=== PATIENT | male | born 1970 | race Caucasian/White ===

== ENCOUNTER 2024-05-03 06:56 | Outpatient (OUT) | payer MEDICAID, SELFPAY ==
--- NOTE | 2024-05-03 07:15 | NM_ITS ---
Patient Name: WILLIE CANTU MR#: [id number] : 1970 Exam Date: 05/03/2024 Ordering Doctor: DR. ORTIZ TENORIO M.D. RADIOLOGY REPORT PROCEDURE: NM CATHY PERF SPECT REST STR COMPARISON: None. INDICATIONS: PRE PROCEDURE CARDIOVASCULAR EXAM, CORONARY ARTERY DISEASE TECHNIQUE: Exam Description: Stress/Rest one day protocol gated SPECT Rest Imagin.3 mCi Tc-99m Cardiolite IV on 05/03/2024 Stress Imaging 29.9 mCi Tc-99m Cardiolite IV on 05/03/2024 Exercise Protocol: 0.4 mg Lexiscan given IV Heart Rate (bpm): Rest: 63 Max: 92 PMHR: 55 Blood Pressure: Rest: 128/78 Max: 156/83 Symptoms: Rest and peak stress ECG findings were pending and the exercise portion of the study was pending per attending physician Dr. PFEIFFER . For more details please see separate cardiac stress test report. FINDINGS: QUALITY OF STUDY: Good. PERFUSION DEFECT: LOCATION: Apical anterior. [place]. SIZE: Small (1-2 segments). SEVERITY: Mild. TYPE: Persistent. WALL MOTION: Normal. LV SIZE: Normal. 99 mL. TID / TCD: None; 0.9 LVEF: Normal. Calculated EF 74%. SUMMARY: Myocardial perfusion imaging study has ABNORMAL findings. CONCLUSION: 1. Small area of decreased uptake in the distal anterior wall/apex. I favor apically thinning 2. No reversible ischemia 3. Pending exercise test results Dictated by: Shamar Boo MD on 05/03/2024 at 15:45 Approved by: Shamar Boo MD on 05/03/2024 at 15:46
[2024-05-03] MEDS: REGADENOSON 0.4 MG/5 ML SYRINGE IV (09:20)
== END 2024-05-03 06:57 | disposition home or self-care (01) ==
LOC: NM 07:01
PROVIDERS: Visit Provider Internal Medicine Cardiovascular Disease
DX: R06.09 Other forms of dyspnea (principal); I25.118 Atherosclerotic heart disease of native coronary artery with other forms of angina pectoris
CPT/HCPCS: 78452; 93017; A9500; J2785

== ENCOUNTER 2024-05-04 13:40 | Outpatient (OUT) | payer MEDICAID, SELFPAY ==
--- NOTE | 2024-05-04 14:00 | CA_ITS ---
Patient Name: WILLIE CANTU MR#: [id number] : 1970 Exam Date: 05/04/2024 Ordering Doctor: DR. ORTIZ TENORIO M.D. ECHOCARDIOGRAM REPORT PROCEDURE: CA ECHO DOPPLER COMPLETE INDICATIONS: Dyspnea on exertion, WI, cardiac stent, hypertension, smoker COMPARISON: None. DESCRIPTION: COMPLETE ECHOCARDIOGRAM Real-time transthoracic echocardiography with 2D, M-mode, spectral and color flow Doppler performed. QUALITY: Technical quality was good. LEFT VENTRICLE: Normal chamber size. Mild left ventricular hypertrophy. LV EF: Global left ventricular systolic function is normal; visually estimated ejection fraction is 60 to 65%. No obvious wall motion abnormalities. DIASTOLIC: Normal diastolic function. ATRIAL SEPTUM: Inadequately seen. LEFT ATRIUM: Normal chamber size. RIGHT ATRIUM: Normal chamber size. RIGHT VENTRICLE: Normal chamber size. Normal right ventricular systolic function. TRICUSPID VALVE: Normal mobility and thickness. No stenosis with no regurgitation. Unable to assess right-sided pressures due to lack of measurable tricuspid regurgitation. MITRAL VALVE: Normal mobility and thickness. No evidence of mitral valve stenosis. There is no mitral annular calcification. No mitral regurgitation. AORTIC VALVE: Normal trileaflet appearance. No visible sclerosis. Normal leaflet mobility. No evidence of aortic valve stenosis. No aortic regurgitation. AORTIC ROOT: Normal diameter and appearance. Ascending aorta is normal in size. PULMONIC VALVE: Normal thickness and mobility. No stenosis. No regurgitation. PERICARDIUM: No evidence of pericardial effusion. IVC: Collapses with inspirations. IVC is normal in size. CONCLUSION: 1. Global left ventricular systolic function is normal; visually estimated ejection fraction is 60 to 65% 2. Normal right ventricular size and systolic function 3. Mild left ventricular hypertrophy 4. Normal diastolic function 5. No significant valvular abnormalities. Adult Echocardiography Procedure Report Left Ventricle LVEDD (3.7 - 5.6 cm): 4.72 cm LVESD (2.2 - 4.0 cm): 2.73 cm LVIVS thickness (0.6 - 1.2 cm): 0.97 cm LVPW thickness (0.5 - 1.0 cm): 1.25 cm e': 0.13 m/s E - e': 3.50 LVOT Max Gradient: 3.15 mm[Hg] LVOT Area (cm2): 0.89 m/s Peak Velocity (LVOT): 0.89 m/s Mean Velocity (LVOT): 0.54 m/s LVOT Diameter 2.23 cm Left Atrium LA Volume Index (2D A2C): 18.02 ml/m2 Left Atrium Systolic Dimension: 3.44 cm Mitral Valve MV E to A Ratio: 0.76 Mitral Valve A-Wave Peak Velocity: 0.58 m/s Mitral Valve E-Wave Peak Velocity: 0.45 m/s Right Ventricle Aorta AO Root Diam: 3.44 cm Ascending Ao Diam: 2.49 cm Aortic Valve AoV Area (Peak Sudeep): 2.29 cm2, 2.29 cm2 AoV Area (VTI): 2.66 cm2, 2.66 cm2 Peak Velocity(Antegrade Flow): 1.52 m/s Peak Gradient(Antegrade Flow): 9.20 mm[Hg] Mean Velocity(Antegrade Flow): 0.87 m/s Mean Gradient(Antegrade Flow): 3.88 mm[Hg] Velocity Time Integral: 26.52 cm Tricuspid Valve Pulmonic Valve Mean Gradient: 2.57 mm[Hg] Mean Velocity: 0.73 m/s Peak Velocity: 1.21 m/s, 1.23 m/s Peak Gradient: 6.02 mm[Hg], 5.88 mm[Hg] Right Atrium Right Atrium Systolic Pressure: 28.65 ml, 28.65 ml Dictated by: Eugenio Pascual M.D. on 05/05/2024 at 14:58 Approved by: Eugenio Pascual M.D. on 05/05/2024 at 15:18
== END 2024-05-04 13:41 | disposition home or self-care (01) ==
PROVIDERS: Visit Provider Internal Medicine Cardiovascular Disease
DX: R06.09 Other forms of dyspnea (principal)
CPT/HCPCS: 93306

== ENCOUNTER 2025-06-20 09:14 | Outpatient (OUT) | payer MEDICAID, SELFPAY ==
--- OUTSIDE RECORDS SUMMARY | 2025-06-07 09:20 | XMS_ITS ---
Author Organization [facility] Address [address] [place] [address] Care Team Providers Care Contracts Analyst Name Role Phone CHRISTIANO MORTON Primary Care Provider Evans Fowler Unavailable [phone] James Buitrago Unavailable [phone] REASON FOR VISIT S/P RT MIDFOOT ARTHODESIS, SX:03/07, Status post right midfoot fusion Medications Medication SIG (Take, Route, Frequency, Duration) Notes Start Date End Date Status losartan Activeibuprofen 800 mg1 tab(s) orally 3 times a day for 30 days5Active celecoxibActiveatorvastatinActiveacetaminophen-hydrocodone 325 mg-5 mg 1 tab(s) orally every 6 hours for 7 days As needed /5Activecyclobenzaprine 10 mg1 tab(s) orally 3 times a day, as needed for muscle spasms for 20 days/5Activeaspirin 325 mg1 tab(s) orally once a day for 14 day(s)5Active Encounters Encounter Location Date Provider Diagnosis [facility] [address] [place] [address] 06/07/2025 James Buitrago Encounter for other orthopedic aftercare Z47.89 ; Primary osteoarthritis of right foot M19.071 and 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 Assessments Encounter Date Diagnosis (ICD Code) Assessment Notes Treatment Notes Treatment Clinical Notes Section Notes 06/07/2025 Encounter for other orthopedic a ftercare (ICD-10 - Z47.89) Status post right midfoot mytftg2906/07/2025Primary osteoarthritis of right foot (ICD-10 - M19.071)Status post right midfoot tdqqhv2206/07/2025Osteoarthritis of right midfoot (ICD-10 - M19.071)Status post right midfoot wtjzlp6006/07/2025Other Patient examined and evaluated Interval x-rays obtained reviewed in detail Patient was provided updated refill Flexeril will start physical therapy follow- up in 2 months Status post right midfoot fusion Plan Of Treatment Medication Medication Name Sig Start Date Stop Date Notes cyclobenzaprine 10 mg 1 tab(s) orally 3 times a day, as needed for muscle spasms for 20 days 06/07/2025 06/26/2025 Treatment Notes Assessment Notes Other Patient examined and evaluated Interval x-rays obtained reviewed in detail Patient was provided updated refill Flexeril will start physical therapy follow-up in 2 months Pending Test Test Name Order Date NTH - Foot, right 3v WB - [id number] 06/07/20 25 NT - PT Evaluate and Treat x 6 weeks Next Appt Details Follow Up: 2 Months, Reason: Provider Name:James peralta, 08/08/2025 03:30:00 PM, [address] [place] [address], [phone], Progress Notes * WILLIE CANTUDOB: 1 (55 yo M)Acc No.[id number]:06/07/2025 Progress Notes Patient: WILLIE NORWOOD :?James Buitrago DPMDOB:1970???Age:55 Y ???Sex:MaleDate:06/07/2025Phone:[phone]:[address]Pcp:CHRISTIANO MORTON Subjective: * Chief Complaints: * 1 . S/P RT MIDFOOT ARTHODESIS, SX:03/07. 2. Status post right midfoot fusion. * HPI: ???Follow Up:? Dr. Buitrago patient encounter Patient is a 55-year-old male following up from a midfoot arthrodesis of the 2nd and 3rd tarsometatarsal joints performed 03/07/2025 last evaluated 05/10/2025. Interval x-rays were obtained reviewed indetail. Patient overall is doing well was provided updated prescription for Flexeril will be started physical therapy follow-up in the [facility] x 2 months. All questions concerns about medical management were otherwise addressed. * ROS: ???Review systems, 10 systems were reviewed all with benign findings other than stated in history of present illness. * Medical History: * Medications: T aking losartan , Taking celecoxib , Taking atorvastatin , Taking ibuprofen 800 mg tablet 1 tab(s) orally 3 times a day , Taking aspirin 325 mg tablet 1 tab(s) orally once a day , Taking acetaminophen-hydrocodone 325 mg-5 mg tablet 1 tab(s) orally every 6 hours As needed, stop date 06/12/2025 Objective: * Vitals: * Examination: ???General examination: ???Constitutional; alert and oriented x3, no acute distress Vascular; pedal pulses palpable skin temperature within normal limits capillary fill time within normal limits Derm; skin envelope is well maintained, hydrated no further acute soft tissue manifestations of note Neuro; epicritic and protopathic sensations grossly intact Muscular; anatomic alignment of right foot ankle. Minimal swelling over previous operative sites anatomic alignment of right foot ankle. ???X-ray imaging:: ???Imaging, 3 view foot x-ray was obtained including AP oblique lateral view. Patient have intact well-maintained hardware in the form of interfrag screw fixation with dorsal based staple fixation over distribution of the 2nd and 3rd tarsometatarsal joints. ??? Assessment: * Assessment: 1.?Encounter for other orthopedic aftercare - Z47.89 (Primary)???2.?Primary osteoarthritis of right foot - M19.071???3.?Osteoarthritis of right midfoot - M 19.071???Status post right midfoot fusion. Plan: * Treatment: Start cyclobenzaprine tablet, 10 mg, 1 tab(s), orally, 3 times a day, as needed for muscle spasms, 20 days, 60, Refills 0.?LAB: NTH - PT Evaluate and Treat x 6 weeks2.?Primary osteoarthritis of right foot?LAB: NTH - PT Evaluate and Treat x 6 weeks3.?Osteoarthritis of right midfoot?LAB: NTH - PT Evaluate and Treat x 6 weeks4.?Others?Imaging: NTH - Foot, right 3v WB - [id number] Notes: Patient examined and evaluated Interval x-rays obtained reviewed in detail Patient was provided updated refill Flexeril will start physical therapy follow- up in 2 months?? * Procedures: ??? Please note that this patient encounter was created using voice to text software. All efforts in regards to accuracy of documentation are made, however, some errors may be encountered during exchange underwriting consultant. ? * Follow Up: 2 Months Forms: * Images: * Electronic signature of James Buitrago DPM on 06/20/2025 at 09:19 AM EDTSign off status: Pending * Provider: Kiet Buitrago DPM Date: 1 Generated for Printing/Faxing/eTransmitting on:?06/20/2025 09:19 AM EDT History and Physical Notes * HPI (History of Present Illness) CategorySub-CategoryDetailNotesCategory NotesFollow Up Dr. Buitrago patient encounter Patient is a 55-year-old male following up from a midfoot arthrodesis of the 2nd and 3rd tarsometatarsal joints performed 03/07/2025 last evaluated 05/10/2025. Interval x-rays were obtained reviewed indetail. Patient overall is doing well was provided updated prescription for Flexeril will be started physical therapy follow-up in the [facility] x 2 months. All questions concerns about medical management were otherwise addressed. Examination CategorySub-CategoryDetailNotesCategory NotesGeneral examination Constitutional; alert and oriented x3, no acute distress Vascular; pedal pulses palpable skin temperature within normal limits capillary fill time within normal limits Derm; skin envelope is well maintained, hydrated no further acute soft tissue manifestations of note Neuro; epicritic and protopathic sensations grossly intact Muscular; anatomic alignment of right foot ankle. Minimal swelling over previous operative sites anatomic alignment of right foot ankle. X-ray imaging:Imaging, 3 view foot x-ray was obtained including AP oblique lateral view. Patient have intact well-maintained hardware in the form of interfrag screw fixation with dorsal based staple fixation over distribution of the 2nd and 3rd tarsometatarsal joints
--- OUTSIDE RECORDS SUMMARY | 2025-06-12 12:32 | XMS_ITS ---
Author Organization [facility] Address [address] [place] [address] Care Team Providers Care Sr. Manager Name Role Phone CHRISTIANO MORTON Primary Care Provider Evans Fowler Unavailable [phone] James Buitrago Unavailable [phone] REASON FOR VISIT Refill on [place] Medications Medication SIG (Take, Route, Frequency, Duration) Notes Start Date End Date Status acetaminophen-hydrocodone 325 mg-5 mg 1 tab(s) orally every 6 hours for 7 days As needed tive Encounters Encounter Location Date Provider Diagnosis [facility] [address] [place] [address] 06/12/2025 James Buitrago Encounter for other orthopedic aftercare Z47.89 Assessments Encounter Date Diagnosis (ICD Code) Assessment Notes Treatment Notes Treatment Clinical Notes Section Notes 06/12/2025 Encounter for other orthopedic a ftercare (ICD-10 - Z47.89) Plan Of Treatment Medication Medication Name Sig Start Date Stop Date Notes acetaminophen-hydrocodone 32 5 mg-5 mg 1 tab(s) orally every 6 hours for 7 days 06/13/2025 06/20/2025 Next Appt Details Provider Name:James peralta, 08/08/2025 03:30:00 PM, [address] [place] [address], [phone], Progress Notes * WILLIE CANTUDOB: 1 (55 yo M)Acc No.[id number]:06/12/2025 Patient:?WILLIE CANTU :1970???Age:55 Y???Sex:MalePhone:[phone] Address:[address] [place] [address], [address] * Refills Start acetaminophen-hydrocodone tablet, 325 mg-5 mg, orally, 28 Tablet, 1 tab(s), every 6 hours, 7 days, Refills=0 Subjective: * Chief Complaints: * R efill on [place] * Medical History: * Surgical History: * Hospitalization/Major Diagno stic Procedure: * Medications: Objective: * Vitals: * Physical Examination: ??? Assessment: * Assessment: 1.?Encounter for other orthopedic aftercare - Z47.89 (Primary)??? Plan: * Treatment: Start acetaminophen-hydrocodone tablet, 325 mg-5 mg, 1 tab(s), orally, every 6 hours As needed, 7 days, 28 Tablet, Refills 0.?? * Procedure Codes: * true * Date:?Generated for Printing/Faxing/eTransmitting on:?06/20/2025 09:19 AM EDT
--- OUTSIDE RECORDS SUMMARY | 2025-06-14 09:30 | XMS_ITS ---
Author Organization [facility] Address [address] [place] [address] Care Team Providers Care Loan Adviser Name Role Phone CHRISTIANO MORTON Primary Care Provider Evans Fowler Unavailable [phone] James Buitrago Unavailable [phone] REASON FOR VISIT S/P RT MIDFOOT ARTHODESIS, SX:03/07 Encounters Encounter Location Date Provider Diagnosis [facility] [address] [place] [address] [address] [place] [address] 06/14/2025 James Buitrago Plan Of Treatment Next Appt Details Provider Name:James peralta, 08/08/2025 03:30:00 PM, [address] [place] [address], [phone], Progress Notes * WILLIE CANTUDOB: 1 (55 yo M)Acc No.[id number]:06/14/2025 Progress Notes Patient: WILLIE NORWOOD :?James Buitrago DPMDOB:1970???Age:55 Y ???Sex:MaleDate:06/14/2025Phone:[phone]:[address] [place] [address], [place], [id number]:CHRISTIANO MORTON Subjective: * Chief Complaints: * 1 . S/P RT MIDFOOT ARTHODESIS, SX:03/07. * Medical History: Objective: * Vitals: Assessment: Plan: * Treatment: Forms: * Images: * Electronic signature of James Buitrago DPM on 06/20/2025 at 09:18 AM EDTSign off status: Pending * Provider: Kiet Buitrago DPM Date: Generated for Printing/Faxing/eTransmitting on:?06/20/2025 09:18 AM EDT
--- OUTSIDE RECORDS SUMMARY | 2025-06-19 09:02 | XMS_ITS ---
Author Organization [facility] Address [address] [place] [address] Care Team Providers Care Network Security Consultant Name Role Phone CHRISTIANO MORTON Primary Care Provider Evans Fowler Unavailable [phone] James Buitrago Unavailable [phone] REASON FOR VISIT Refill-[place] Medications Medication SIG (Take, Route, Frequency, Duration) Notes Start Date End Date Status acetaminophen-hydrocodone 325 mg-5 mg 1 tab(s) orally every 6 hours, as needed for pain for 7 days tive Encounters Encounter Location Date Provider Diagnosis [facility] [address] [place] [address] 06/19/2025 James Buitrago Primary osteoarthrit is of right foot M19.071 Assessments Encounter Date Diagnosis (ICD Code) Assessment Notes Treatment Notes Treatment Clinical Notes Section Notes 06/19/2025 Primary osteoarthritis of right foot (ICD-10 - M19.071) Plan Of Treatment Medication Medication Name Sig Start Date Stop Date Notes acetaminophen-hydrocodone 32 5 mg-5 mg 1 tab(s) orally every 6 hours, as needed for pain for 7 days 06/19/2025 06/25/2025 Next Appt Details Provider Name:James peralta, 08/08/2025 03:30:00 PM, [address] [place] [address], [phone], Progress Notes * WILLIE CANTUDOB: 1 (55 yo M)Acc No.[id number]:06/19/2025 Patient:?WILLIE CANTU :1970???Age:55 Y???Sex:MalePhone:[phone] Address:[address] [place] [address], [address] * Refills Start acetaminophen-hydrocodone tablet, 325 mg-5 mg, orally, 28, 1 tab(s), every 6 hours, as neededfor pain, 7 days, Refills=0 Subjective: * Chief Complaints: * R efill-[place] * Medical History: * Surgical History: * Hospitalization/Major Diagno stic Procedure: * Medications: Objective: * Vitals: * Physical Examination: ??? Assessment: * Assessment: 1.?Primary osteoarthritis of right foot - M19.071 (Primary)??? Plan: * Treatment: Start acetaminophen-hydrocodone tablet, 325 mg-5 mg, 1 tab(s), orally, every 6 hours, as needed forpain, 7 days, 28, Refills 0.?? * Procedure Codes: * true * Date:?Generated for Printing/Faxing/eTransmitting on:?06/20/2025 09:19 AM EDT
--- OUTSIDE RECORDS SUMMARY | 2025-06-19 16:00 | XMS_ITS | Encounter Summary ---
Author Organization [facility] Healthcare Address [address] [facility] [place] [address] Care Team Providers Care Sheet Metal Contractor Name Role Phone Rosanne Stafford MD Primary Care Provider [phone] Reason for Visit * Rehabilitation - Outpatient (Routine) - AuthorizedSpecialtyDiagnoses / ProceduresReferred By ContactReferred To ContactPhysical Therapy Diagnoses Encounter for other orthopedic aftercare Primary osteoarthritis, right ankle and foot Procedures PA PHYSICAL THERAPY EVALUATION HIGH COMPLEX 45 MINS James Buitrago, LORM [address] [place] [address] Phone: tel: fax: Josué Cox, PT [address] [place] [address] Phone: tel: fax: Referral IDStatusReasonStart DateExpiration DateVisits RequestedVisits [id number]/16/20254/030 Encounter Details DateTypeDepartmentCare Team (Latest Contact Info)Uojxctgdsfs64/28/2025 4:00 PM EDTEvaluation [facility] [address] [place] [address] Josué Cox, PT [address] [place] [address] Right foot pain (Primary Dx); Arthritis of right foot Social History Tobacco UseTypesPacks/DayYears UsedDateSmoking Tobacco: NeverSmokeless Tobacco: NeverSex and Gender InformationValueDate RecordedSex Assigned at BirthNot on fileLegal VenZwlh1503/16/2023 11:25 AM EDTGender IdentityNot on fileSexual OrientationNot on filedocumented as of this encounter Progress Notes * Josué Cox, PT - 06/19/2025 4:00 PM EDT Images from the original note were not included. Physical Therapy Physical Therapy Evaluation Visit Patient Name: Luis Lora Today's Date: 06/19/2025 Encounter Diagnoses Name Primary? Right foot pain Yes Arthritis of right foot Visit number: 1 Subjective Luis Lora 55 y.o. male presents to physical therapy w/ chief c/o R foot pain. Mechanism of Onset: S/P RT MIDFOOT ARTHODESIS, SX:03/07/25, was in soft cast, cast, then boot WBAT,out of boot ~3 weeks per pt Current deficits: pain, impaired gait, decreased flexibility Pain: 12/30 Location: R foot top of mid foot and arch area Aggravating Factors: standing, walking, ADLs/self care, work Relieving factors: rest Occupation: standing, min walking Precautions: hx of L ALANIS LEFS=70% impaired at IE Objective Gait: mildly antalgic lacking heel-toe and especially push off terminal stance. Min decreased flexibility R calf/achilles and plantar fascia Some hypersensitivity present especially top of foot and incision. R ankle strength grossly 4/5 MMT Treatment Interventions Education: HEP education with demonstration with handout and review, Educated on Eval Findings and POC, arch massage vs frozen water bottle x 15 min self care/home maintenance Manual Therapy: STM/massage including scar, desensitization x 8 min Therapeutic Exercise: per MARYJANE grid, ROM, flexibility, strength x 15 min sup Gait Training: prn for improved quality Modalities: heat/cold prn Assessment/Plan R foot pain, decreased ROM/flexibility, impaired gait, decreased standing activity tolerance and QOL Patient Goals Short Term Goal #1: pt will self report impairment less than or equal to 10% per LEFS at DC from PT Short Term Goal #2: pt will demo normalized quality of gait, heel toe, push off and reciprical pattern up and down steps. Short Term Goal #3: pt will be ind with HEP for maintenance at DC from PT Pt will benefit from skilled PT to address the above impairments for 2x/week for 4-6 weeks pending pt needs/progress. I hereby deem this POC medically necessary. Please sign below. Date: documented in this encounter Plan of Treatment DateTypeDepartmentCare Team (Latest Contact Info)Hviselwcgql97/30/2025 3:00 PM EDTTreatment [facility] [address] [place] [phone] Michelle Langley, DISTRIBUTION WAREHOUSE MANAGER [address] [place] [address] 06/26/2025 3:30 PM ESTTreatment [facility] [address] [place] [facility] [phone] Michelle Langley, DISTRIBUTION WAREHOUSE MANAGER [address] [place] [address] 06/28/2025 3:30 PM ESTTreatment [facility] [address] [place] [phone] Michelle Langley, DISTRIBUTION WAREHOUSE MANAGER [address] [place] [address] 07/25/2025 3:00 PM ESTOffice Visit [facility] [address] [place] [address] Pao Acuna PA [address] [place] [address] 05/17/2026 11:00 AM EDTOffice Visit [facility] [address] [place] [address] Pao Acuna PA [address] [address] documented as of this encounter Visit Diagnoses Diagnosis Right foot pain- Primary Pain in soft tissues of limb Arthritis of right foot documented in this encounter Care Teams Team MemberRelationshipSpecialtyStart DateEnd Date Rosanne Stafford MD PCP - GeneralFamily Ywkuoxap06/12/23documented as of this encounter
--- OUTSIDE RECORDS SUMMARY | 2025-06-20 09:19 | XMS_ITS | Encounter Summary ---
Author Organization [facility] Healthcare Address [address] [facility] [address] [facility] [place] [address] Care Team Providers Care Relocation Counselor Name Role Phone Rosanne Stafford MD Primary Care Provider Encounter Details DateTypeDepartmentCare Team (Latest Contact Info)Bfabelhgays73/28/2025amboo flowsheet [facility] [address] [place] [address] Josué Cox, PT [address] [place], [place] [phone] Social History Tobacco UseTypesPacks/DayYears UsedDateSmoking Tobacco: NeverSmokeless Tobacco: NeverSex and Gender InformationValueDate RecordedSex Assigned at BirthNot on fileLegal MlpCcyw8103/16/2023 11:25 AM EDTGender IdentityNot on fileSexual OrientationNot on filedocumented as of this encounter Plan of Treatment DateTypeDeencompass health rehabilitation hospitalCare Team (Latest Contact Info)Wislodngael85/30/2025 3:00 PM EDTTreatment [facility] [address] [place] [address] Michelle Langley, THEATRE INSTRUCTOR [address] [place] [address] 06/26/2025 3:30 PM ESTTreatment [facility] [address] [place] [address] Michelle Langley, THEATRE INSTRUCTOR [address] [place] [address] 06/28/2025 3:30 PM ESTTreatment [facility] [place] [address] [facility] [place] [phone] Michelle Langley PTA [address] [facility] [place] [address] 07/25/2025 3:00 PM ESTOffice Visit [facility] [address] [place] [address] Pao Acuna PA [address] [place] [address] 05/17/2026 11:00 AM EDTOffice Visit [facility] [address] [place] [phone] Pao Acuna PA [address] [place] [address] documented as of this encounter Visit Diagnoses Not on filedocumented in this encounter Care Teams Team MemberRelationshipSpecialtyStart DateEnd Date Rosanne Stafford MD PCP - GeneralFamily Sjtkkwjg44/12/23documented as of this encounter
--- OUTSIDE RECORDS SUMMARY | 2025-06-20 09:19 | XMS_ITS | Encounter Summary ---
Author Organization [facility] Healthcare Address [address] [facility] [place] [address] Care Team Providers Care Contract Sheltered Workshop Supervisor Name Role Phone Rosanne Stafford MD Primary Care Provider [phone] Encounter Details DateTypeDepartmentCare Team (Latest Contact Info)Xzxjzvaotzk03/28/2025Plan of Care Documentation [facility] [address] [place] [address] Social History Tobacco UseTypesPacks/DayYears UsedDateSmoking Tobacco: NeverSmokeless Tobacco: NeverSex and Gender InformationValueDate RecordedSex Assigned at BirthNot on fileLegal DbjXyat2403/16/2023 11:25 AM EDTGender IdentityNot on fileSexual OrientationNot on filedocumented as of this encounter Plan of Treatment DateTypeDepartchildren's hospital of michiganCare Team (Latest Contact Info)Qgupqjldkpx11/30/2025 3:00 PM EDTTreatment [facility] [address] [place] [address] Michelle Langley, SUSTAINABILITY EXECUTIVE DIRECTOR [address] [place], [place] [address] 06/26/2025 3:30 PM ESTTreatment [facility] [address] [place] [address] Michelle Langley SUSTAINABILITY EXECUTIVE DIRECTOR [address] [place], [place] [address] 06/28/2025 3:30 PM ESTTreatment [facility] [address] [place] [address] Michelle Langley, SUSTAINABILITY EXECUTIVE DIRECTOR [address] [place] [address] 07/25/2025 3:00 PM ESTOffice Visit [facility] [address] [place] [phone] Pao Acuna PA [address] [place] [address] 05/17/2026 11:00 AM EDTOffice Visit [facility] [address] [place] [address] Pao Acuna PA [address] [place] [address] documented as of this encounter Visit Diagnoses Not on filedocumented in this encounter Care Teams Team MemberRelationshipSpecialtyStart DateEnd Date Rosanne Stafford MD PCP - GeneralFamily Onowltgk30/12/23documented as of this encounter
--- OUTSIDE RECORDS SUMMARY | 2025-06-20 09:19 | XMS_ITS | Clinical Summary ---
Author Organization [facility] Address [id number] [address] [place] [address] Care Team Providers Care Chisel Worker Name Role Phone Harpreet Bradshaw MD Primary Care Provider [phone] Allergies No known active allergies Medications MedicationSigDispense QuantityRefillsLast FilledStart DateEnd DateStatus atorvastatin (LIPITOR) 20 mg tablet Take 1 tablet (20 mg total) by mouth in the morning.Active omeprazole (PriLOSEC OTC) 20 mg EC tablet Take 1 tablet (20 mg total) by mouth in the morning.Active celecoxib (CeleBREX) 100 mg capsule Take 1 capsule (100 mg total) by mouth in the morning and 1 capsule (100 mg total) before bedtime.Active losartan-hydroCHLOROthiazide (HYZAAR) 100-12.5 mg per tablet Take 1 tablet by mouth in the morning.Active aspirin 81 mg Take 1 tablet (81 mg total) by mouth in the morning.Active Social History Tobacco UseTypesPacks/DayYears UsedDateSmoking Tobacco: Every DayCigarettes Smokeless Tobacco: Never Tobacco Cessation:Ready to Q uit: Not Asked; Counseling Given: Not Answered Alcohol UseStandard Drinks/KkoeUtiypxbnKgw73 (1 standard drink = 0.6 oz pure alcohol)ChildcareAnswerDate OljyfvpjVmkvxcwjsItatycn13/12/2019EmploymentAnswer Date DvfomfniHpwmlzpywvUyvgtda22/12/2019Hunger ScreeningAnswerDate Recorded Within the past 12 months we worried whether our food would run out before we got money to buy more.Never True01/17/2025Within the past 12 months the food we bought just didn't last and we didn't have money to get more.Never True 01/17/2025Sex and Gender InformationValueDate RecordedSex Assigned at BirthNot on fileLegal NyfCwwv2603/28/2015 11:42 AM EDTGender IdentityNot on fileSexual OrientationNot on file Last Filed Vital Signs Vital SignReadingTime TakenCommentsBlood Hzthdmdv579/9101/17/2025 1:36 PM EDT Vrtnf150001/17/2025 1:36 PM QSRSdfjgzhkrpf57 ??C (98.6 ??F)01/17/2025 1:36 PM EDT Respiratory Ezdt269401/17/2025 1:36 PM EDTOxygen Tivpuecfqm22%01/17/2025 1:36 PM EDTInhaled Oxygen Concentration--Forerk182.3 kg (230 lb)01/17/2025 1:36 PM EDT Lznmlg478.9 cm (6')01/17/2025 1:36 PM EDTBody Mass Index31.19001/17/2025 1:36 PM EDT Plan of Treatment Health MaintenanceDue DateLast DoneCommentsTobacco Jykouborzk1971 Depression Rhsyonkyt51/11/1983Tobacco Wvwabvplc77/11/1983Adult BMI Follow Up Plan1989Zoster (Shingles) Vaccine (1 of 2)2021OVID-19 Vaccine ( - season)501/10/2021, 01/15/2021, 12/18/2020Influenza Vaccine 04/23/2025dult BMI Vtgtgefam10DTaP,Tdap and Td Vaccines (3 - Td or Tdap), 09/18/2011 Medical Devices Not on file Insurance * Guarantor: Luis LoraAccount TypeRelation to PatientDate of PhoneBilling AddressPersonal/AkgiszFukr1970 [address] [address] Care Teams Team MemberRelationshipSpecialtyStart DateEnd Date Harpreet Bradshaw MD [address] [place] [address] [facility] - [facility]/17/25
--- OUTSIDE RECORDS SUMMARY | 2025-06-20 09:19 | XMS_ITS | Encounter Summary ---
Author Organization [facility] Healthcare Address [address] [place] [address] Care Team Providers Care Global Regulatory Lead Name Role Phone Rosanne Stafford MD Primary Care Provider Encounter Details DateTypeDepartmentCare Team (Latest Contact Info)Giqlkkscyby93/28/2025Travel Social History Tobacco UseTypesPacks/DayYears UsedDateSmoking Tobacco: NeverSmokeless Tobacco: NeverSex and Gender InformationValueDate RecordedSex Assigned at BirthNot on fileLegal PnyEluj0303/16/2023 11:25 AM EDTGender IdentityNot on fileSexual OrientationNot on filedocumented as of this encounter Plan of Treatment DateTypeDeparttrinity health grand haven hospitalCare Team (Latest Contact Info)Deikmbjapbn36/30/2025 3:00 PM EDTTreatment [facility] [address] [place] [address] Michelle Langley, CHERRY DIPPER [address] [place] [address] 06/26/2025 3:30 PM ESTTreatment [facility] [address] [place] [address] Michelle Langley, CHERRY DIPPER [address] [place] [address] 06/28/2025 3:30 PM ESTTreatment [facility] [address] [place] [address] Michelle Langley, CHERRY DIPPER [address] [place] [address] 07/25/2025 3:00 PM ESTOffice Visit [facility] [address] [place] [address] Pao Acuna PA [address] [place] [address] 05/17/2026 11:00 AM EDTOffice Visit [facility] [address] [place] [address] Pao Acuna PA [address] [place] [address] documented as of this encounter Visit Diagnoses Not on filedocumented in this encounter Care Teams Team MemberRelationshipSpecialtyStart DateEnd Date Rosanne Stafford MD PCP - GeneralFamily Lliduesc34/12/23documented as of this encounter
--- OUTSIDE RECORDS SUMMARY | 2025-06-20 09:19 | XMS_ITS | Clinical Summary ---
Author Organization [facility] Healthcare Address [address] [place] [address] Care Team Providers Care Line Erector Name Role Phone Rosanne Stafford MD Primary Care Provider [phone] Allergies No known active allergies Medications MedicationSigDispense QuantityRefillsLast FilledStart DateEnd DateStatus omeprazole (PriLOSEC) [address] capsule Take 40 mg by mouth in the morning.Active doxazosin (Cardura) 2 MG tablet 03/12/2023ctive cyclobenzaprine (Flexeril) 10 MG tablet 03/12/2023ctive predniSONE (Deltasone) 50 MG tablet Take 50 mg by mouth in the morning.3Active atorvastatin (Lipitor) 20 MG tablet Take 20 mg by mouth Daily5Active losartan-hydroCHLOROthiazide (Hyzaar) 100-12.5 MG tablet Take 1 tablet by mouth Daily506Active Active Problems ProblemNoted DateDiagnosed DateRight foot pain06/19/2025rthritis of right foot 06/19/2025Depressive /09/2012Tinnitus, flkxhtugb38/07/2012History of alcohol abuse08/04/2011History of drug abuse08/04/2011NSTEMI (non-ST elevated myocardial infarction)08/04/2011S/P angioplasty with stent08/04/2011 Overview (08/05/2023): S/P angioplasty with bare metal stent to left distal circumflex artery Tobacco use ogkknota34/13/2011 Encounters DateTypeDepartmentCare FnmmLcugdfvrqve54/28/2025 4:00 PM EDTEvaluation [facility] [address] [place] [phone] Josué Cox, PT Right foot pain (Primary Dx); Arthritis of right foot06/19/2025Plan of Care Documentation [facility] [address] [place] [address] 06/19/2025amboo flowsheet [facility] [address] [place] [address] Josué Cox, PT 06/19/20259224Ppxfwk49/24/2025 1:40 PM EDTOffice Visit [facility] [address] [place] [address] Pao Acuna PA Bacterial folliculitis (Primary Dx); Seborrheic keratosis; Melanocytic nevus of trunk; Inflamed seborrheic lnearlkbz01/24/2025amb flowsheet [facility] [address] [place] [address] Pao Acuna PA 05/16/2025Travelfrom Last 3 Months Immunizations ImmunizationAdministration DatesNext HqvKxpx4202/01/2018,09/18/2011 Social History Tobacco UseTypesPacks/DayYears UsedDateSmoking Tobacco: NeverSmokeless Tobacco: Never Tobacco Cessation:Counseling Given: Not Answered Sex and Gender InformationValueDate RecordedSex Assigned at BirthNot on file Legal QbwHhsw0203/16/2023 11:25 AM EDTGender IdentityNot on fileSexual Orientation Not on file Plan of Treatment DateTypeDepartmentCare Team (Latest Contact Info)Uswvjelxscy26/30/2025 3:00 PM EDTTreatment [facility] [address] [place] [address] Michelle Langley PTA [address] [place] [address] 06/26/2025 3:30 PM ESTTreatment [facility] [address] [place] [address] Michelle Langley, BAG PRESS OPERATOR [address] [facility] [place] [address] 06/28/2025 3:30 PM ESTTreatment [facility] [address] [place] [address] Michelle Langley, BAG PRESS OPERATOR [address] [facility] [place] [address] 07/25/2025 3:00 PM ESTOffice Visit [facility] [address] [place] [address] Pao Acuna PA [address] [place] [address] 05/17/2026 11:00 AM EDTOffice Visit [facility] [address] [place] [address] Pao Acuna PA [address] [place] [address] Health MaintenanceDue DateLast DoneCommentsCT Ewmuagotfsvv1971FIT-DNA 1971FIT1971FOBT05/03/19717103Bwmqqdrscpbng1971MMR Vaccines (1 of 1 - Standard series)1972Hepatitis B Vaccines (1 of 3 - 19+ 3-dose series) 1990DTaP/Tdap/Td Vaccines (3 - Td or Tdap), 09/18/2011 COVID-19 Vaccine (2024- season)501/10/2021, 01/15/2021, 12/18/2020Influenza Vaccine (#1)04/23/20252771Rmeijrikhwg27/11/88396110/31/2024 Colorectal Cancer Zjwumtrgi92/11/2035HIB VaccinesAged OutNo longer eligible based on patient's age to complete this topicHPV VaccinesAged OutNo longer eligible based on patient's age to complete this topicHepatitis A VaccinesAged OutNo longer eligible based on patient's age to complete this topicIPV Vaccines Aged OutNo longer eligible based on patient's age to complete this topic Meningococcal B VaccineAged OutNo longer eligible based on patient's age to complete this topicMeningococcal VaccineAged OutNo longer eligible based on patient's age to complete this topicPneumococcal Vaccine: Pediatrics (0 to 5 Years) and At-Risk Patients (6 to 64 Years)Aged OutNo longer eligible based on patient's age to complete this topicRotavirus VaccinesAged OutNo longer eligible based on patient's age to complete this topic Procedures Procedure NamePriorityDate/TimeAssociated DiagnosisCommentsCRYOTHERAPY SKIN IWPRBXUvrfvdo54/24/2025 1:08 PM EDT Inflamed seborrheic keratosis from Last 3 Months Results * Cryotherapy, skin lesion (05/16/2025 1:08 PM EDT) Narrative Authorizing ProviderResult TypeResult StatusAlison L Armand PADERM PROCEDURE ORDERABLESFinal Result from Last 3 Months Insurance Care Teams Team MemberRelationshipSpecialtyStart DateEnd Date Rosanne Stafford MD PCP - GeneralFamily Eiutzrni10/12/23
--- OUTSIDE RECORDS SUMMARY | 2025-06-20 09:20 | XMS_ITS | Clinical Summary ---
Author Organization [facility] Address [address] [place] [address] Care Team Providers Care Manager Basketball Name Role Phone Harpreet Bradshaw MD Primary Care Provider [phone] Allergies No known active allergies Medications MedicationSigDispense QuantityRefillsLast FilledStart DateEnd DateStatus atorvastatin (Lipitor) 20 mg tablet Take 1 tablet by mouth in the morning.04/13/2024ctive losartan-hydrochlorothiazide (Hyzaar) 50-12.5 mg tablet Take 2 tablets by mouth in the morning.04/13/2024ctive aspirin 81 mg EC tablet Take 81 mg by mouth in the morning.Active celecoxib (CeleBREX) 100 mg capsule Take 100 mg by mouth in the morning.4Active amLODIPine (Norvasc) 10 mg tablet Indications:Essential hypertensionTake 1 tablet (10 mg) by mouth in the morning. 30 tablet 1115Active Additional Information Patient not taking.Reported on 12/04/2024 omeprazole (PriLOSEC) [address] capsule Take 20 mg by mouth before breakfast.5Active ondansetron ODT (Zofran-ODT) 4 mg disintegrating tablet 4 mg every 8 (eight) hours if needed.5Active losartan-hydrochlorothiazide (Hyzaar) 100-12.5 mg tablet Take 1 tablet by mouth in the morning.5Active Active Problems ProblemNoted DateDiagnosed DateAftercare following joint replacement surgery 06/19/2025Osteoarthritis of right hkgdyik9206/19/2025Presence of left artificial hip joint06/19/2025Encounter for other orthopedic bcpdhikiv32/28/2025Mixed sysrdvjbomgpzt25/14/5930Imvhmzkajdv37/14/2025Pain in right foot12/01/2024 Tendinitis of right wjkzikhe60/11/2025Status post total replacement of left hip 06/19/2024reoperative aoglmucpi71/04/2024OE (dyspnea on exertion)04/26/2024 Coronary artery disease involving gambell coronary artery of gambell heart 04/26/2024Essential popfgtzpnovl97/04/2024S/P primary angioplasty with coronary stent04/26/2024Tobacco abuse04/26/2024rimary localized osteoarthritis of pelvic region and thigh04/26/2024epressive wgfjcjjy84/09/2012Tinnitus, bilateral 09/29/2011History of alcohol abuse08/04/2011NSTEMI (non-ST elevated myocardial infarction)08/04/2011S/P angioplasty with stent08/04/2011 Overview (04/26/2024): S/P angioplasty with bare metal stent to left distal circumflex artery Resolved Problems ProblemNoted DateDiagnosed DateResolved DatePure bfmdiedbynnombxgjkbq02/04/2024 12/04/2024 Family History Medical HistoryRelationNameCommentsHeart attackFatherHeart attackMaternal GrandmotherLung cancerMotherHeart attackPaternal GrandfatherStrokePaternal GrandfatherRelationNameStatusCommentsFatherDeceasedMaternal GrandmotherMother DeceasedPaternal Grandfather Social History Tobacco UseTypesPacks/DayYears UsedDateSmoking Tobacco: Every DayCigarettes0.536 Smokeless Tobacco: Never Tobacco Cessation:Ready to Q uit: Not Asked; Counseling Given: Not Answered Alcohol UseStandard Drinks/WeekCommentsYes7 (1 standard drink = 0.6 oz pure alcohol)Her used to drink every day since he was [age]Sex and Gender Information ValueDate RecordedSex Assigned at TfnntAhgy08/24/2025 3:33 PM EDTLegal SexMale 04/20/2024 10:19 AM EDTGender SisyvkbaApkr80/24/2025 3:33 PM EDTSexual OrientationHeterosexual or Innireex79/24/2025 3:33 PM EDT Last Filed Vital Signs Vital SignReadingTime TakenCommentsBlood Nbdxwibs098/7704 2:52 PM EDT Yqybv5634 2:52 PM EDTTemperature--Respiratory Rate--Oxygen Gwvmpemcyd66% 12/04/2024 2:52 PM EDTInhaled Oxygen Concentration--Zikhsi224 kg (227 lb) 12/04/2024 2:52 PM HKWAxaqrz426.8 cm (5' 10 )12/04/2024 2:52 PM EDTBody Mass Index32.57012/04/2024 2:52 PM EDT Plan of Treatment DateTypeDepartmentCare Team (Latest Contact Info)Sjklabfzses49/29/2025 10:20 AM EDTOffice Visit [facility] [address] [place] [address] Alfonso Ang MD [address] [place] [address] Health MaintenanceDue DateLast DoneCommentsCT Iggxjsnuxini1971Diabetes: Hemoglobin A1C1971FIT-DNA1971FIT1971FOBT1971 Fjjvcnugdqhsy1971Depression Nrxfcqeet56/11/1983Hepatitis B Vaccines (1 of 3 - 19+ 3-dose series)1990Pneumococcal Vaccine: Pediatrics (0 to 5 Years) and At-Risk Patients (6 to 64 Years) (1 of 2 - PCV)1990Zoster Vaccines (1 of 2)1COVID-19 Vaccine (4 - 2024- season)501/10/2021, 01/15/2021, 12/18/2020Influenza Vaccine (#1)5Adult Wfwzoca2902/02/2028 02/01/2018, 09/18/20111685Rkxmppdcuqg03/11/10134210/31/2024, 10/31/2024olorectal Cancer Rbeoxdaob16/11/2035HIB VaccinesAged OutNo longer eligible based on patient's age to complete this topicHPV VaccinesAged OutNo longer eligible based on patient's age to complete this topicIPV VaccinesAged OutNo longer eligible based on patient's age to complete this topicMeningococcal B VaccineAged OutNo longer eligible based on patient's age to complete this topicMeningococcal VaccineAged OutNo longer eligible based on patient's age to complete this topic Rotavirus VaccinesAged OutNo longer eligible based on patient's age to complete this topic Insurance * Guarantor: Luis Lora TypeRelation to PatientDate of BirthPhone Billing AddressPersonal/CjvzvkApyx1970 [facility] [place] [address] Care Teams Team MemberRelationshipSpecialtyStart DateEnd Date Harpreet Bradshaw MD [address] [place] [address] PCP - GeneralFamily Medicine04/25/24
--- OUTSIDE RECORDS SUMMARY | 2025-06-20 09:20 | XMS_ITS | Patient Health Record ---
Author Organization [facility] e [facility] Address [address] [place] [address] Care Team Providers Care Academic Affairs Assistant Name Role Phone CHRISTIANO MORTON Primary Care Provider Evans Fowler Unavailable [phone] James Buitrago Unavailable [phone] Vijaya Del Real Unavailable [phone] Jean Ritter Unavailable [phone] Allergies No Known Allergies Results Component Value Reference Range Notes PEH HIP LEFT W/ PELVIS 2-3V- 90303 Reviewed date:08/03/2024 10:53:19 AM Interpretation: Performing Lab: Notes/Report: PEH HIP LEFT W/ PELVIS 2-3V- 72682 Reviewed date:07/06/2024 09:17:45 AM Interpretation: Performing Lab: Notes/Report: PEH Foot, right 3v -20440 Reviewed date:12/12/2024 02:41:22 PM Interpretation: Performing Lab: Notes/Report: Hgb Hct Reviewed date:05/01/2025 08:11:25 AM Interpretation: Performing Lab: Notes/Report: [facility] [address] [place] [address] Manager Procurement: Shamar Stephenson MD Hemoglobin 12.8 13.0-17.0 g/dL Hyczdligyb39.340.7-50.3 %Performing Lab:see [facility] [address] [place] [address] Surgery Scheduling (Not yet reviewed by provider) Interpretation: Performing Lab: Notes/Report: Primary Insurance Company:MEDICAID HUMANASurgeon/Assist:DR. Rosales Location:[facility]-OPSurgery Date & Time:03/07/2025 @1:00 PMHosp arrival time day of: 10:30 AMSurgery End Time:90 MINSProcedure:RIGHT MIDFOOT TARSOMETATARSAL JOINT ARTHRODESIS FIRST/SECOND/THIRDSpecial Equipment:PODIATRY TRAY, DANICA CORDLESS BATTERY POWER, K-WIRE TRAY, PEARSHAPED BUR, Exec MEDICAL/DANICA 4.0 HEADLESS AND HEADED COMPRESSION SCREWS, Naldo LAPA FUSE PLATE, Exec MEDICAL BONY, DANICA VARIAX CP PLATE, Naldo ALLOMATRIX PLUS AUGMENT, ORTHOFIX BONE STIMULATOR (ELFEGO)BMI:-C-Arm:YES (SAME SIDE)Mini C-Arm:NO Diagnosis:M19.071 PRIMARY OSTEOARTHRITIS FOOT AND ANKLE RIGHTAdmission Type:NO Anesthesia Type/CPNB:GENERAL WITH PRE-OP POPLITEAL BLOCK SUPINE BedNO Post-op Appointment Date:03/15/2025 @12:15 PM RICK OFFICELatex AllergyNOLab Location:TMHLab Date/Time:COMPLETEDLab Time:-[facility] Date/T- [employer] Music Teacher:Soren Physician:DR. MORTON/DR. Chen Appt Date/T PENDINGHistory & Physical Appointment Date/:WILL NEED UPDATEDPre-op labs/Chest Order:-PT Appointment Date/Time:-Had or have MRSA/Direct contact w MRSA pt/HCW- [facility]-Had dental problems/Yes-no/type:-CPNB:-Hull 2 Inhibitor - (MPOAP- Jorge/SHANTELLPAT Date and Time-Noel Pillow-XR OR Foot Right Reviewed date:03/09/2025 10:37:46 AM Interpretation: Performing Lab: Notes/Report: Patient Name: Willie Lora This report was not created by a radiologist, physician, or advanced practice provider. MRI FOOT RIGHT WO CONTRAST Reviewed date:12/22/2024 12:09:10 PM Interpretation: Performing Lab: Notes/Report: EXAMINATION: Performed at: [address] [place] [address] Reason For Referral Reason APPROVED MEDICAID HU VIGNESH........ [facility] MRI RIGHT FOOT Diagnosis 1 Metatarsal stress fr acture of left foot (M84.375A) Referral Organization [facility] Referring Provider First Name James Referring Provider Last Name Minna Referring Provider Speciality Orthopedic Surgery Referred Organization [facility] Scheduling Procedure 1 MRI Lower Extremity NOT JOINT W/O DYE (65653) General Notes Tesfaye Barkley 11/20/2024 05:40:43 PM >, Roselyn Cotter 11/24/2024 10:07:19 AM > APPROVED Auth #[id number], Valid 11/27/2024 - 12/27/2024, auth scanned in, faxed to Filippo Patel Melissa J 11/24/2024 10:28:50 AM >noted Referral Priority Routine Reason MCP HUMANA........MR I RIGHT ANKLE WITHOUT CONTRAST Diagnosis 1 Osteoarthritis of ri ght midfoot (M19.071) Referral Organization [facility] Referring Provider First Name James Referring Provider Last Name Minna Referring Provider Speciality Orthopedic Surgery Referred Organization [facility] Central scheduling Procedure 1 MRI Joint Lower Ext w/o Dye (59501) General Notes Brook Joyner 11/22 01:56:10 PM > PLEASE CALL PATIENT TO SCHEDULE, Roselyn Cotter 12/15/2024 08:45:19 AM > APPROVED Auth #[id number], Valid 12/18/2024 - 01/17/2025, auth scanned in, faxed to Adelina [place] Referral Priority Routine Reason MCP HUMANA............RIGHT MIDFOOT TARSOMETATARSAL JOINT ARTHRODESIS FIRST/SECOND/THIRD Davey Batista 03/01/2025 07:30:25 >Cpt codes 94364, and 99369 x 2 Diagnosis 1 Osteoarthritis of ri ght midfoot (M19.071) Referral Organization [facility] Referring Provider First Name James Referring Provider Last Name Minna Referring Provider Speciality Orthopedic Surgery Referred Organization [facility] ospital Surgery Scheduling Referred Address [address] [facility],[address], Procedure 1 Arthrodesis, midtars al or tarsometatarsal, single joint (18408) Procedure 2 Arthrodesis, midtars al or tarsometatarsal, multiple or transverse (01961) General Notes Sherry Bermudez 03:12:00 PM >, Roselyn Cotter 02/28/2025 03:18:03 PM > req codes, Cotter Roselyn 03/01/2025 07:45:07 AM >Davey Batista 03/01/2025 07:30:25 >Cpt codes 59444, and 88855 x 2, Cotter Roselyn 03/01/2025 08:02:53 AM > pending on Availity. , Certification Number [id number], Cyndee Roselyn 03/01/2025 11:52:54 AM > per VM from Tomer mohan [facility], they need to know if this is going to be done open or arthoscopic. After speaking with Sherry, I called him back, lmv stating it will be done open and why., Roselyn Cotter 03/02/2025 11:56:58 AM > APPROVED auth #[id number], Valid 03/07/2025 - 03/22/2025, auth scanned in, faxed to [facility] Referral Priority Stat Medications Medication SIG (Take, Route, Frequency, Duration) Notes Start Date End Date Status acetaminophen-hydrocodone 325 mg-5 mg 1 tab(s) orally every 6 hours for 7 days As needed 5Activecyclobenzaprine 10 mg1 tab(s) orally 3 times a day, as needed for muscle spasms for 20 days/5ActivelosartanActive ibuprofen 800 mg1 tab(s) orally 3 times a day for 30 days5Activeaspirin 325 mg1 tab(s) orally once a day for 14 day(s)5ActivecelecoxibActive atorvastatinActiveacetaminophen-hydrocodone 325 mg-5 mg1 tab(s) orally every 6 hours, as needed for pain for 7 days/5Active Social History Tobacco Use: Social History Observation Description Date Details (start date - stop date) Current Smoker NA - NA AUDIT-C (Standard) Question Answer Notes Did you have a drink containing alcohol in the p ast year? Yes How often did you have six or more drinks on one occasion in the past year? Declined to specify (0 point)How many drinks did you have on a typical day when you were drinking in the past year?Declined to specify (0 point)How often did you have a drink containing alcohol in the past year?Declined to specify (0 point)Gpjfen7IumzvcnnyixzgfNwypoutsFvawygi Control (Standard) Question Answer Notes Tobacco use: Current smoker Problems Problem Type SNOMED Code ICD Code Onset Dates Problem Status W/U Status Risk Notes Problem Pain in right foot (813003061319760) Righ t foot pain (M79.671) PvokxacxndesvrvNqvnyhz85204319272489231Wxhlv rotator cuff tendinitis (M75.81) ActiveconfirmedProblemLocalized, primary osteoarthritis of the pelvic region and thigh (981856573)Primary osteoarthritis of left hip (M16.12)Activeconfirmed Sodivnp013918620Qkifilev of left artificial hip joint (Z96.642)Activeconfirmed Tkaalkh8377796310214201Lxxkkbo osteoarthritis of right foot (M19.071)Active qslgoonztHauuqck635058694Zdlyminxe for other orthopedic aftercare (Z47.89)Active confirmedProblemTendonitis of right shoulder (6948334433500557)Right shoulder tendonitis (M77.8)GptaceqshudnuxqTenmqhz334955517Xqatyvfgwevgck of right midfoot (M19.071)Activeconfirmed Vital Signs Height 5'10 in 11/14/2024 Jeipwe857 lbs11/14/2024BMI31.56011/14/2024 Encounters Encounter Location Date Provider Diagnosis [facility] [address] 06/07/2025 James Buitrago Encounter for other orthopedic aftercare Z47.89 ; Primary osteoarthritis of right foot M19.071 and 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 [place] [address] 07/04/2024 Evans Foster Aftercare following joint replacement surgery Z47.1 and Presence of left artificial hip joint Z96.642 [facility] [address] 08/01/2024 Evans Akersns Aftercare following joint replacement surgery Z47.1 and Presence of left artificial hip joint Z96.642 [facility] [address] [place] [address] 11/14/2024 Evans Foster Right rotator cuff tendinitis M75.81 and Right foot pain M79.671 [facility] [address] [place] [address] 11/20/2024 James Buitrago Metatarsal stress fracture of left foot M84.375A and Right foot pain M79.671 [facility] [address] [place] [address] 12/14/2024 Vijaya Del Real 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 [facility] [address] [place] [address] 01/11/2025 Vijaya Del Real Primary osteoarthrit is of right foot M19.071 [facility] [address] [place], [place] [id number] 03/07/2025 James Buitrago 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 [facility] [address] [place] [address] 03/07/2025 James Buitrago Primary osteoarthrit is of right foot M19.071 [facility] [address] [place] [address] 03/15/2025 Jean Ritter Encounter for other orthopedic aftercare Z47.89 [facility] [address] [place] [address] 03/29/2025 Jean Ritter Encounter for other orthopedic aftercare Z47.89 [facility] [address] [place] [address] 04/19/2025 Vijaya Del Real Encounter for other orthopedic aftercare Z47.89 [facility] [address] [place] [address] 05/10/2025 Vijaya Del Real Encounter for other orthopedic aftercare Z47.89 [facility] [address] [place] [address] 06/26/2024 Evans Foster Aftercare following joint replacement surgery Z47.1 and Presence of left artificial hip joint Z96.642 [facility] [address] [place] [address] 06/28/2024 Evans Foster [facility] [address] [place] [address]/[place] [address] [place] [address] 01/18/2025[place] [address] [place] [address]/[place] [address] [place] [address]/James Allen for other orthopedic aftercare Z47.89[place] [address] [place] [address]/Vijaya Alejandra for other orthopedic aftercare Z47.89 [place] [address] [place] [address]/ James Allen for other orthopedic aftercare Z47.89[place] [address] [place] [address]/James Allen for other orthopedic aftercare Z47.89[facility] [address] [place] [address]/12/2024Logcarly Valenzuela for other orthopedic aftercare Z47.89[place] [address] [place] [address]/06/2025Logcarly Rieman[facility] [address] [place] [address]/07/2025James Allen for other orthopedic aftercare Z47.89[place] [address] [place] [address]/Jean Valenzuela for other orthopedic aftercare Z47.89 [place] [address] [place] [address]/ Vijaya ElwoodEncounter for other orthopedic aftercare Z47.89[facility] [place] [address] [place] [address]/09/2024Jean Valenzuela for other orthopedic aftercare Z47.89[place] [place] [address] [place] [address]/04/2025James Montoyaounter for other orthopedic aftercare Z47.89[place] [place] [address] [place] [address]/James Jamesoner for other orthopedic aftercare Z47.89[place] [address] [place] [address] 05/15/2025James Jamesoner for other orthopedic aftercare Z47.89 [place] [address] [place] [address]/ James Allen for other orthopedic aftercare Z47.89[place] [address] [place] [address]/02/2025James Jamesoner for other orthopedic aftercare Z47.89[place] [address] [place] [address]/Vijaya Alejandra for other orthopedic aftercare Z47.89[place] [address] [place] [address]/James Jamesoner for other orthopedic aftercare Z47.89[place] [address] [place] [address]/[facility]ry oste[facility] of right foot M19.071 Assessments Encounter Date Diagnosis (ICD Code) Assessment Notes Treatment Notes Treatment Clinical Notes Section Notes 11/20/2024 Metatarsal stress fracture of le ft foot (ICD-10 - M84.375A) Right midfoot osteoarthritis Lesser metatarsal stress fracture 12/14/2024Osteoarthritis of right midfoot (ICD-10 - M19.071)01/11/2025Primary osteoarthritis of right foot (ICD-10 - M19.071)03/07/2025Encounter for other orthopedic aftercare (ICD-10 - Z47.89)03/07/2025Osteoarthritis of right midfoot (ICD-10 - M19.071)03/07/2025Primary osteoarthritis of right foot (ICD-10 - M19.071)03/07/2025Encounter for other orthopedic aftercare (ICD-10 - Z47.89) 03/13/2025Encounter for other orthopedic aftercare (ICD-10 - Z47.89)03/15/2025 Encounter for other orthopedic aftercare (ICD-10 - Z47.89)03/19/2025Encounter for other orthopedic aftercare (ICD-10 - Z47.89)03/27/2025Encounter for other orthopedic aftercare (ICD-10 - Z47.89)03/29/2025Encounter for other orthopedic aftercare (ICD-10 - Z47.89)04/03/2025Encounter for other orthopedic aftercare (ICD-10 - Z47.89)04/10/2025Encounter for other orthopedic aftercare (ICD-10 - Z47.89)04/17/2025Encounter for other orthopedic aftercare (ICD-10 - Z47.89) 04/19/2025Encounter for other orthopedic aftercare (ICD-10 - Z47.89)04/24/2025 Encounter for other orthopedic aftercare (ICD-10 - Z47.89)05/01/2025Encounter for other orthopedic aftercare (ICD-10 - Z47.89)05/08/2025Encounter for other orthopedic aftercare (ICD-10 - Z47.89)05/10/2025Encounter for other orthopedic aftercare (ICD-10 - Z47.89)05/15/2025Encounter for other orthopedic aftercare (ICD-10 - Z47.89)05/22/2025Encounter for other orthopedic aftercare (ICD-10 - Z47.89)05/29/2025Encounter for other orthopedic aftercare (ICD-10 - Z47.89) 06/05/2025Encounter for other orthopedic aftercare (ICD-10 - Z47.89)06/07/2025 Primary osteoarthritis of right foot (ICD-10 - M19.071)Status post right midfoot nlifvq5306/07/2025Encounter for other orthopedic aftercare (ICD-10 - Z47.89)Status post right midfoot nuytaz3306/26/2024ftercare following joint replacement surgery (ICD-10 - Z47.1)4Presence of left artificial hip joint (ICD-10 - Z96.642)07/04/2024ftercare following joint replacement surgery (ICD-10 - Z47.1) left total hip hsrcilaowby58/10/2024ftercare following joint replacement surgery (ICD-10 - Z47.1)left total hip llbjpvnifpa34/25/2025Right rotator cuff tendinitis (ICD-10 - M75.81) 1 tendinitis right shoulder 2 degenerative changes right foot 06/12/2025Encounter for other orthopedic aftercare (ICD-10 - Z47.89)06/19/2025 Primary osteoarthritis of right foot (ICD-10 - M19.071)11/20/2024Right foot pain (ICD-10 - M79.671) Right midfoot osteoarthritis Lesser metatarsal stress fracture 4Presence of left artificial hip joint (ICD-10 - Z96.642)left total hip rcptesdrbbc81/25/2025Right foot pain (ICD-10 - M79.671) 1 tendinitis right shoulder 2 degenerative changes right foot 4Presence of left artificial hip joint (ICD-10 - Z96.642)left total hip kgciypxkstd14/16/2025Osteoarthritis of right midfoot (ICD-10 - M19.071)Status post right midfoot kvyxff4806/07/2025Other Patient examined and evaluated Interval x-rays obtained reviewed in detail Patient was provided updated refill Flexeril will start physical therapy follow- up in 2 months Status post right midfoot dhfeej3407/04/2024Otherpatient's goals slowly advance his activities. He was told to soak in water over the wound. Return in the office in 3-4 weeks for follow-up with repeat x-ray. He is asked to call. He has any problemswith wound healing.left total hip qowxtpdeleb83/10/2024Otherfindings were discussed with the patient. We'll have him advance activities as tolerated. Return inthe office one year postop.left total hip vfwihtunimy24/25/2025Other Findings were discussed with the patient. He will be referred to Dr. Buitrago for further evaluationand treatment of his right foot. Right shoulder was injected with dexamethasone. Will see him back in the office as needed. 1 tendinitis right shoulder 2 degenerative changes right foot 11/20/2024Other Patient examined and evaluated Previous x-rays dated 11/14/2024 reviewed in detail discussed at length Patient will be started on oral prednisone given a prescription for an offloading fracture boot. Patient was also provided a handout for a carbon fiber plate patient will be scheduled for an MRI of the right forefoot based on persistent symptoms and follow-up with us in the [place] office x 3 weeks. Right midfoot osteoarthritis Lesser metatarsal stress fracture 12/14/2024OtherPatient was seen and evaluated. Based on lack of improvement with conservative treatments I would like to extend this MRI to include the right ankle and hindfoot distribution. Patient will stop Celebrex and will be given a prescription for ibuprofen 800 mg 3 times a day to use as needed. I did advise him to get back into the offloading fracture boot. Will see him back in the office after the MRI is yyzjyrtpm43/22/2025OtherPatient was seen and evaluated. Patient will be scheduled for surgical intervention. Patient will follow back up with us appropriately after surgery.03/07/2025OtherPatient was seen and evaluated. Patient will be scheduled for surgical intervention. Patient will fo llow back up with us appropriately after surgery.03/15/2025OtherPatient was seen and evaluated. Surgical incision appears well-maintained. Stitches are kept in place. Patient was placed to a nonweightbearing below-knee cast. No medication needed. Patient was instructed he needs to try and remain as nonweightbearing as possible and if he is going to do any weightbearing at his heel weight only. Patient will follow back up with us again in 2 weeks for reevaluation and updated x-rays.03/29/2025OtherPatient was seen and evaluated. Patient doing well from prior midfoot arthrodesis. Patient converted to nonweightbearing fracture boot today. Stitches were removed in office. Patient cleared to startshowering tomorrow. No soaking it at this time. Patient to remain nonweightbearing in fracture boot. Flexeril was refilled for patient. Patient will follow back up with us again in 3 weeks for reevaluation and updated foot x-rays.04/19/2025 OtherPatient was seen and evaluated. I did advise that the patient should stay consistent with the offloading fracture boot for ambulation and to avoid any barefoot walking. Patient may do some heel basedwalking in the home but really needs to have the boot on. He was given refill for [place]. Patient was also advised to obtain and use graded compression socks. Will see him back in the office in 3 weeks for reevaluation and x-rays05/10/2025OtherPatient was seen and evaluated. Patient may begin to transition from the boot into a shoe with carbon fiber plate. He was given handout to obtain graded compression socks as well as advised to avoid barefoot walking. Will see him back in the office in 5 weeks for reevaluation Plan Of Treatment Pending Test Test Name Order Date MRI : Foot W/O Contrast Right - 74358 Crutches OTS 01/11/2025 Crutches OTS 03/07/2025 CBC with diff, BMP, EKG 03/07/2025 CBC with diff, BMP, EKG 01/11/2025 Surgery Scheduling 02/28/2025 SMP - Work Slip 04/03/2025 MRI RIGHT ANKLE W/O CONTRAST 12/14/2024 NTH - Foot, right 3v WB - 83459 04/19/20 25 NTH - Foot, right 3v WB - 64937 05/10/20 25 NTH - Foot, right 3v WB - 25669 06/07/20 25 NTH - PT Evaluate and Treat x 6 weeks NTH - Walking Boot OTS 03/29/2025 Knee scooter/walker - use for up to 3 mo nths- Dispense one 01/11/2025 Knee scooter/walker - use for up to 3 mo nths- Dispense one 03/07/2025 NTH - Foot, right 3v WB - 94583 03/29/20 25 Next Appt Details Provider Name:James peralta, 08/08/2025 03:30:00 PM, [address] [facility] [place], [address], Insurance Providers Payer Name Payer Address Payer Phone Subscriber Number Group Number Insured Name Patient Relationship to Insured Coverage Start Date Coverage End Date Medicaid [employer] [place] [address] [address] [place] [address] [id number] Christina LORA - patient is the insured Medications Administered Medication Instructions Date of Administration Dosage Notes BUPIVACAINE .5 eMoqgmavdghvdoh13/25/20252 rRfkerjjsgx56/25/20251.5 mL Medical (General) History Medical History History ICD Code Heart Attack Heart problems:High Blood PressureDepressionAnxietySurgical History Surgery Date(Month/Year) Right foot 2nd, 3rd TMT jnt fusion, exos tectomy 03/07/2025 Left total hip arthroplasty 06/19/2024 Heart stent 07/2011
--- OUTSIDE RECORDS SUMMARY | 2025-06-20 09:26 | XMS_ITS | CCD ---
Author Organization [facility] Care Team Providers Care Exchange Teller Name Role Phone HEMANTH ROBIN Unavailable Unavailable PROVIDER, UNKNOWN Admitting Unavailable RICKI SHAY Attending Unavailable PROVIDER, UNKNOWN Admitting Unavailable PROVIDER, UNKNOWN Attending Unavailable REQUEST, DR NONE LISTED Primary Care Unavaila josué RIVERA, DR CAPPS Attending Unavailable NICOLE, DR CAPPS Consulting Unavailable NICOLE, DR CAPPS Admitting Unavailable Daisy Hand Consulting Unavailable ISADORA CARD, KIARA Attending Unavailable Augustine CARD, Harpreet Kline Primary Care Provider [phone] Augustine CARD, Harpreet Kline Primary Care Provider [phone] JOANA DONOVAN Attending Unavailable PCP, NOT IN SYSTEM Primary Care Unavailable AUGUSTINE, HARPREET S Primary Care Unavailable ORTIZ ANG Attending Unavailable ORTIZ ANG Attending Unavailable ORTIZ ANG Attending Unavailable AugustineHarpreet vela MD Primary Care Unavailab bassam Buitrago DPM, Chip Blake Attending Unava ilable Vijaya Del Real Consulting Unavailable Harpreet Bradshaw MD Primary Care Unavailab bassam Buitrago DPM, Chip Blake Attending Unava ilable AUGUSTINE, HARPREETFLORIDA KLINE Referring Unavailable AUGUSTINE, HARPREET KLINE Primary Care Unavailable EVANS FOSTER Referring Unavailable AUGUSTINE, HARPREET KLINE Primary Care Unavailable AUGUSTINE, HARPREET KLINE Referring Unavailable AUGUSTINE, HARPREET KLINE Primary Care Unavailable AUGUSTINE, HARPREET KLINE Referring Unavailable AUGUSTINE, HARPREET KLINE Primary Care Unavailable ANNE JAMES Referring Unavailable AUGUSTINE, HARPREET KLINE Primary Care Unavailable EVANS FOSTER Referring Unavailable AUGUSTINE, HARPREET KLINE Primary Care Unavailable AUGUSTINE, HARPREET KLINE Primary Care Unavailable AUGUSTINE, HARPREET KLINE Referring Unavailable VIJAYA DEL REAL Referring Unavailable AUGUSTINE, HARPREET KLINE Primary Care Unavailable CHIP BUITRAGO Attending Unavailable CHIP BUITRAGO Referring Unavailable AUGUSTINE, HARPREETFLORIDA KLINE Primary Care Unavailable MALIHA, VIJAYA L Referring Unavailable AUGUSTINE, HARPREET KLINE Primary Care Unavailable AUGUSTINE, HARPREET KLINE Referring Unavailable AUGUSTINE, HARPREET KLINE Primary Care Unavailable AUGUSTINE, HARPREET KLINE Referring Unavailable AUGUSTINE, HARPREET KLINE Primary Care Unavailable BANDAR, EVANS E Admitting Unavailable BANDAR, EVANS E Attending Unavailable BANDAR, EVANS E Admitting Unavailable BANDAR, EVANS E Attending Unavailable AUGUSTINE, HARPREET KLINE Primary Care Unavailable PAULA JACKSON Consulting Unavailable GREENBERG, DAMIEN A Admitting Unavailable GREENBERG, DAMIEN A Attending Unavailable AUGUSTINE, HARPREET KLINE Primary Care Unavailable AUGUSTINE, HARPREET KLINE Attending Unavailable AUGUSTINE, HARPREET KLINE Referring Unavailable AUGUSTINE, HARPREET KLINE Primary Care Unavailable AUGUSTINE, HARPREET KLINE Attending Unavailable MALIHA, VIJAYA L Referring Unavailable AUGUSTINE, HARPREET KLINE Primary Care Unavailable Rivera CARD, Rosanne Mejias Primary Care Provider PAO MILLER Attending Unavailable AUGUSTINE, HARPREET Ordonez Referring Unavailable Allergies Allergy ClassificationReported Allergen(s)Allergy TypeDate of OnsetReaction(s) Facility (13 sources)Lisinopril; Translations: [lisinopril]Drug Bhddkux89-72-7969SauqhGawMountain States Health Alliance Work Phone: Medications Current Medications MedicationDrug Class(es)DatesSig (Normalized)Sig (Original)acetaminophen 325 mg / HYDROcodone bitartrate 5 mg oral tablet (2 sources)Opioid AgonistStart: 34-14-9017pdul 1 tablet by mouth every four hours as needed for painHYDROcodone-acetaminophen (NORCO) 5-325 MG per tablet Take 1 tablet by mouth every 4 hours as needed for Pain. 04/17/2025 ActiveStart: 06-19-2024 End: tablet, Oral, EVERY 6 HOURS PRN, Starting on Wed06/19/24 at 1642, Until Wed06/20/24 at 0807, Pain Severe (7-10), Maximum dose of acetaminophen is 4000 mg from all sources in 24 hours.acetaminophen 325 mg / oxyCODONE hydrochloride 5 mg oral tablet (2 sources)Opioid AgonistStart: 06-20-2024 End: 65-76-2968ksjWFLPKK-acetaminophen (PERCOCET) 5-325 MG per tablet Indications: Status post total replacement of left hip Take 1-2 tablets by mouth every 6 hours as needed for Pain for up to 7 days. Max Daily Amount: 8 tablets 40 tablet 06/20/2024 06/27/2024 ActiveStart: 78-03-7940ofeMENIUM-acetaminophen (PERCOCET) 5-325 MG per tablet 1 tabletatorvastatin 20 mg oral tablet (16 sources)HMG-CoA Reductase InhibitorStart: 10-18-2024 End: 61-05-8186dhvk 1 tablet by mouth once dailyatorvastatin (Lipitor) 20 MG tablet Take 20 mg by mouth Daily 01/03/2025 07/02/2025 ActiveStart: 04-13-2024 End: 86-66-9281kdlt 1 tablet by mouth once dailyatorvastatin (LIPITOR) 20 MG tablet Indications: History of NC (myocardial infarction) Take 1 tablet by mouth daily 90 tablet 06/21/2024 ActivebusPIRone hydrochloride 5 mg oral tablet (4 sources)Start: 01-25-2025 End: 61-33-7259aaxu 1 tablet by mouth three times dailybusPIRone (BUSPAR) 5 MG tablet Indications: Anxiety Take 1 tablet by mouth 3 times daily 90 tablet 0 01/25/2025 02/24/2025 ActiveStart: 12-14-2024 End: 56-54-0048ripm 1 tablet by mouth three times dailybusPIRone (BUSPAR) 5 MG tablet Indications: Anxiety Take 1 tablet by mouth 3 times daily 90 tablet 0 12/14/2024 01/13/2025 Activecalcium chloride 0.0014 meq/ml / potassium chloride 0.004 meq/ml / sodium chloride 0.103 meq/ml / sodium lactate 0.028 meq/ml injectable solution (2 sources)Start: 66-29-7008OarncVWCmea, at 100 mL/hr, CONTINUOUS, Starting on Wed10/31/24 at 1030, Pre-op (day of surgery)Start: 56-19-7736GvbrvABUhpz, at 80 mL/hr, CONTINUOUS, Starting on Wed06/19/24 at 1700, Saline Lock IV with adequate oral intake., Post-opcelecoxib 100 mg oral capsule (11 sources)Nonsteroidal Anti-inflammatory DrugStart: 83-73-9417dxre 1 capsule by mouth twice dailycelecoxib (CELEBREX) 100 MG capsule Indications: Arthritis of left hip Take 1 capsule by mouth 2 times daily 60 capsule 10/18/2024 Active Start: 06-19-2024 End: 41-50-7649iefj 1 dose by mouth kdtr882 mg, Oral, ONCE, 1 dose, On Wed06/19/24 at 0930, Give in pre-opStart: 04-13-2024 End: 30-63-4454dxxw 1 capsule by mouth twice dailycelecoxib (CELEBREX) 100 MG capsule Indications: Arthritis of left hip Take 1 capsule by mouth 2 times daily 60 capsule 04/13/2024 06/19/2024 Discontinued (LIST CLEANUP)cyclobenzaprine hydrochloride 10 mg oral tablet (5 sources)Muscle RelaxantStart: 42-11-2581iremisyjvfrhwok (Flexeril) 10 MG tablet 03/12/2023 Activedoxazosin 2 mg oral tablet (4 sources)alpha-Adrenergic BlockerStart: 24-50-6047shgbrqmgl (Cardura) 2 MG tablet 03/12/2023 Active2 ml droperidol 2.5 mg/ml injection (1 source)Dopamine-2 Receptor AntagonistStart: 10-31-2024 End: ml fentaNYL 0.05 mg/ml injection (2 sources)Opioid AgonistStart: 38-30-0676Qirpg: 10-13-0411kygktHMRHNDidlglyzz 12.5 mg / losartan potassium 100 mg oral tablet (15 sources)Thiazide Diuretic, Angiotensin 2 Receptor BlockerStart: 09-13-2024 End: 07-78-9073gwbr 1 tablet by mouth once dailylosartan-hydroCHLOROthiazide (Hyzaar) 100-12.5 MG tablet Take 1 tablet by mouth Daily 09/13/2024 09/02/2025 ActiveStart: 05-31-2024 End: 10-61-2125cxtd 1 tablet by mouth once dailylosartan-hydroCHLOROthiazide (HYZAAR) 100-12.5 MG per tablet Indications: Essential hypertension , History of NC (myocardial infarction) Take 1 tablet by mouth daily 90 tablet 05/31/2024 08/29/2024 ActiveLosartan (1 source)Angiotensin 2 Receptor BlockerStart: 87-52-6258kaafpvii (COZAAR) tablet 100 mgnaloxone 0.4 mg in 10 mL sodium chloride syringe (1 source)Start: 57-06-9566virrftnnz 5 mg oral tablet (1 source)take 1 tablet by mouth once dailynebivolol (BYSTOLIC) 5 MG tablet Take 1 tablet by mouth daily Sfvcfq39 hr nicotine 0.583 mg/hr transdermal system (1 source)Cholinergic Nicotinic AgonistStart: 59-54-5170vgfxz 1 dose transdermal route once daily at bedtime1 patch, TransDERmal, Administer over 24 Hours, DAILY, First dose on Wed06/19/24 at 2030, Apply new patch to nonhairy, clean, dry skin on the upper body or upper outer arm. Rotate patch sites. Notify pharmacy if patient or provider prefers patch to be removed at bedtime and replaced in the morning. Hazardous Medication -- Refer to facility policy for handling and disposal.omeprazole 20 mg delayed release oral capsule (16 sources)Proton Pump InhibitorStart: 57-04-3970fdvt 1 capsule by mouth once dailyomeprazole (PRILOSEC) 20 MG delayed release capsule Take 1 capsule by mouth Daily 90 capsule 1 01/03/2025 ActiveStart: 66-63-0645kwth 1 capsule by mouth once dailyomeprazole (PRILOSEC) 20 MG delayed release capsule Take 1 capsule by mouth Daily 90 capsule 10/18/2024 ActiveStart: 21-87-7222zzog 1 capsule by mouth once dailyomeprazole (PRILOSEC) 20 MG delayed release capsule Take 1 capsule by mouth Daily 30 capsule 09/13/2024 ActiveStart: 90-85-9604dhnd 1 capsule by mouth once daily before breakfastomeprazole (PRILOSEC) 20 MG delayed release capsule Take 1 capsule by mouth every morning (before breakfast) 30 capsule 05/31/2024 Activetake 1 capsule by mouth in the morningomeprazole (PriLOSEC) [address] capsule Take 40 mg by mouth in the morning. Activeondansetron 4 mg disintegrating oral tablet (7 sources)Serotonin-3 Receptor AntagonistStart: 35-58-1884ijqg 1 tablet by mouth three times daily as needed for nauseaondansetron (ZOFRAN-ODT) 4 MG disintegrating tablet Indications: Nausea , Abdominal pain, unspecified abdominal location Take 1 tablet by mouth 3 times daily as needed for Nausea or Vomiting 21 tablet 04/19/2025 ActiveStart: 42-41-5765nlrd 1 tablet by mouth three times daily as needed for nauseaondansetron (ZOFRAN-ODT) 4 MG disintegrating tablet Indications: Nausea , Abdominal pain, unspecified abdominal location Take 1 tablet by mouth 3 times daily as needed for Nausea or Vomiting 21 tablet 12/14/2024 ActiveStart: 87-08-5923fkzm 1 tablet by mouth three times daily as needed for nauseaondansetron (ZOFRAN-ODT) 4 MG disintegrating tablet Indications: Nausea , Abdominal pain, unspecified abdominal location Take 1 tablet by mouth 3 times daily as needed for Nausea or Vomiting 21 tablet 11/07/2024 ActiveStart: 10-31-2024 End: 52-11-6831eelRYWGVV (1 source)Opioid AgonistStart: 10-31-2024 End: 66-08-8383aadPVTYPA (ROXICODONE) immediate release tablet 5 mgpredniSONE 50 mg oral tablet (4 sources)Start: 68-95-9457rpaf 1 tablet by mouth in the morningpredniSONE (Deltasone) 50 MG tablet Take 50 mg by mouth in the morning. 09/21/2022 Active rivaroxaban 10 mg oral tablet (1 source)Factor Xa InhibitorStart: 06-20-2024 End: 79-87-8167dfwu 1 tablet by mouth once daily at breakfastrivaroxaban (XARELTO) 10 MG TABS tablet Indications: Status post total replacement of left hip Take1 tablet by mouth daily (with breakfast) for 12 days 12 tablet 06/20/2024 07/02/2024 Active5 ml sodium chloride 9 mg/ml injection (6 sources)Start: 80-71-8878Odklh: 65-90-1205Scyjo: 77-14-8907Vxqbq: 06-19-2024 Start: 06-19-2024 Completed/Discontinued Medications MedicationDrug Class(es)DatesSig (Normalized)Sig (Original)acetaminophen 325 mg oral tablet (3 sources)Start: 64-47-7602222 mg, Oral, EVERY 6 HOURS, First dose on Wed06/19/24 at 1800, Until Discontinued, Maximum dose of acetaminophen is 4000 mg from all sources in 24 hours., Post-opStart: 06-19-2024 End: 16-04-4472evfn 1 dose by mouth once, then take 4000 mg by mouth every twenty-four ahwpu993 mg, Oral, ONCE, 1 dose, On Wed06/19/24 at 0930, Maximum dose of acetaminophen is 4000 mg from all sources in 24 hours., Give in pre-op amLODIPine 10 mg oral tablet (2 sources)Dihydropyridine Calcium Channel BlockerStart: 08-11-2024 End: 06-54-3597sulw 1 tablet by mouth once dailyamLODIPine (NORVASC) 10 MG tablet Take 1 tablet by mouth daily 08/11/2024 10/23/2024 Discontinued (Therapy completed)aspirin 81 mg chewable tablet (13 sources)Platelet Aggregation Inhibitor, Nonsteroidal Anti-inflammatory Drug Start: 98-82-8850ytas 81 mg by mouth once daily81 mg, Oral, DAILY, First dose on Wed06/20/24 at 0900, Until DiscontinuedceFAZolin (ANCEF) 2,000 mg in sterile water 20 mL IV syringe (1 source)Start: 06-19-2024 End: 42,000 mg, IntraVENous, EVERY 8 HOURS, 2 doses, First dose on Wed06/19/24 at 2100, Last dose on Wed06/20/24 at 0500, Antimicrobial Indications: Surgical Prophylaxis, Administer over 5 mins. Reconstitute 2 g vial with 20 mL Sterile Water. Withdraw entire contents., Post-op0.3 ml enoxaparin sodium 100 mg/ml prefilled syringe (1 source)Low Molecular Weight HeparinStart: 35-32-4200bdzkkc 30 mg by subcutaneous injection twice daily30 mg, SubCUTAneous, 2 TIMES DAILY, First dose on Wed06/20/24 at 0900, Until Discontinued, Indication of Use: Prophylaxis- DVT/PE, Other, Other Enoxaparin Indication: post-op, Administer by deep subCU TAneous injection with pt lying down. Alternate injection sites on abdominal wall. Do not rub site after injection. Check with provider prior to any invasive procedure., Post-op0.5 ml HYDROmorphone hydrochloride 1 mg/ml prefilled syringe (1 source)Opioid AgonistStart: 06-19-2024 End: 55-04-5799qviv 0.5 mg by mouth every three hours as needed for pain0.5 mg, IntraVENous, EVERY 3 HOURS PRN, Starting on Wed06/19/24 at 1642, Until Wed06/20/24 at 0807, Pain Severe (7-10), If oral and IV narcotics ordered, use oral first and only use IV if oral is ineffective or cannot take oral. Do Not give oral and IV within 1 hour of each other unless specifically ordered., Post-op24 hr metoprolol succinate 25 mg extended release oral tablet (1 source)beta-Adrenergic BlockerStart: 22-53-301241 mg, Oral, DAILY, First dose on Wed06/20/24 at 0900, Until Discontinued, Substituted for nebivolol (BYSTOLIC)pantoprazole 40 mg delayed release oral tablet (1 source)Proton Pump InhibitorStart: 37-29-613253 mg, Oral, DAILY BEFORE BREAKFAST, First dose (after last modification) on Wed06/19/24 at 2330, Until Discontinued, Do not crush or break. Substituted for Omeprazole (PRILOSEC). tranexamic acid 650 mg oral tablet (3 sources)Antifibrinolytic AgentStart: 06-20-2024 End: 75-13-6495bruf 1 dose by mouth once1,300 mg, Oral, ONCE, 1 dose, On Wed06/20/24 at 0000, Do not crush or break. to be given 12 hours after initial pre- op doseStart: 06-19-2024 End: 76-16-8823rrrc 1 dose by mouth once1,300 mg, Oral, ONCE, 1 dose, On Wed06/19/24 at 1800, Do not crush or break. Give dose 6 hours after initial pre-op doseStart: 06-19-2024 End: 50-43-5437bqil 1 dose by mouth once1,300 mg, Oral, ONCE, 1 dose, On Wed06/19/24 at 0930, Do not crush or break., Give in pre-op Problems Active Problems Problem ClassificationProblemDateDocumented DateEpisodic/ChronicAcute myocardial infarction (4 sources)Myocardial infarction; Translations: [Non-ST elevation (NSTEMI) myocardial infarction]Onset: 895465-03-3104ShrffiyHvkwnge-oktltls disorders (4 sources)Alcohol abuse, in remission; Translations: [Alcohol abuse, in remission]Onset: 378534-82-5217UwxyfigIoarglno atherosclerosis and other heart disease (3 sources)Old myocardial infarction; Translations: [History of myocardial infarction]Onset: 530680-34-8683GezaragCoueeiquhw and other anemia (1 source)Other hemoglobinopathies; Translations: [Other hemoglobinopathies] Onset: 55-73-7757DlhefmlLtrvkzhkg of lipid metabolism (4 sources)Mixed hyperlipidemia; Translations: [Pure hypercholesterolemia, unspecified]Onset: 08-31-1154QentvwpLcqkinptv hypertension (17 sources)Hypertensive disorder; Translations: [Essential (primary) hypertension]Onset: 538048-41-6206DchluvdPeqtxzyp Injury - Adverse effects of medical drugs (1 source)Adverse effect of ctaqwnfodep-owlpdaqcgf-soumqg inhibitors, initial encounter; Translations: [Adverse effect of uzekkxoiwzl-vaiawgjlbl-rsztmx inhibitors, initial encounter]Onset: 29-00-8632Jyyvnowa of lower limb (1 source)Nondisplaced fracture of cuboid bone of right foot, initial encounter for closed fracture; Translations: [Nondisplaced fracture of cuboid bone of right foot, initial encounter for closed fracture]Onset: 77-71-2911Qrvuyrcs Immunizations and screening for infectious disease (5 sources)Exposure to sexually transmissible disorder; Translations: [Contact with and (suspected) exposure to infections with a predominantly sexual mode of transmission]Onset: 251433-36-4225RwebgzpkZnuw disorders (4 sources)Depressive disorder; Translations: [Depressive disorder]Onset: 952895-04-4467HdqzgxrGcyquupsmwz chest pain (5 sources)Chest pain, unspecified; Translations: [Chest pain, unspecified] Onset: 99-13-6144PbmyhtofPhje wounds of extremities (1 source)Laceration without foreign body of left forearm, initial encounter; Translations: [Laceration without foreign body of left forearm, initial encounter]Onset: 02-00-5911EjmrpertIdemzhltcgowtn (8 sources)Osteoarthritis of midfoot; Translations: [Primary osteoarthritis, right ankle and foot]Onset: 814719-99-6395VwcaqidQdjxk aftercare (1 source)extermination inspector (current) use of aspirin; Translations: [FDC CURRENT USE OF ASPIRIN]Onset: 99-36-3868PjutpaucGgahc and unspecified benign neoplasm (1 source)Melanocytic nevus of trunk; Translations: [Melanocytic nevi of trunk] 10-15-9482AtjxyzgpIejuu circulatory disease (4 sources)History of angioplasty; Translations: [Peripheral vascular angioplasty status with implants and grafts]Onset: hronic Other connective tissue disease (14 sources)History of total hip arthroplasty; Translations: [Presence of left artificial hip joint]Onset: 457093-93-8657LxpqawgBptiz connective tissue disease (1 source)Presence of left artificial hip joint; Translations: [Presence of left artificial hip joint]Onset: 69-65-8121FrqcfmzWdxea connective tissue disease (1 source)Tendinitis of right rotator cuff; Translations: [Other shoulder lesions, right shoulder]11-05-0065IaexjhuiQoqsr connective tissue disease (4 sources)Pain in right foot; Translations: [Pain in right foot]Onset: 484811-41-0429XoxhbiohEiivq connective tissue disease (2 sources)Foot painOnset: 37-08-2753JjiymwjjIckfx lower respiratory disease (1 source)CoughOnset: 38-53-9947VqaobbbdPhsyu nervous system disorders (1 source)Other chronic pain; Translations: [Other chronic pain]Onset: 45-71-8151WcywbuxQiqho non-traumatic joint disorders (1 source)Arthritis of right edvxh20-13-7025MgqmmlwMzkqo non-traumatic joint disorders (1 source)Disorder of shoulder; Translations: [Other specified joint disorders, right shoulder]43-30-9863UztmesdgZddjc non-traumatic joint disorders (1 source)Chronic pain of right upper limb; Translations: [Pain in right shoulder]83-05-5289AwxoszzyPcuuv screening for suspected conditions (not mental disorders or infectious disease) (20 sources)Patient encounter status; Translations: [Encounter for screening for malignant neoplasm of colon]Onset: 09-26-2024 Resolved: 616756-70-0635PlojfewrIhswk skin disorders (1 source)Skin lesion; Translations: [Disorder of the skin and subcutaneous tissue, unspecified]39-68-7276YiqupiupUkydl skin disorders (1 source)Disorder of the skin and subcutaneous tissue, unspecified; Translations: [Disorder of the skin and subcutaneous tissue, unspecified]Onset: 62-75-9783WxgtttzlHdejk skin disorders (1 source)Bacterial folliculitis; Translations: [Other specified follicular disorders]64-98-3020KjtvchooDagtd skin disorders (1 source)Seborrheic keratosis; Translations: [Other seborrheic keratosis] 94-38-8803ZebsbtqmHsqtb skin disorders (1 source)Inflamed seborrheic keratosis; Translations: [Inflamed seborrheic keratosis]93-47-3968SkqkbfekOmrglaranlu; intervertebral disc disorders; other back problems (1 source)Dorsalgia, unspecified; Translations: [DORSALGIA UNSPECIFIED]Onset: 54-29-0173CksiornvNyleymgim-related disorders (9 sources)Nicotine dependence, unspecified, uncomplicated; Translations: [Other psychoactive substance abuse,in remission]Onset: hronic Unclassified (2 sources)New Patient; Translations: [New Patient]Onset: 87-56-5335Fofng infection (2 sources)Verruca vulgaris; Translations: [Viral wart, unspecified]Onset: 168482-88-7510Hadnamub Past or Other Problems Problem ClassificationProblemDateDocumented DateEpisodic/ChronicDiabetes mellitus without complication (2 sources)Hyperglycemia; Translations: [Hyperglycemia, unspecified]Onset: 696147-64-1977QenjzysaJexucp and vomiting (3 sources)Nausea; Translations: [Nausea]Onset: 313121-55-3067Bfjrwzcz Other connective tissue disease (1 source)Pain in right foot; Translations: [Pain in right foot]Onset: 45-89-0798EjkypmntSdbwu connective tissue disease (3 sources)Other shoulder lesions, right shoulder; Translations: [Other shoulder lesions, right shoulder]Onset: 43-92-6872TnzopxpvQmdjf ear and sense organ disorders (4 sources)Bilateral tinnitus; Translations: [Tinnitus, bilateral]Onset: 774159-57-3162VfvyefevDrunf lower respiratory disease (1 source)Cough; Translations: [Cough]Onset: 76-27-2057JitbcbcxQmlxw non- traumatic joint disorders (3 sources)Other specified joint disorders, right shoulder; Translations: [Other specified joint disorders, right shoulder]Onset: 72-92-9628CacgbtkbEnjkv non- traumatic joint disorders (3 sources)Pain in right shoulder; Translations: [Pain in right shoulder]Onset: 79-46-0394Kavgohek Results Test NameValueInterpretationReference RangeFacilityCryotherapy, skin lesionon 21-68-6305ONBX HealthcareChlamydia/GC DNA, Uron 84-26-9363Sqphcrjtk Probe, Ur NegativeNormalNEGMercy [place] HospitalComment on above:Result Comment: CHLAMYDIA TRACHOMATIS DNA not detected by nucleic acid amplification. This test is intended for medical purposes only and is not valid for the evaluation of suspected sexual abuse or for other forensic purposes. In certain contexts, culture may be required to meet applicable laws and regulations for diagnosis of C. trachomatis and N. gonorrhoeae infections. Per 2014 CDC recommendations, this test does not include confirmation of positive results by an alternative nucleic acid target.Performed By: #### LIPR #### [facility] [address] [place], [place] [id number] Director Internal Control: Pio Kelly Probe, UrNegativeNormalNEGMerThe Hospital of Central ConnecticutComment on above:Result Comment: NEISSERIA GONORRHOEAE DNA not detected by nucleic acid amplification. This test is intended for medical purposes only and is not valid for the evaluation of suspected sexual abuse or for other forensic purposes. In certain contexts, culture may be required to meet applicable laws and regulations for diagnosis of C. trachomatis and N. gonorrhoeae infections. Per 2014 CDC recommendations, this test does not include confirmation of positive results by an alternative nucleic acid target.Performed By: #### LIPR #### [facility] [address] [place], [place] [id number] Director Internal Control: RIAZ Kelly.Pall confirm,TPPAon 04-20-2025T.Pall confirm,TPPANon-ReactiveNormalNRCrystal Clinic Orthopedic Center HospitalComment on above:Performed By: #### BMP, CDP #### [facility] [address] [place] [address] [place] [address] Director Internal Control: Shamar Stephenson MDHIV Ag/Abon 58-05-1864MLN Ag/AbNon-ReactiveNormal NRCrystal Clinic Orthopedic Center HospitalComment on above:Result Comment: No laboratory evidence of HIV infection. If acute HIV infection is suspected, consider testing for HIV-1 RNA.Performed By: #### TREP, PHEP, HIVCMB, TPPA #### [address] [id number] Director Internal Control: MARIA R Kelly Screenon 33-45-3603SMI 1+2 Ab+HIV1 p24 Ag IA QlNon-ReactiveNONREACTIVECarilion Franklin Memorial HospitalComcorewell health butterworth hospital on above:No laboratory evidence of HIV infection. If acute HIV infection is suspected, consider testing for HIV-1 RNA. [facility] 05-73-9686Drk A Ab,IgM Non-ReactiveNormalGrant Hospital HospitalComment on above:Performed By: #### TREP, PHEP, HIVCMB, TPPA #### [address] [address] Director Internal Control: Duncan Kelly Core Ab,IgMNon-ReactiveNormalGrant Hospital HospitalComment on above:Performed By: #### TREP, PHEP, HIVCMB, TPPA #### [address] [address] Director Internal Control: Duncan Kelly B Surf AgNon-ReactiveNormalGrant Hospital HospitalComment on above:Performed By: #### TREP, PHEP, HIVCMB, TPPA #### [facility] [address] [place] [address] Director Internal Control: Duncan Kelly AbNon-ReactiveParma Community General Hospital on above:Result Comment: The hepatitis C procedure used in our laboratory is a Chemiluminescent test specific for three recombinant HCV antigens. A negative anti-HCV result indicates that the antibodies to hepatitis C virus are not present at this time. Individuals with reactive anti-HCV should be considered infected and infectious until proven otherwise. Confirmation of all equivocal or reactive results is recommended by ordering HCV RNA by PCR.Performed By: #### TREP, PHEP, HIVCMB, TPPA #### [facility] [address] [place] [address] [id number] Director Internal Control: Niels Kellytis Panel, Acuteon [id number] IgM IA Ql Non-ReactiveNONREACTIVECarilion Franklin Memorial HospitalHBV core IgM IA QlNon-Reactive NONREACTIVECarilion Franklin Memorial HospitalHBV surface Ag IA QlNon-ReactiveNONREACTIVE [facility] HospitalHCV Ab IA QlNon-ReactiveNONREACTIVELewisGale Hospital Montgomery on above: The hepatitis C procedure used in our laboratory is a Chemiluminescent test specific for three recombinant HCV antigens. A negative anti-HCV result indicates that the antibodies to hepatitis C virus are not present at this time. Individuals with reactive anti-HCV should be considered infected and infectious until proven otherwise. Confirmation of all equivocal or reactive results is recommended by ordering HCV RNA by PCR. [facility] HospitalT. pallidum Abon 04-19-2025T. pallidum Ab IA Ql (S) Non-ReactiveNONREACTIVELewisGale Hospital Montgomery on above: T. pallidum antibodies are not detected. There is no serological evidence of infection with T. pallidum (early primary syphilis cannot be excluded). Retest in 2-4 weeks if syphilis is clinically suspect. [facility] HospitalT.pallidum Ab Screenon 04-19-2025T.pallidum Ab Screen Non-ReactiveParma Community General Hospital on above:Result Comment: T. pallidum antibodies are not detected. There is no serological evidence of infection with T. pallidum (early primary syphilis cannot be excluded). Retest in 2-4 weeks if syphilis is clinically suspect.Performed By: #### TREP, PHEP, HIVCMB, TPPA #### [facility] [place] [address] Director Internal Control: Carl Middleton MDOperative Reporton [id number] Report Indication for Surgery Right midfoot osteoarthritis (first, second, third tarsometatarsal joints) Preoperative Diagnosis Right midfoot osteoarthritis (first, second, third tarsometatarsal joints) Postoperative Diagnosis Right midfoot osteoarthritis (first, second, third tarsometatarsal joints) Operation Right first tarsometatarsal joint exostectomy Right second tarsometatarsal joint arthrodesis/fusion Right third tarsometatarsal joint arthrodesis/fusion Surgeon(s) Minna BAKER, Chip Blake (Surgeon - Primary) Glass Melt Operator Vijaya Del Real, AUTUMN, WORKERS' COMPENSATION COMMISSIONER (Cnc Mill Set Up Operator) Corky Good, PGY 2 Rocio Jaffe, CHIEF OF FIELD OPERATIONS Anesthesia General, Peripheral Nerve Block Jesús CARD, Jhoan Hernández (Mechanical Supervisor) Amanda NAVA-DYE LAB TECHNICIAN, Sandra (Provider) Zoran NAVA-AUTUMN, Kenn Jenkins (Provider) Delmar NAVA-DYE LAB TECHNICIAN, Amaury Smith (Provider) Estimated Blood Loss Tourniquet +10 cc Urine Output Not applicable Findings Chronic midfoot osteoarthritis Specimen(s) None Complications None Technique Materials: 3.5 mm headed cannulated compression screw x 2 ([employer] medical pulse), 20 x 15 mm nitinol staple x 2, 5 cc matrix bone putty Indications for procedure: Patient is a 54-year-old male who is referred by Dr. Foster for persistent dorsal midfoot pain. Interval imaging as well as clinical exam depicted end-stage midfoot osteoarthritis particular over the 2nd and 3rd tarsometatarsal joints with moderate heterotrophic bone formation. Patient today and has attempted shoe and activity modification topical and oral analgesics wit h little to no improvement. Based on nature location of deformity patient elects to proceed with surgical invention in the form of a right midfoot arthrodesis. All questions concerns regarding perioperative management including benefits risk complications and alternatives procedure were discussed in detail. Patient was seen preoperatively, consent was reviewed and signed operative limb marked. Patient wastaken to the OR placed in supine position administered general anesthetic. Operative extremity was prepped using chlorhexidine surgical scrub draped in sterile fashion. Patient received a preoperative popliteal block as well as prophylactic antibiotic. Procedures in detail: Right first tarsometatarsal joint exostectomy After performing a formal timeout attention was then directed to the right lower extremity. An Esmarch was used to exsanguinate the limb followed by elevation of thigh tourniquet to 250 mmHg. Live fluoroscopy was then brought into the room to allow for incision placement with use of a Lenore periosteal elevator. A curvilinear incision was made approximately 6 to 8 cm in length over distribution ofthe second tarsometatarsal joint. This allowed for thorough evaluation of both the first, second, third tarsometatarsal joints. Nirschl dissection was carried out full-thickness with a 15 scalpel blade followed by blunt dissection with Metzenbaum scissors, electrocautery Bovie. Intrinsic muscular group as well as neurovascular bundle was identified and retracted laterally gaining access to the mid tarsometatarsal joints. We then incised through the dorsal based hypertrophic capsular tissue getting access to heterotrophic bone encompassing the first, second, third tarsometatarsal joints. We used a sagittal saw to resect heterotrophic bone overlying the joints in particular the first tarsometatarsal joint which was then contoured using a reciprocating rasp. Underlying articular surface appeared intact well-maintained. Right second tarsometatarsal joint arthrodesis/fusion After resection of heterotrophic bone encompassing the first tarsometatarsal joint we then directedour attention to the 2nd and 3rd tarsometatarsal joints. The second tarsometatarsal joint was then taken down using a combination of sagittal saw osteotome and mallet resecting all residual cartilagesubchondral plate and the level of intramedullary bleeding bone. Operative site was irrigated with normal sterile saline followed by use of a 2.5 mm drill bit to perforate the residual bone to inducelocalized bleeding as well as harvest of in situ autogenous bone graft. A guidepin from the 3.5 mm headed compression pulse Darco screw sent was placed in the distal dorsal to proximal plantar orientation across the arthrodesis site. This was measured drilled countersunk appropriately and filled with a 3.5 mm headed compression screw. A secondary point of fixation consisting of a bicortical 20 x 15 mm nitinol staple was placed along the dorsal lateral aspect of the fusion site confirmed on intraoperative fluoroscopy. This was drilled bicortical in nature and fixated with a forced fuse nitinolstaple. Right third tarsometatarsal joint arthrodesis/fusion Attention was then directed to the 3rd tarsometatarsal joint. The tarsometatarsal joint was then taken down using a combination of sagittal saw osteotome and mallet resecting all residual cartilage subchondral plate and the level of in (more content not included)...[facility] CenterXR OR Foot Righton [id number] OR Foot Right This report was not created by a radiologist, physician, or advanced practice provider. The details of this surgical case can be found within the surgical operative note. The surgical Operative note is located within the patient's chart. Final Signed by: Dione Genao Signed (Electronic Signature): 03/07/2025 4:16 pm Transcribed DT/TM: 03/07/2025 4:16 (If Report Is Signed, Electronically Signed in Other Vendor System)[facility]36on [id number] to OIO.[facility] HealthProgress Note-Nurseon [id number] Note-NurseMessage left with Sherry at Dr. Buitrago's office to fax H&P, consent, lab results, and clearance (patient stated during PSS Interview that Dr. Buitrago's office sent him for labs and clearance- we do not have results). Electronically signed by Brook Hernandez 03/06/25 10:53 EDT PCP clearance appointment today 03/[address] Bradshaw. PCP Office to fax results/clearance once completed. Anesthesia updated. Electronically signed by Brook Hernandez 03/06/25 11:07 EDT Clearance received, EKG and labs received. Scanned into [employer], and faxed to Dr. Buitrago's office. Message left with Dr. Buitrago's aboriginal education teacher Sherry that we received these documents- still waiting on H&P and consent. Electronically signed by Brook Hernandez 03/06/25 15:29 EDTNoKettering Health [facility]36on [id number] needs cleared for foot surgery with OIO, scheduled for 03/07/2025. He had EKG on 02/14.[facility] HealthBasic Metabolic Panelon [id number] gap [Moles/Vol]12 mmol/L9 - 16 mmol/LBon [facility] Calcium [Mass/Vol]9.1 mg/dL8.6 - 10.4 mg/dLBon SecDwellGreen HealthChloride [Moles/Vol]102 mmol/L98 - 107 mmol/LBon SecDwellGreen HealthCO2 [Moles/Vol]23 mmol/L20 - 31 mmol/LBon SecXtremIOCreatinine [Mass/Vol]1.1 mg/dL0.70 - 1.20 mg/dLBon SecDwellGreen HealthEst, Glom Filt Rate79- PINFBon SecXtremIOComment on above: These results are not intended for use in patients <18 years of age. eGFR results are calculated without a race factor using the 2020 CKD-EPI equation. Careful clinical correlation is recommended, particularly when comparing to results calculated using previous equations. The CKD-EPI equation is less accurate in patients with extremes of muscle mass, extra-renal metabolism of creatine, excessive creatine ingestion, or following therapy that affects renal tubular secretion. Glucose [Mass/Vol]126 mg/yWFxnm91 - 99 mg/dLBon [facility] Interpretation and review of laboratory resultsAbnormalBon [facility] Potassium [Moles/Vol]4.1 mmol/L3.7 - 5.3 mmol/LBon SecLat49y HealthSodium [Moles/Vol]137 mmol/L136 - 145 mmol/LBon [facility] HospitalUrea nitrogen [Mass/Vol]13 mg/dL6 - 20 mg/dLBon [facility] HospitalUrea nitrogen/Creatinine [Mass ratio]12 mg/mg9 - 20Bon [facility] HospitalBon [facility] HospitalBasic Metabolic Profon [id number] gap [Moles/Vol]12 mmol/LNormal9-16[facility] HospitalComment on above:Performed By: #### BMP, CDP #### [facility] [address] [place] [address] Dr[address] [place], [place] [id number] Director Internal Control: Shamar Stephenson MDBUN/CRE Mzfel44Jkgxcm8-25Ygmmz [facility] Comment on above:Performed By: #### BMP, CDP #### [address] [place], [place] [id number] Director Internal Control: FREDERICK Reneealcium [Mass/Vol]9.1 mg/dLNormal8.6-10.4[facility] HospitalComment on above:Performed By: #### BMP, CDP #### [address] [place], [place] [id number] Director Internal Control: FREDERICK Reneehloride [Moles/Vol]102 mmol/UWbpktd33-570AlnbtMercy Health Fairfield HospitalComment on above:Performed By: #### BMP, CDP #### [facility] [address] [place] [address] Dr. [place], [place] [id number] Director Internal Control: Shamar Stephenson MDCO2 [Moles/Vol]23 mmol/RCazuqe87-23NrfrhMercy Health Fairfield HospitalComment on above:Performed By: #### BMP, CDP #### [address] [place] [address] Director Internal Control: FREDERICK Reneereatinine [Mass/Vol]1.1 mg/dLNormal0.70-1.20[facility] HospitalComment on above:Performed By: #### SUHAIL, CDP #### [address] [place] [address] Director Internal Control: Shamar Stehpenson MDGFR/1.73 sq M.predicted among non-blacks MDRD (S/P/Bld) [Vol rate/Area]79 mL/min/{1.73_m2}Normal>60[facility] Comment on above:Result Comment: These results are not intended for use in patients <18 years of age. eGFR results are calculated without a race factor using the 2020 CKD-EPI equation. Careful clinical correlation is recommended, particularly when comparing to results calculated using previous equations. The CKD-EPI equation is less accurate in patients with extremes of muscle mass, extra-renal metabolism of creatine, excessive creatine ingestion, or following therapy that affects renal tubular secretion.Performed By: #### SUHAIL, CDP #### [address] [place] [id number] Director Internal Control: Shamar Stephenson MDGlucose [Mass/Vol]126 mg/cREjfa96-66JitalKettering Health – Soin Medical CenterComment on above:Performed By: #### SUHAIL, CDP #### [address] [place] [address] Director Internal Control: Shamar Stephenson MDPotassium [Moles/Vol]4.1 mmol/LNormal3.7-5.3MCrystal Clinic Orthopedic Center HospitalComment on above:Performed By: #### SUHAIL, CDP #### [address] [place] [address] Director Internal Control: Shamar Stephenson MDSodium [Moles/Vol]137 mmol/VBdnnnp125-603NzooxMercy Health Fairfield HospitalComment on above:Performed By: #### BMP, CDP #### [address] [place] [address] Director Internal Control: Shamar Stephenson MDUrea nitrogen [Mass/Vol]13 mg/dLNormal6-20[facility] HospitalComment on above:Performed By: #### BMP, CDP #### [facility] [address] [place] [address] Director Internal Control: Shamar Stephenson [facility] with Auto Differentialon [id number] (Bld) [#/Vol]0.07 10*3/uLBon Secours [facility] Butler HospitalBasophils/100 WBC (Bld)1 %0 - 2 %Bon SecDoctors HospitalEosinophils (Bld) [#/Vol]0.14 10*3/uLBon Secours [facility]health [facility] Butler HospitalEosinophils/100 WBC (Bld)2 %1 - 4 %[facility] HospitalErythrocyte distribution width (RBC) [Ratio]12.4 %11.8 - 14.4 %[facility] Hematocrit (Bld) [Volume fraction]48.6 %40.7 - 50.3 %[facility] Hemoglobin (Bld) [Mass/Vol]16.5 g/dL13.0 - 17.0 g/dLBon [facility] Immature granulocytes (Bld) [#/Vol]0.08 10*3/uLBon Secours [facility]health [facility] Butler HospitalImmature granulocytes/100 WBC (Bld)1 %Bxyk8Fsr [facility] HospitalInterpretation and review of laboratory resultsAbnormalBon SecDoctors HospitalLymphocytes/100 WBC (Bld)31 %24 - 43 %[facility] HospitalLymphocytes/100 WBC (Bld)2.33 %[facility] CenterH (RBC) [Entitic mass]30.6 pg25.2 - 33.5 pgBon [facility] HospitalHC (RBC) [Mass/Vol]34 g/dL28.4 - 34.8 g/dLBon SecDoctors Hospital MCV (RBC) [Entitic vol]90.2 fL82.6 - 102.9 fLBon SecDoctors Hospital Monocytes/100 WBC (Bld)9 %3 - 12 %Bon [facility] HospitalMonocytes/100 WBC (Bld)0.68 %[facility] HospitalNeutrophils/100 WBC (Bld)56 %36 - 65 %Bon SecDoctors HospitalNucleated RBC/100 WBC (Bld) [Ratio]0 %0.0 per 100 WBCCarilion Franklin Memorial HospitalPlatelet mean volume (Bld) [Entitic vol]9.2 fL8.1 - 13.5 fL [facility] HospitalPlatelets (Bld) [#/Vol]249 10*3/uLCarilion Franklin Memorial HospitalRBC (Bld) [#/Vol]5.39 10*6/uL4.21 - 5.77 m/[facility] Segmented neutrophils/100 WBC (Bld)4.26 %[facility] HospitalWBC other (Bld) [#/Vol]7.6Bon [facility] HospitalCBC with Diffon [id number]. Basophil0.07 k/uLNormal0.00-0.20MerMercy Health Anderson Hospital HospitalComment on above:Performed By: #### SUHAIL, CDP #### [address] [place] [address] Director Internal Control: Autumn Renee.Imm.Granulocyte0.08 k/uLNormal0.00-0.30[facility] HospitalComment on above:Performed By: #### SUHAIL, CDP #### [address] [place] [address] Director Internal Control: Autumn Renee.Neutrophil (Seg)4.26 k/uLNormal1.50-8.10[facility] HospitalComment on above:Performed By: #### BMP, CDP #### [address] [place] [id number] Director Internal Control: Shamar Stephenson MDBasophils/100 WBC (Bld)1 %Normal0-2MercSelect Medical Specialty Hospital - Cincinnati HospitalComment on above:Performed By: #### BMP, CDP #### [address] [place] [id number] Director Internal Control: Shamar Stephenson MDEosinophils (Bld) [#/Vol]0.14 10*3/uLNormal 0.00-0.44[facility] HospitalComment on above:Performed By: #### BMP, CDP #### [address] [place], [place] [address] Director Internal Control: Shamar Stephenson MDEosinophils/100 WBC (Bld)2 %Normal1-4[facility] HospitalComment on above:Performed By: #### BMP, CDP #### [address] [place], [place] [address] Director Internal Control: Shamar Stephenson MDErythrocyte distribution width (RBC) [Ratio]12.4 % Vjxtie90.8-14.4[facility] HospitalComment on above:Performed By: #### SUHAIL, CDP #### [address] [place], [facility]83 Director Internal Control: Shamar Stephenson MDHematocrit (Bld) [Volume fraction]48.6 %Normal 40.7-50.3[facility] Lakeside HospitalComment on above:Performed By: #### SUHAIL, CDP #### [address] [place], [place] [address] Director Internal Control: Shamar Stephenson MDHemoglobin (Bld) [Mass/Vol]16.5 g/dLNormal 13.0-17.0[facility] HospitalComment on above:Performed By: #### BMP, CDP #### [address] [place], [place] [address] Director Internal Control: Shamar Stephenson MDImmature granulocytes/100 WBC (Bld)1 %Lhlw6IjdozCrystal Clinic Orthopedic Center HospitalComment on above:Performed By: #### BMP, CDP #### [address] [place], [facility]83 Director Internal Control: Shamar Stephenson MDLymphocytes (Bld) [#/Vol]2.33 10*3/uLNormal 1.10-3.70[facility] HospitalComment on above:Performed By: #### BMP, CDP #### [address] [place] [address] Director Internal Control: Shamar Stephenson MDLymphocytes/100 WBC (Bld)31 %Piayxw69-50Xumxp [facility] HospitalComment on above:Performed By: #### BMP, CDP #### [address] [place] [address] Director Internal Control: ESTELLE ReneeCH (RBC) [Entitic mass]30.6 kyZvvbuv12.2-33.5 [facility] HospitalComment on above:Performed By: #### BMP, CDP #### [address] [place], [place] [id number] Director Internal Control: HANNAH ReneeC (RBC) [Mass/Vol]34.0 g/lUZlelrp51.4-34.8[facility] HospitalComment on above:Performed By: #### SUHAIL, CDP #### [address] [place], [place] [id number] Director Internal Control: ESTELLE ReneeCV (RBC) [Entitic vol]90.2 lVIkhzuo73.6-102.9 [facility] HospitalComment on above:Performed By: #### BMP, CDP #### [address] [place] [address] Director Internal Control: ESTELLE Reneeonocytes (Bld) [#/Vol]0.68 10*3/uLNormal0.10-1.20 [facility] HospitalComment on above:Performed By: #### BMP, CDP #### [address] [place], [place] [id number] Director Internal Control: ESTELLE Reneeonocytes/100 WBC (Bld)9 %Normal3-12[facility] HospitalComment on above:Performed By: #### BMP, CDP #### [facility] [address] [place] [address] [place] [address] Director Internal Control: Alison Renee (Seg)56 %Abiaxb68-81Rbgen [facility] HospitalComment on above:Performed By: #### BMP, CDP #### [address] [place] [address] Director Internal Control: AMRIK Renee Automated0.0 per 100 WBCNormal0.0[facility] HospitalComment on above:Performed By: #### BMP, CDP #### [address] [place], [place] [id number] Director Internal Control: Rhona Renee mean volume (Bld) [Entitic vol]9.2 fL Normal8.1-13.5[facility] HospitalComment on above:Performed By: #### BMP, CDP #### [address] [place], [place] [id number] Director Internal Control: Mercy Renee (Bld) [#/Vol]249 10*3/gWHkvhzf679-250 [facility] HospitalComment on above:Performed By: #### SUHAIL, CDP #### [address] [place] [address] Director Internal Control: SANJEEV Renee (Bld) [#/Vol]5.39 10*6/uLNormal4.21-5.77[facility] HospitalComment on above:Performed By: #### BMP, CDP #### [address] [place] [address] Director Internal Control: JENNY Renee (Bld) [#/Vol]7.6 10*3/uLNormal3.5-11.3MCrystal Clinic Orthopedic Center HospitalComment on above:Performed By: #### BMP, CDP #### [facility] [address] [place] [address] Director Internal Control: ORESTES Renee 12 leadOrdered By: Yves De La Fuente on 02-14-2025 Atrial Kftb64OIVGmm [employer] Work Phone: P [id number] [employer] Work Phone: P-R Cilxiidd128 [employer] Work Phone: Q-T [id number] [employer] Work Phone: QRS Gftljsio04 msBon [employer] Work Phone: QTc Calculation (Bazett)432 msBon [employer] Work Phone: R Fenk1qpylkxsPofV[employer] Phone: T Kfuo79rwceljkHkcRunRev Work Phone: Ventricular Kmfi71TGPNoj [employer] Work Phone: Bon [employer] Work Phone: [phone] 12 leadon 76-89-8879Sgyprc sinus rhythm Normal ECG When compared with ECG of 30-Oct-2024 09:49, No significant change was found Confirmed by Yves De La Fuente ([id number]) on 02/14/2025 11:18:05 [facility] Yves De La Fuente MD - 02/14/2025 Normal sinus rhythm Normal ECG When compared with ECG of 30-Oct-2024 09:49, No significant change was found Confirmed by Yves De La Fuente ([id number]) on 02/14/2025 11:18:05 PM [facility] NutritionSARS/FLU A+B/RSV BY NAAT/MOLECULAR (M4RT COLLECTION TUBE)on [id number]/FLU A+B/RSV BY NAAT/MOLECULAR (M4RT COLLECTION TUBE)FLU A PCR Negative FLU B PCR Negative RSV BY PCR Negative SARS COV 2 BY PCR Not DetectedNormalNot DetectedProMedica Sutter Tracy Community HospitalComment on above:Order Comment: The Xpert Xpress SARS-CoV-2/Flu/RSV Plus test is a rapid, multiplexed real-time RT-PCR test intended for the simultaneous qualitative detection and differentiation of SARS-CoV-2, influenza A, influenza B and respiratory syncytial virus (RSV) viral RNA from individuals suspected of respiratory viral infection consistent with COVID-19 by Their healthcare provider. This test has not been validated in asymptomatic patients. The Xpert Xpress SARS-CoV-2 test is intended for use by qualified and trained operators who are performing tests using either [facility] or [employer] and is limited to laboratories that meet the CLIA requirements to perform high and moderate complexity tests. The Xpert Xpress SARS-CoV-2/Flu/RSV Plus is only for use under the Food and Drug Administration's Emergency Use Authorization. Results are for the simultaneous detection and differentiation of SARS-CoV-2, influenza A, influenza B and RSV nucleic acids in clinical specimens. SARS-CoV-2, influenza A, influenza B and RSV RNA identified by this test are generally detectable in upperrespiratory samples during the acute phase of infection. Positive results are Indicative of the presence of the identified virus, but do not rule out bacterial infection or co-infection with other pathogens not detected by this test. Clinical correlation with patient history and other diagnostic information is necessary to determine patient infection status. The agent detected may not be the definite cause of disease. Negative results do not preclude SARS-CoV-2, influenza A, influenza B and RSVinfection and should not be used as the sole basis for treatment or other patient management decisions. Negative results must be combined with clinical observations, patient history and epidemiological information. An Invalid result may occur with specimen-associated inhibition unable to be resolved with specimen repeat. Fact Sheet for Healthcare Providers: https://www.fda.gov/media/021166/download Fact Sheet for Patients: https://www.fda.gov/media/548467/downloadPerformed By: #### COVFLR #### [facility] ([facility] 15 [place] [address]. [place] [address] VIRMRI ANKLE RIGHT WO CONTRASTon 14-16-3662IAJ ANKLE RIGHT WO CONTRASTEXAM: MRI of the right Ankle without contrast. 01/03/2025 08:23:59 AM TECHNIQUE: Multiplanar multisequence MRI of the right ankle was performed without the administration of intravenous contrast. COMPARISON: None available. CLINICAL HISTORY: Osteoarthritis of right midfoot. FINDINGS: SYNDESMOTIC LIGAMENTS: Intact anterior inferior tibiofibular ligament and posterior inferior tibiofibular ligament. No significant periligamentous edema or interval widening. LATERAL COLLATERAL LIGAMENT COMPLEX: Intact anterior talofibular ligament, posterior talofibular ligament and calcaneofibular ligament. DELTOID LIGAMENT COMPLEX: Intact superficial and deep components. SINUS TARSI AND SPRING LIGAMENT: Visualized portions of the spring ligament are intact. Normal appearance of the sinus tarsi. MEDIAL TENDONS: Intact posterior tibial tendon, flexor digitorum and flexor hallucis longus tendons. LATERAL TENDONS: Intact peroneus brevis and longus tendons. ANTERIOR TENDONS: The tibialis anterior, extensor hallucis longus and extensor digitorum longus tendons are normal inposition, morphology and signal. ACHILLES TENDON: The Achilles tendon is normal in position, morphology and signal. No associated bursitis. PLANTAR FASCIA: The medial and lateral bundles of the plantar fascia are normal in morphology and signal. There is no evidence of acute plantar fasciitis or tear. No evidence of plantar fascial nodules. TARSAL TUNNEL: There are no obstructing lesions within the tarsal tunnel. BONE MARROW: No evidence of acute fracture or aggressive marrow replacing lesion. JOINT SPACES: Moderate degenerative changes of the second and third tarsometatarsal (TMT) joints. Mild fourth TMTdegenerative change. 3 mm ganglion cyst dorsal to the third TMT joint. 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 Tibiotalar cartilage is maintained. No osteochondral lesion in the talar dome. IMPRESSION: 1. 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 2. Possibility of a nonosseous calcaneonavicular coalition. 3. No ligament or tendon tear. Interpreted by: Alton Knight MD Signed by: Alton Knight MD 01/08/25 Final resultNormalMercy Lakeside HospitalUS GALLBLADDER RUQon 10-51-2469UV GALLBLADDER RUQEXAMINATION: RIGHT UPPER QUADRANT ULTRASOUND 01/03/2025 7:51 am COMPARISON: None. HISTORY: ORDERING SYSTEM PROVIDED HISTORY: Nausea TECHNOLOGIST PROVIDED HISTORY: This procedure can be scheduled via MyChart. FINDINGS: LIVER: Hepatic steatosis with focal fatty sparing regional to the gallbladder fossa. Liver 18.3 cm in length. Hepatopetal flow portal vein. BILIARY SYSTEM: Gallbladder is unremarkable without evidence of pericholecystic fluid, wall thickening or stones. Negative sonographic David's sign. Common bile duct is within normal limits measuring 2.9 mm. RIGHT KIDNEY: The right kidney is grossly unremarkable without evidence of hydronephrosis. PANCREAS: Visualized portions of the pancreas are unremarkable. OTHER: No evidence of right upper quadrant ascites. IMPRESSION: Hepatic steatosis. Interpreted by: Anthony Lora DO Signed by: Anthony Lora DO 01/04/25 Final resultNormalMercy Thuy Hardinon 98-54-3530Qcagbht steatosis. [facility] CONSOLIDATEDEXAMINATION: RIGHT UPPER QUADRANT ULTRASOUND 01/03/2025 7:51 am COMPARISON: None. HISTORY: ORDERING SYSTEM PROVIDED HISTORY: Nausea TECHNOLOGIST PROVIDED HISTORY: This procedure can be scheduled via MyChart. FINDINGS: LIVER: Hepatic steatosis with focal fatty sparing regional to the gallbladder fossa. Liver 18.3 cm in length. Hepatopetal flow portal vein. BILIARY SYSTEM: Gallbladder is unremarkable without evidence of pericholecystic fluid, wall thickening or stones. Negative sonographic David's sign. Common bile duct is within normal limits measuring 2.9 mm. RIGHT KIDNEY: The right kidney is grossly unremarkable without evidence of hydronephrosis. PANCREAS: Visualized portions of the pancreas are unremarkable. OTHER: No evidence of right upper quadrant ascites. [facility] CONSOLIDATEDRobAnthony rangel DO - 01/04/2025 EXAMINATION: RIGHT UPPER QUADRANT ULTRASOUND 01/03/2025 7:51 am COMPARISON: None. HISTORY: ORDERING SYSTEM PROVIDED HISTORY: Nausea TECHNOLOGIST PROVIDED HISTORY: This procedure can be scheduled via MyChart. FINDINGS: LIVER: Hepatic steatosis with focal fatty sparing regional to the gallbladder fossa. Liver 18.3 cm in length. Hepatopetal flow portal vein. BILIARY SYSTEM: Gallbladder is unremarkable without evidence of pericholecystic fluid, wall thickening or stones. Negative sonographic David's sign. Common bile duct is within normal limits measuring 2.9 mm. RIGHT KIDNEY: The right kidney is grossly unremarkable without evidence of hydronephrosis. PANCREAS: Visualized portions of the pancreas are unremarkable. OTHER: No evidence of right upper quadrant ascites. IMPRESSION: Hepatic steatosis. [employer] GallbladderOrdered By: Anthony Lora on 01-04-2025 [employer] Work Phone: us Gallbladderon [id number] Study observation (narrative)RunRevMRI FOOT RIGHT WO CONTRASTon 03-03-1140UBM FOOT RIGHT WO CONTRASTEXAMINATION: MRI OF THE RIGHT FOOT WITHOUT CONTRAST, 12/01/2024 1:30 pm TECHNIQUE: Multiplanar multisequence MRI of the right foot was performed without the administration of intravenous contrast. COMPARISON: None HISTORY: ORDERING SYSTEM PROVIDED HISTORY: Right foot pain TECHNOLOGIST PROVIDED HISTORY: What is the area of interest?->Hindfoot FINDINGS: LISFRANC JOINT: Visualized Lisfranc ligament is intact. No significant Lisfranc interval widening or significant periligamentous edema. BONE MARROW: No evidence of acute fracture or aggressive marrow replacing lesion. GREATER AND LESSER MTP JOINTS: No significant joint effusion or osseous erosions. No significant degenerative changes. Normal alignment. SOFT TISSUES: No significant soft tissue edema or fluid collections. TENDONS: Visualized flexor and extensor tendons are intact without tenosynovitis. IMPRESSION: Unremarkable MRI of the right foot. Given reported clinical history, consider evaluation with dedicated right ankle MRI as the hindfoot is out of field of view on this examination. Interpreted by: Jose J Campbell MD Signed by: Jose J Campbell MD 12/04/24 Final resultNormalMercy Danbury HospitalOffice Visiton 14-91-5760Rfmzxo-up visit [id number] Willie Lora 1970 M Date Provider Department Center 12/04/2024 [id number] ANG Family History Problem Relation Age of Onset Lung cancer Mother Heart attack Father Heart attack Maternal Grandmother Heart attack Paternal Grandfather Stroke Paternal Grandfather Family Status - Relation Status Age at Mother Father Maternal Grandmother Paternal Grandfather Level of Service:[address] [place] OFFICE/OUTPATIENT ESTABLISHED MOD MDM 30 MIN Reason for Visit and Comments: Coronary Artery Disease [187] Hypertension [677360] Hyperlipidemia [182]NormalMemorial Health System Selby General HospitalXR FOOT RT MIN 3 VWSon [id number] FOOT RT MIN 3 VWSXR FOOT RT MIN 3 VWS XR FOOT RT MIN 3 VWS HISTORY: right lateral distal foot pain and bruising. COMPARISON: none IMPRESSION: No unequivocal acute fracture, dislocation or malalignment. Subtle cortical irregularity proximal cuboid, possible nondisplaced fracture, correlate for localizing tenderness. Seemingly well-corticated osseous irregularity involving the proximal diaphyses fourth and fifth metatarsals, likely sequelae of remote injury. Enthesophyte base of fifth metatarsal. Plantar calcaneal enthesophyte. Well corticated osseous fragment about the navicular cuneiform articulations, seen on lateral, likely sequela of remote injury. Finalized by Tim Sutton MD on 11/09/2024 5:59 AMNormalProMedica Sutter Tracy Community HospitalColonoscopy studyon 25-74-7630RZCCJL [facility] Patient: WILLIE LORA : 1970 Account: [id number] Sex at : Male Age: 54 Years Procedure: Colonoscopy Date: 10/31/2024 Attending Physician: Damien Greenberg Referring MD: HARPREET BRADSHAW Additional Staff: KENN CHAPA, Studio Control Operator; Anna Tapia RN Indications: - Screening for colorectal malignant neoplasm - This is the patient's first colonoscopy Medications: - See the Anesthesia note for documentation of the administered medications Complications: - No immediate complications. Estimated Blood Loss: - Estimated blood loss: None. Procedure: - The PCF H190DL #: [id number] was introduced through the anus and advanced to the cecum, identified by appendiceal orifice and ileocecal valve. - The colonoscopy was performed without difficulty. - The patient tolerated the procedure well. - The quality of the bowel preparation was evaluated using the BBPS (Davenport Bowel Preparation Scale) with scores of: Left Colon = 3 (entire mucosa seen well with no residual staining, small fragments of stool or opaque liquid), Transverse Colon = 2 (minor amount of residual staining, small fragments of stool and/or opaque liquid, but mucosa seen well) and Right Colon = 2 (minor amount of residual staining, small fragments of stool and/or opaque liquid, but mucosa seen well). The total BBPS score equals 7. The quality of the bowel preparation was good. - The ileocecal valve, appendiceal orifice, and rectum were photographed. Findings: - The colon (entire examined portion) appeared normal. - The exam was otherwise without abnormality on direct and retroflexion views. Impression: - The entire examined colon is normal. - The examination was otherwise normal on direct and retroflexion views. - No specimens collected. Recommendation: - Repeat colonoscopy in 10 years for surveillance. Procedure Code(s): - G0121, Colorectal cancer screening; colonoscopy on individual not meeting criteria for high risk Diagnosis Code(s): - Z12.11, Encounter for screening for malignant neoplasm of colon CPT(R) - 2022 copyright [employer]. All Rights Reserved. The CPT codes, CCI edits and ICD codes generated are intended as suggestions and were generated based on input data. These codes are preliminary and upon welder gas tungsten arc review may be revised to meet current compliance and payer requirements. The provider is responsible for the final determination of appropriate codes, and modifiers. Damien Greenberg MD This document has been electronically signed. Note Initiated:10/31/2024 Note Completed:10/31/2024 11:52 Damien Mckeon MD - 10/31/2024 [facility] Patient: WILLIE LORA : 1970 Account: [id number] Sex at : Male Age: 54 Years Procedure: Colonoscopy Date: 10/31/2024 Attending Physician: Damien Greenberg Referring MD: HARPREET BRADSHAW Additional Staff: KENN CHAPA, Studio Control Operator; Anna Tapia RN Indications: - Screening for colorectal malignant neoplasm - This is the patient's first colonoscopy Medications: - See the Anesthesia note for documentation of the administered medications Complications: - No immediate complications. Estimated Blood Loss: - Estimated blood loss: None. Procedure: - The PCF H190DL SN#: [id number] was introduced through the anus and advanced to the cecum, identified by appendiceal orifice and ileocecal valve. - The colonoscopy was performed without difficulty. - The patient tolerated the procedure well. - The quality of the bowel preparation was evaluated using the BBPS (Davenport Bowel Preparation Scale) with scores of: Left Colon = 3 (entire mucosa seen well with no residual staining, small fragments of stool or opaque liquid), Transverse Colon = 2 (minor amount of residual staining, small fragments of stool and/or opaque liquid, but mucosa seen well) and Right Colon = 2 (minor amount of residual staining, small fragments of stool and/or opaque liquid, but mucosa seen well). The total BBPS score equals 7. The quality of the bowel preparation was good. - The ileocecal valve, appendiceal orifice, and rectum were photographed. Findings: - The colon (entire examined portion) appeared normal. - The exam was otherwise without abnormality on direct and retroflexion views. Impression: - The entire examined colon is normal. - The examination was otherwise normal on direct and retroflexion views. - No specimens collected. Recommendation: - Repeat colonoscopy in 10 years for surveillance. Procedure Code(s): - G0121, Colorectal cancer screening; colonoscopy on individual not meeting criteria for high risk Diagnosis Code(s): - Z12.11, Encounter for screening for malignant neoplasm of colon CPT(R) - 2022 copyright [employer]. All Rights Reserved. The CPT codes, CCI edits and ICD codes generated are intended as suggestions and were generated based on input data. These codes are preliminary and upon welder gas tungsten arc review may be revised to meet current compliance and payer requirements. The provider is responsible for the final determination of appropriate codes, and modifiers. Damien Greenberg MD This document has been electronically signed. Note Initiated:10/31/2024 Note Completed:10/31/2024 11:52 AM Bon Brighter.comEKG 12 LeadOrdered By: Yves De La Fuente on 58-85-6957Uyhgkv Msbn24VNQOps [employer] Phone: P [id number] [employer] Phone: P-R [id number] [employer] Phone: Q-T [id number] [employer] Phone: QRS [id number] [place] Phone: QTc Calculation (Brianne)[phone] [place] Phone: R [id number] [employer] Work Phone: T [id number] [employer] Work Phone: Ventricular [id number] [employer] Work Phone: Bon [employer] Work Phone: [phone] 12 Leadon 58-07-1662Himipj sinus rhythm Normal ECG No previous ECGs available Confirmed by YVES DE LA FUENTE ([id number]) on 10/31/2024 12:20:42 [facility] Yves De La Fuente MD - 10/31/2024 Normal sinus rhythm Normal ECG No previous ECGs available Confirmed by YVES DE LA FUENTE ([id number]) on 10/31/2024 12:20:42 AM [facility] [employer]XR SHOULDER RIGHT (MIN 2 VIEWS)on 12-20-6463XH SHOULDER RIGHT (MIN 2 VIEWS)EXAMINATION: TWO XRAY VIEWS OF THE RIGHT SHOULDER 10/24/2024 11:56 am COMPARISON: None. HISTORY: ORDERING SYSTEM PROVIDED HISTORY: Impingement of right shoulder TECHNOLOGIST PROVIDED HISTORY: chronic shoulder pain FINDINGS: There is an accessory ossicle adjacent to the acromion. There is no evidence for any fracture. There is no evidence of arthritis. 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 Interpreted by: Anders Luis MD Signed by: Anders Luis MD 10/24/24 Final resultNormalMercy Rockville General Hospital Shoulder - right 2 Viewson 10-24-2024 Accessory ossicle adjacent to the acromion. [facility] CONSOLIDATEDEXAMINATION: TWO XRAY VIEWS OF THE RIGHT SHOULDER 10/24/2024 11:56 am COMPARISON: None. HISTORY: ORDERING SYSTEM PROVIDED HISTORY: Impingement of right shoulder TECHNOLOGIST PROVIDED HISTORY: chronic shoulder pain FINDINGS: There is an accessory ossicle adjacent to the acromion. There is no evidence for any fracture. There is no evidence of arthritis. [facility] Anders Duarte MD - 10/24/2024 EXAMINATION: TWO XRAY VIEWS OF THE RIGHT SHOULDER 10/24/2024 11:56 am COMPARISON: None. HISTORY: ORDERING SYSTEM PROVIDED HISTORY: Impingement of right shoulder TECHNOLOGIST PROVIDED HISTORY: chronic shoulder pain FINDINGS: There is an accessory ossicle adjacent to the acromion. There is no evidence for any fracture. There is no evidence of arthritis. 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 [facility] HospitalRadiology Study observation (narrative)[facility] HospitalXR Shoulder - right 2 ViewsOrdered By: Anders Luis on 70-02-0320Oay [facility] Work Phone: Comp Metabolic Profon 13-60-5971Qcfwaea [Mass/Vol]4.2 g/dLNormal3.5-5.2Mercy Danbury HospitalComment on above:Performed By: #### CP #### [address] [place] [id number] Director Internal Control: Shamar Stephenson MD #### GLYHGB #### [address] [address] Director Internal Control: Carl Middleton MDAlbumin/Glob Ratio1.4Rzdtus3.0-2.5[facility] HospitalComment on above:Performed By: #### CP #### [address] [place] [id number] Director Internal Control: Shamar Stephenson MD #### GLYHGB #### [address] [address] Director Internal Control: Cathi Kellyline Phos88 U/RIcpgga15-863VwhnmMercy Health Fairfield HospitalComment on above:Performed By: #### CP #### [address] [place], [place] [address]83 Director Internal Control: Shamar Stephenson MD #### GLYHGB #### [address] [address] Director Internal Control: Carl Middleton MDALT [Catalytic activity/Vol]43 U/CXqbmwd04-15 [facility] HospitalComment on above:Performed By: #### CP #### [facility] [address] [place] [address] [place] [address] Director Internal Control: Shamar Stephenson MD #### GLYHGB #### [place] [address] [place] [address] Director Internal Control: Carl Middleton MDAnion gap [Moles/Vol]13 mmol/LNormal9-16[facility] HospitalComment on above:Performed By: #### CP #### [address] [place] [address] Director Internal Control: Shamar Stephenson MD #### GLYHGB #### [address] [address] Director Internal Control: Carl Middleton MDAST [Catalytic activity/Vol]32 U/TAxibqr49-43 [facility] HospitalComment on above:Performed By: #### CP #### [address] [place] [address] Director Internal Control: Shamar Stephenson MD #### GLYHGB #### [address] [address] Director Internal Control: Carl Middleton MDBilirubin [Mass/Vol]0.4 mg/dLNormal0.00-1.20 [facility] HospitalComment on above:Performed By: #### CP #### [address] [place] [address] Director Internal Control: Shamar Stephenson MD #### GLYHGB #### [address] [address] Director Internal Control: Carl Middleton MDBUN/CRE Chpij91Eaixyp4-62Vzdye [facility] Comment on above:Performed By: #### CP #### [address] [place], [place] [id number] Director Internal Control: Shamar Stephenson MD #### GLYHGB #### [address] [address] Director Internal Control: FREDERICK Kellyalcium [Mass/Vol]9.1 mg/dLNormal8.6-10.4[facility] HospitalComment on above:Performed By: #### CP #### [address] [place], [place] [id number] Director Internal Control: Shamar Stephenson MD #### GLYHGB #### [address] [id number] Director Internal Control: Carl Middleton MDChloride [Moles/Vol]99 mmol/EZyoxqz82-021Qfxlk [facility] HospitalComment on above:Performed By: #### CP #### [address] [place], [place] 7[address]1383 Director Internal Control: Shamar Stephenson MD #### GLYHGB #### [address] [address] Director Internal Control: Carl Middleton MDCO2 [Moles/Vol]26 mmol/MFjmitw06-87Bookv [facility] HospitalComment on above:Performed By: #### CP #### [address] [place] [address] Director Internal Control: Shamar Stephenson MD #### GLYHGB #### [address] [address] Director Internal Control: Carl Middleton MDCreatinine [Mass/Vol]1.0 mg/dLNormal0.70-1.20 [facility] HospitalComment on above:Performed By: #### CP #### [address] [place], [place] [id number] Director Internal Control: Shamar Stephenson MD #### GLYHGB #### [address] [id number] Director Internal Control: Carl Middleton MDGFR/1.73 sq M.predicted among non-blacks MDRD (S/P/Bld) [Vol rate/Area]mL/min/{1.73_m2}Normal>60[facility] HospitalComment on above:Result Comment: These results are not intended for use in patients <18 years of age. eGFR results are calculated without a race factor using the 2020 CKD-EPI equation. Careful clinical correlation is recommended, particularly when comparing to results calculated using previous equations. The CKD-EPI equation is less accurate in patients with extremes of muscle mass, extra-renal metabolism of creatine, excessive creatine ingestion, or following therapy that affects renal tubular secretion.Performed By: #### CP #### [address] [place] [address] Director Internal Control: Shamar Stephenson MD #### GLYHGB #### [address] [id number] Director Internal Control: Carl Middleton MDGlucose [Mass/Vol]98 mg/xKVackcy53-54XhfhhKettering Health – Soin Medical CenterComment on above:Performed By: #### CP #### [address] [place] [id number] Director Internal Control: Shamar Stephenson MD #### GLYHGB #### [address] [address] Director Internal Control: KEVIN Kellyotassium [Moles/Vol]3.9 mmol/LNormal3.7-5.3 [facility] HospitalComcorewell health butterworth hospital on above:Performed By: #### CP #### [address] [place] [address] Director Internal Control: Shamar Stephenson MD #### GLYHGB #### [address] [id number] Director Internal Control: KEVIN Kellyrotein [Mass/Vol]7.2 g/dLNormal6.6-8.7[facility] HospitalComment on above:Performed By: #### CP #### [address] [place], [place] [address]38183 Director Internal Control: Shamar Stephenson MD #### GLYHGB #### [address] [place], [place] [phone] Director Internal Control: CRISTY Kellyodium [Moles/Vol]138 mmol/NLmxgmx902-505LwmwrMercy Health Fairfield HospitalComment on above:Performed By: #### CP #### [address] [place] [id number] Director Internal Control: Shamar Stephenson MD #### GLYHGB #### [address] [address] Director Internal Control: Carl Middleton MDUrea nitrogen [Mass/Vol]13 mg/dLNormal6-20[facility] HospitalComment on above:Performed By: #### CP #### [address] [place], [place] [address]2983 Director Internal Control: Shamar Stephenson MD #### GLYHGB #### [address] [place] [address] Director Internal Control: Carl Middleton [facility] EDMONDomprehensive Metabolic Panelon 09-26-2024 Albumin [Mass/Vol]4.2 g/dL3.5 - 5.2 g/dLBon [facility] HospitalAlbumin/Globulin [Mass ratio]1.4 {ratio}1.0 - 2.5Bon [facility] HospitalALP [Catalytic activity/Vol]88 U/L40 - 129 U/LBon [facility] HealthALT [Catalytic activity/Vol]43 U/L10 - 50 U/LBon [facility] HospitalAnion gap [Moles/Vol]13 mmol/L9 - 16 mmol/LBon [facility] Centery HealthAST [Catalytic activity/Vol]32 U/L10 - 50 U/LBon [facility] Centery HealthBilirubin [Mass/Vol]0.4 mg/dL0.00 - 1.20 mg/dL [facility] HealthCalcium [Mass/Vol]9.1 mg/dL8.6 - 10.4 mg/dLBon Secours [facility] Centery HealthChloride [Moles/Vol]99 mmol/L98 - 107 mmol/LBon [facility] Health CO2 [Moles/Vol]26 mmol/L20 - 31 mmol/LBon [facility] HealthCreatinine [Mass/Vol]1.0 mg/dL0.70 - 1.20 mg/dLBon [facility] HealthEst, Glom Filt Rate- PINFBon [facility] HospitalComment on above: These results are not intended for use in patients <18 years of age. eGFR results are calculated without a race factor using the 2020 CKD-EPI equation. Careful clinical correlation is recommended, particularly when comparing to results calculated using previous equations. The CKD-EPI equation is less accurate in patients with extremes of muscle mass, extra-renal metabolism of creatine, excessive creatine ingestion, or following therapy that affects renal tubular secretion. Glucose [Mass/Vol]98 mg/dL74 - 99 mg/dLBon [facility] HealthPotassium [Moles/Vol]3.9 mmol/L3.7 - 5.3 mmol/LBon [facility] HealthProtein [Mass/Vol] 7.2 g/dL6.6 - 8.7 g/dLBon [facility] HealthSodium [Moles/Vol]138 mmol/L136 - 145 mmol/LBon SecTulane[facility] HealthUrea nitrogen [Mass/Vol]13 mg/dL6 - 20 mg/dL [facility] HealthUrea nitrogen/Creatinine [Mass ratio]13 mg/mg9 - 20Bon [facility] HealthBon [facility] HealthHemoglobin A1Con [id number] glucose Estimated from glycated hemoglobin (Bld) [Mass/Vol]128 mg/dLBon [facility])ours [facility] Butler HospitalComment on above:The ADA and AACC recommend providing the estimated average glucose result to permit better patient understanding of their HBA1c result. HbA1c (Bld) [Mass fraction]6.1 %High4.0 - 6.0 %[facility] Interpretation and review of laboratory resultsAbnormalBon [facility] HospitalGlucose [Mass/Vol]128 mg/dLNoBrown Memorial Hospital Comment on above:Result Comment: The ADA and AACC recommend providing the estimated average glucose result to permit better patient understanding of their HBA1c result.Performed By: #### CP #### [facility] [address] [place] [address] Director Internal Control: Shamar Stephenson MD #### GLYHGB #### [employer] [address] [place] [address] Director Internal Control: Carl Middleton MDHbA1c (Bld) [Mass fraction]6.1 %High4.0-6.0[facility] HospitalComment on above:Performed By: #### CP #### [facility] [address] [place] [address] Director Internal Control: Shamar Stephenson MD #### GLYHGB #### [employer] [address] [place] [address] Director Internal Control: Carl Middleton MDLipid Panelon [id number] [Mass/Vol] 169 mg/dL0 - 199 mg/dLBon [facility] HospitalComment on above: Cholesterol Guidelines: <200 Desirable 200-240 Borderline >240 Undesirable Cholesterol in HDL [Mass/Vol]33 mg/dLLow40 - PINF mg/dLBon [facility] Comment on above: HDL Guidelines: <40 Undesirable 40-59 Borderline >59 Desirable Cholesterol in LDL [Mass/Vol]77 mg/dL0 - 100 mg/dLBon [facility] Comment on above: LDL Guidelines: <100 Desirable 100-129 Near to/above Desirable 130-159 Borderline >159 Undesirable Direct (measured) LDL and calculated LDL are not interchangeable tests. Cholesterol in VLDL [Mass/Vol]59 mg/dLHigh1 - 30 mg/dLBon [facility] Cholesterol.total/Cholesterol in HDL [Mass ratio]5.1 {ratio}[facility] HospitalInterpretation and review of laboratory resultsAbnormalBon [facility] HospitalTriglyceride [Mass/Vol]296 mg/dLHighNINF - 150 mg/dLBon [facility] HospitalComcorewell health butterworth hospital on above: Triglyceride Guidelines: <150 Desirable 150-199 Borderline 200-499 High >499 Very high Based on AHA Guidelines for fasting triglyceride, May 2012. [facility] HospitalLipid Profileon [id number] [Mass/Vol]169 mg/dLNormal0-199[facility] HospitalComcorewell health butterworth hospital on above:Result Comment: Cholesterol Guidelines: <200 Desirable 200-240 Borderline >240 UndesirablePerformed By: #### LIPR #### [employer] [address] [place] [address] Director Internal Control: FREDERICK Kellyholesterol in HDL [Mass/Vol]33 mg/dLLow>40[facility] HospitalComcorewell health butterworth hospital on above:Result Comment: HDL Guidelines: <40 Undesirable 40-59 Borderline >59 DesirablePerformed By: #### LIPR #### [facility] [address] [place] [id number] Director Internal Control: FREDERICK Kellyholesterol in LDL [Mass/Vol]77 mg/dLNormal0-100 [facility] on above:Result Comment: LDL Guidelines: <100 Desirable 100-129 Near to/above Desirable 130-159 Borderline >159 Undesirable Direct (measured) LDL and calculated LDL are not interchangeable tests.Performed By: #### LIPR #### [facility] [address] [place] [address] Director Internal Control: FREDERICK Kellyholesterol in VLDL [Mass/Vol]59 mg/dLHigh1-30 [facility] on above:Performed By: #### LIPR #### [facility] [address] [place] [address] Director Internal Control: Bassam Kellystserafin.total/Cholesterol in HDL [Mass ratio]5.1 {ratio}NormalMercy Lakeside HospitalComment on above:Performed By: #### LIPR #### [facility] [address] [place], [place] [id number] Director Internal Control: Carl Middleton MDTriglyceride [Mass/Vol]296 mg/dLHigh<150Mer[facility]bury HospitalComment on above:Result Comment: Triglyceride Guidelines: <150 Desirable 150-199 Borderline 200-499 High >499 Very high Based on AHA Guidelines for fasting triglyceride, May 2012.Performed By: #### LIPR #### [facility] [address] [place] [address] Director Internal Control: Carl Middleton MDOffice Visiton [id number]-up visit [id number] Willie Lora 1970 M Date Provider Department Center 08/11/2024 [id number]-ULYKCBORTIZ ANG [facility] Bautista [facility] Family History Problem Relation Age of Onset Lung cancer Mother Heart attack Father Heart attack Maternal Grandmother Heart attack Paternal Grandfather Stroke Paternal Grandfather Family Status - Relation Status Age at Mother Father Maternal Grandmother Paternal Grandfather Level of Service:[address] [place] OFFICE/OUTPATIENT ESTABLISHED MOD [facility] 30 [facility] HospitalHemoglobin and hematocrit, bloodon 06-20-2024 Hematocrit (Bld) [Volume fraction]37.3 %Low40.7 - 50.3 %[facility] Hemoglobin (Bld) [Mass/Vol]12.8 g/dLLow13.0 - 17.0 g/dLBon [facility] Interpretation and review of laboratory resultsAbnormalRussell County Medical CenterHgb/Hcton [id number] (Bld) [Volume fraction] 37.3 %Low40.7-50.3[facility] HospitalComment on above:Performed By: #### BMP, CDP #### [facility] [address] [place] [address] Director Internal Control: Shamar Stephenson MDHemoglobin (Bld) [Mass/Vol]12.8 g/dLLow13.0-17.0 [facility] HospitalComment on above:Performed By: #### BMP, CDP #### [address] [place] [address] Director Internal Control: Shamar Stephenson MDType + Screenon [id number] + ScreenSample Expiration 06/22/2024,2359 Arm Band Number [id number] ABO/Rh(D) B POSITIVE Antibody Screen POSITIVE Antibody Ident COLD NON-SPECIFIC AUTOAGGLUTININ Unit Number [id number] Blood Component Type Leukocyte Reduced Red Cell Unit Division 00 Status of Unit REL FROM ALLOC Transfusion Status OK TO TRANSFUSE Crossmatch Result COMPATIBLENormWVUMedicine Barnesville HospitalComment on above: Performed By: #### SUHAIL, CDP #### [address] [place] [address] Director Internal Control: LIUDMILA Renee HIP LEFT (1 VIEW)on [id number] HIP LEFT (1 VIEW)Radiology exam is complete. No Radiologist dictation. Please follow up with ordering provider. Final resultNormWVUMedicine Barnesville HospitalXR Hip - left Single viewon 06-19-2024 Radiology exam is complete. No Radiologist dictation. Please follow up with ordering provider. [facility] RIS CONSOLIDATEDType + Screenon [id number] + ScreenSample Expiration 05/13/2024,2359 Arm Band Number [id number] ABO/Rh(D) B POSITIVE Antibody Screen POSITIVE Antibody Ident COLD NON-SPECIFIC AUTOAGGLUTININ ALMAZ, Polyspecific NEGATIVE Antigen Type,Patient Positive for C Antigen Negative for E Antigen Positive for c Antigen Positive for e Antigen Negative for [place] Antigen Positive for Dalton(A) Antigen Positive for Dalton(B) Antigen Positive for Ca(A) Antigen Positive for Ca(B) Antigen Positive for M Antigen Positive for N Antigen Positive for S Antigen Positive for s Antigen Negative for Bobby(A) Antigen Positive for Bobby(B) AntigenOhio Valley Surgical HospitalComment on above: Performed By: #### TYS #### [address] [place] [id number] Director Internal Control: Shamar Stephenson MD36on [id number] Shannen Peters MA Please inform patient that his stress test is negative for ischemia and showed normal left ventricular function. Also his echo was normal. Therefore he can proceed with surgery from cardiac point of view with necessary anesthesia. He is considered to be at low risk for perioperative cardiac events. He should receive all his cardiac medications the morning of the surgery. Should avoid factors that may precipitate ischemia such as hypo or hypertension, tachycardia or bradycardia, hypoxia, or severe anemia. Please forward this note to his surgeon. Thank you Patient made aware and clearance note from Dr. Ang faxed to surgeon as well as his PCP.[facility] with Diffon 05-17-2024 Abs. Basophil0.05 k/uLNormal0.00-0.20[facility] HospitalComment on above: Performed By: #### LIPR #### [facility] [address] [place] [address] Director Internal Control: Autumn Kelly.Imm.Granulocyte0.11 k/uLNormal0.00-0.30[facility] HospitalComment on above:Performed By: #### LIPR #### [facility] [address] [place] [address] Director Internal Control: Autumn Kelly.Neutrophil (Seg)6.36 k/uLNormal1.50-8.10 [facility] HospitalComment on above:Performed By: #### LIPR #### [facility] [address] [place] [address] Director Internal Control: Carl Middleton MDBasophils/100 WBC (Bld)1 %Normal0-2[facility] HospitalComment on above:Performed By: #### LIPR #### [facility] [address] [place] [address] Director Internal Control: Carl Middleton MDEosinophils (Bld) [#/Vol]0.07 10*3/uLNormal 0.00-0.44[facility] HospitalComment on above:Performed By: #### LIPR #### [facility] [employer] [address] [place] [address] Director Internal Control: Carl Middleton MDEosinophils/100 WBC (Bld)1 %Normal1-4[facility] HospitalComment on above:Performed By: #### LIPR #### [address] [address] Director Internal Control: Carl Middleton MDErythrocyte distribution width (RBC) [Ratio]11.9 %Xdtlid26.8-14.4[facility] HospitalComment on above:Performed By: #### LIPR #### [facility] [employer] [address] [place] [address] Director Internal Control: Carl Middleton MDHematocrit (Bld) [Volume fraction]46.8 %Normal 40.7-50.3[facility] HospitalComment on above:Performed By: #### LIPR #### [address] [address] Director Internal Control: Carl Middleton MDHemoglobin (Bld) [Mass/Vol]16.6 g/dLNormal 13.0-17.0[facility] HospitalComment on above:Performed By: #### LIPR #### [facility] [employer] [address] [place] [address] Director Internal Control: Carl Middleton MDImmature granulocytes/100 WBC (Bld)1 %Kxvg7GeckaCrystal Clinic Orthopedic Center HospitalComment on above:Performed By: #### LIPR #### [facility] [employer] [address] [place] [address] Director Internal Control: Carl Middleton MDLymphocytes (Bld) [#/Vol]2.04 10*3/uLNormal 1.10-3.70[facility] HospitalComment on above:Performed By: #### LIPR #### [facility] [employer] [address] [place] [address] Director Internal Control: Carl Middleton MDLymphocytes/100 WBC (Bld)22 %Wfb10-36Ceepm Lakeside HospitalComment on above:Performed By: #### LIPR #### [address] [address] Director Internal Control: ESTELLE KellyCH (RBC) [Entitic mass]31.8 hvScwxrm95.2-33.5 [facility] HospitalComment on above:Performed By: #### LIPR #### [place] [address] Director Internal Control: ESTELLE KellyCHC (RBC) [Mass/Vol]35.5 g/dXPdak28.4-34.8[facility] HospitalComment on above:Performed By: #### LIPR #### [place] [address] Director Internal Control: ESTELLE KellyCV (RBC) [Entitic vol]89.7 vFWttfob41.6-102.9 [facility] HospitalComment on above:Performed By: #### LIPR #### [place] [address] Director Internal Control: ESTELLE Kellyonocytes (Bld) [#/Vol]0.67 10*3/uLNormal 0.10-1.20[facility] HospitalComment on above:Performed By: #### LIPR #### [place] [address] Director Internal Control: ESTELLE Kellyonocytes/100 WBC (Bld)7 %Normal3-12[facility] HospitalComment on above:Performed By: #### LIPR #### [place] [address] Director Internal Control: Carl Middleton MDNeutrophil (Seg)68 %Sryu30-62Hojcc [facility] HospitalComment on above:Performed By: #### LIPR #### [facility] [employer] [facility] [place] [address] Director Internal Control: AMRIK Kelly Automated0.0 per 100 WBCNormal0.0[facility] HospitalComment on above:Performed By: #### LIPR #### [facility] [employer] [address] [place] [address] Director Internal Control: Rhona Kelly mean volume (Bld) [Entitic vol]9.2 fL Normal8.1-13.5[facility] HospitalComment on above:Performed By: #### LIPR #### [facility] [employer] [address] [place] [address] Director Internal Control: Mercy Kelly (Bld) [#/Vol]293 10*3/yZLfrcxq440-898 [facility] HospitalComment on above:Performed By: #### LIPR #### [facility] [employer] [address] [place] [address] Director Internal Control: Carl Middleton MDRBC (Bld) [#/Vol]5.22 10*6/uLNormal4.21-5.77 [facility] HospitalComment on above:Performed By: #### LIPR #### [facility] [employer] [address] [place] [address] Director Internal Control: JENNY Kelly (Bld) [#/Vol]9.3 10*3/uLNormal3.5-11.3MCrystal Clinic [facility]opedic Center HospitalComment on above:Performed By: #### LIPR #### [facility] [employer] [address] [place] [address] Director Internal Control: BESSIE KellyA, DNA, Nasalon 31-01-8122TYOG, DNA, Nasal NegativeNormalNEGCrystal Clinic Orthopedic Center HospitalComment on above:Result Comment: NEGATIVE: MRSA DNA not detected by nucleic acid amplification. Results should be used as an adjunct to nosocomial control efforts to identify patients needing enhanced precautions. The test is not intended to identify patients with staphylococcal infections. Results should not be used to guide or monitor treatment for MRSA infections. Performed By: #### MRSANO #### [facility] [address] [facility] HospitalJose MalagonStrasburg, [place] [address] Director Internal Control: Carl Middleton MD [facility] [address] [place] [address] Dr. [place], [place] [id number] Director Internal Control: Rikki Renee Metabolic Profon 31-79-3052Nyiua gap [Moles/Vol]13 mmol/LNormal9-16[facility] HospitalComment on above:Performed By: #### BMP, CDP #### [address] [place], [place] [id number] Director Internal Control: Shamar Stephenson MDBUN/CRE Lutmb75Sefdlj6-87Jvlzc [facility] Comment on above:Performed By: #### BMP, CDP #### [address] [place] [address] Director Internal Control: FREDERICK Reneealcium [Mass/Vol]9.8 mg/dLNormal8.6-10.4[facility] HospitalComment on above:Performed By: #### BMP, CDP #### [address] [place] [address] Director Internal Control: FREDERICK Reneehloride [Moles/Vol]97 mmol/LObv45-291Otwvq [facility] HospitalComment on above:Performed By: #### BMP, CDP #### [address] [place] [address] Director Internal Control: Shamar Stephenson MDCO2 [Moles/Vol]26 mmol/IOrmtyn84-78Szziu [facility] HospitalComment on above:Performed By: #### BMP, CDP #### [address] [place], [place] 5035883 Director Internal Control: Shamar Sturtz, MDCreatinine [Mass/Vol]1.0 mg/dLNormal0.70-1.20[facility] HospitalComment on above:Performed By: #### SUHAIL, CDP #### [address] [place], [place] 8950383 Director Internal Control: Shamar Stephenson MDGFR/1.73 sq M.predicted among non-blacks MDRD (S/P/Bld) [Vol rate/Area]88 mL/min/{1.73_m2}Normal>60[facility] Comment on above:Result Comment: These results are not intended for use in patients <18 years of age. eGFR results are calculated without a race factor using the 2020 CKD-EPI equation. Careful clinical correlation is recommended, particularly when comparing to results calculated using previous equations. The CKD-EPI equation is less accurate in patients with extremes of muscle mass, extra-renal metabolism of creatine, excessive creatine ingestion, or following therapy that affects renal tubular secretion.Performed By: #### SUHAIL, CDP #### [address] [place], [place] 8993683 Director Internal Control: Shamar Stephenson MDGlucose [Mass/Vol]106 mg/eLUibo55-00EnpwcKettering Health – Soin Medical CenterComment on above:Performed By: #### SUHAIL, CDP #### [address] [place] [address] Director Internal Control: KEVIN Reneeotassium [Moles/Vol]4.2 mmol/LNormal3.7-5.3MKettering Health – Soin Medical CenterComment on above:Performed By: #### SUHAIL, CDP #### [address] [place] [address] Director Internal Control: CRISTY Reneeodium [Moles/Vol]136 mmol/JJdkbyu531-471GnrlpMercy Health Fairfield HospitalComment on above:Performed By: #### SUHAIL, CDP #### [address] [place], [place] 6022483 Director Internal Control: Shamar Stephenson MDUrea nitrogen [Mass/Vol]13 mg/dLNormal6-20[facility] HospitalComment on above:Performed By: #### BMP, CDP #### [address] [place] [address] Director Internal Control: LAYLA Renee with Diffon [id number]. Basophil0.07 k/uL Normal0.00-0.20MerMercy Health Anderson Hospital HospitalComment on above:Performed By: #### BMP, CDP #### [address] [place], [facility]83 Director Internal Control: MDAbs. ThelmaImm.Granulocyte0.09 k/uLNormal0.00-0.30MerMercy Health Anderson Hospital HospitalComment on above:Performed By: #### SUHAIL, CDP #### [address] [place], [place] [address] Director Internal Control: Autumn Renee.Neutrophil (Seg)7.01 k/uLNormal1.50-8.10[facility] HospitalComment on above:Performed By: #### SUHAIL, CDP #### [address] [place] [address] Director Internal Control: Shamar Stephenson MDBasophils/100 WBC (Bld)1 %Normal0-2[facility] HospitalComment on above:Performed By: #### SUHAIL, CDP #### [address] [place], [facility]83 Director Internal Control: Shamar Stephenson MDEosinophils (Bld) [#/Vol]0.06 10*3/uLNormal 0.00-0.44[facility] HospitalComment on above:Performed By: #### BMP, CDP #### [address] [place] [address] Director Internal Control: Shamar Stephenson MDEosinophils/100 WBC (Bld)1 %Normal1-4[facility] HospitalComment on above:Performed By: #### BMP, CDP #### [address] [place] [address] Director Internal Control: Shamar Stephenson MDErythrocyte distribution width (RBC) [Ratio]11.9 % Spdliv32.8-14.4[facility] HospitalComment on above:Performed By: #### BMP, CDP #### [address] [place] [address] Director Internal Control: Shamar Stephenson MDHematocrit (Bld) [Volume fraction]50.1 %Normal 40.7-50.3MCrystal Clinic Orthopedic Center HospitalComment on above:Performed By: #### BMP, CDP #### [address] [place] [address] Director Internal Control: Shamar Stephenson MDHemoglobin (Bld) [Mass/Vol]17.6 g/nUZewt14.0-17.0 [facility] HospitalComment on above:Performed By: #### BMP, CDP #### [address] [place] [address] Director Internal Control: Shamar Stephenson MDImmature granulocytes/100 WBC (Bld)1 %Pdel4OijdcMercy Health Fairfield HospitalComment on above:Performed By: #### BMP, CDP #### [address] [place], [facility]83 Director Internal Control: Shamar Stephenson MDLymphocytes (Bld) [#/Vol]2.57 10*3/uLNormal 1.10-3.70[facility] HospitalComment on above:Performed By: #### BMP, CDP #### [address] [place], [place] [id number] Director Internal Control: Shamar Stephenson MDLymphocytes/100 WBC (Bld)24 %Enzxfv53-33Zdjrk [facility] HospitalComment on above:Performed By: #### BMP, CDP #### [address] [place] [address] Director Internal Control: ESTELLE ReneeCH (RBC) [Entitic mass]31.8 ipDzvare32.2-33.5 [facility] HospitalComment on above:Performed By: #### BMP, CDP #### [address] [place], [place] [id number] Director Internal Control: ESTELLE ReneeCHC (RBC) [Mass/Vol]35.1 g/bJNhgq73.4-34.8[facility] HospitalComment on above:Performed By: #### BMP, CDP #### [address] [place], [place] 4583583 Director Internal Control: ESTELLE ReneeCV (RBC) [Entitic vol]90.4 aMUajfgh01.6-102.9 [facility] HospitalComment on above:Performed By: #### BMP, CDP #### [address] [place], [place] 0938383 Director Internal Control: ESTELLE Reneeonocytes (Bld) [#/Vol]0.95 10*3/uLNormal0.10-1.20 [facility] HospitalComment on above:Performed By: #### BMP, CDP #### [address] [place] [address] Director Internal Control: ESTELLE Reneeonocytes/100 WBC (Bld)9 %Normal3-12[facility] HospitalComment on above:Performed By: #### BMP, CDP #### [address] [place], [place] 8423383 Director Internal Control: Shamar Stephenson MDNeutrophil (Seg)65 %Csomvy08-43Lvjwe [facility] HospitalComment on above:Performed By: #### BMP, CDP #### [address] [place] [address] Director Internal Control: AMRIK Renee Automated0.0 per 100 WBCNormal0.0[facility] HospitalComment on above:Performed By: #### BMP, CDP #### [address] [place] [address] Director Internal Control: Rhona Renee mean volume (Bld) [Entitic vol]9.1 fL Normal8.1-13.5[facility] HospitalComment on above:Performed By: #### SUHAIL, CDP #### [address] [place] [address] Director Internal Control: Mercy Renee (Bld) [#/Vol]344 10*3/dGWctzoc301-492 [facility] HospitalComment on above:Performed By: #### SUHAIL, CDP #### [address] [place] [address] Director Internal Control: SANJEEV Renee (Bld) [#/Vol]5.54 10*6/uLNormal4.21-5.77[facility] HospitalComment on above:Performed By: #### SUHAIL, CDP #### [address] [place] [address] Director Internal Control: JENNY Renee (Bld) [#/Vol]10.8 10*3/uLNormal3.5-11.3MCrystal Clinic Orthopedic Center HospitalComment on above:Performed By: #### BMP, CDP #### [address] [place] [address] Director Internal Control: CARLOS EDUARDO Renee, DNA, Nasalon 63-12-4727Qmisoxzb Description .NASAL SWABNormalCrystal Clinic Orthopedic Center HospitalComment on above:Performed By: #### MRSANO #### [facility] [address] [place] [address] Director Internal Control: Carl Middleton MD [facility] [address] [place] [address] Director Internal Control: Pricila Renee Visiton 07-64-6696Shhzih-up [id number] Willie Lora 1970 M Date Provider Department Center 04/26/2024 [address]-RILNYJ JAMEBELLA [facility] No family history on file Level of Service:[address] [place] OFFICE/OUTPATIENT NEW MODERATE MDM 45 MINUTES Reason for Visit and Comments: New Patient [632] - Pt is here for surgery clearance for a hip replacement. NormalUnMercy Health Defiance HospitalBNPon 19-32-0484Zdqzqjalruf peptide B (Bld) [Mass/Vol]23.0 pg/mLNormal<=900.0The [facility] HospitalComment on above: Performed By: #### HSTROPN, BNP, CMP #### [facility] [address] [place] [address] Stephania KarenCBC AUTO DIFFon 31-47-6966RWTO #0.1 103/ulNormal0.0-0.1[facility] HospitalComment on above:Performed By: #### CBC #### [facility] [address] [place] [address] Stephania KarenBasophils/100 WBC (Bld)0.7 %Normal0.2-2.0[facility] Comment on above:Performed By: #### CBC #### [facility] [address] [place] [address] Stephania KarenEO #0.1 103/ulNormal0.0-0.7The [facility] HospitalComment on above: Performed By: #### CBC #### [facility] [address] [place] [address] Stephania KarenEosinophils/100 WBC (Bld)0.6 %Critically low0.9-7.0The [facility] / Crille HospitalComment on above:Performed By: #### CBC #### [facility] [address] [place] [address] Stephania KarenErythrocyte distribution width (RBC) [Ratio]12.4 %Dfaobv02.0-15.0The [facility] HospitalComment on above:Performed By: #### CBC #### [facility] [address] [place] [address] Stephania KarenHematocrit (Bld) [Volume fraction]49.3 %Jehcpr35.0-54.0The [facility] HospitalComment on above:Performed By: #### CBC #### [facility] [address] [place] [address] Stephania KarenHemoglobin (Bld) [Mass/Vol]16.8 g/uDSfrovz79.0-18.0The [facility] HospitalComment on above:Performed By: #### CBC #### [facility] [address] [place] [address] Stephania KarenIG #0.09 10e3/ulCritically high0.00-0.03The [facility] HospitalComment on above:Performed By: #### CBC #### [facility] [address] [place] [address] Stephania KarenIG %1.1 %Critically high0.0-0.5The [facility] HospitalComment on above:Performed By: #### CBC #### [facility] [address] [place] [address] Stephania KarenLYMPH #2.3 103/ulNormal1.2-3.8The [facility] HospitalComment on above: Performed By: #### CBC #### [facility] [address] [place] [address] Stephania KarenLymphocytes/100 WBC (Bld)27.6 %Esbnyx90.5-60.0The [facility] Comment on above:Performed By: #### CBC #### [facility] [address] [place] [address] Stephania KarenMANUAL DIFF REQNONormalThe [facility] HospitalComment on above: Performed By: #### CBC #### [facility] [address] [place] [address] Stephania [facility]attELL[facility] (RBC) [Entitic mass]31.5 fiGjzsov24.9-34.0The [facility] Comment on above:Performed By: #### CBC #### [facility] [address] [address] Stephania PrattMC (RBC) [Mass/Vol]34.1 g/sNRyoamn67.9-35.2The [facility] Comment on above:Performed By: #### CBC #### [facility] [address] [address] Stephania PrattMCV (RBC) [Entitic vol]92.5 iEPtgnlc42.0-94.0The [facility] Comment on above:Performed By: #### CBC #### [facility] [address] [place] [address] Stephania EnriqueenMONO #0.7 103/ulNormal0.3-0.8The [facility] HospitalComment on above: Performed By: #### CBC #### [facility] [address] [place] [address] Stephania KarenMonocytes/100 WBC (Bld)8.1 %Normal1.7-12.0The [facility] Comment on above:Performed By: #### CBC #### [facility] [address] [place] [address] Stephania EnriqueenNEUT #5.1 103/ulNormal1.4-6.5The [facility] HospitalComment on above: Performed By: #### CBC #### [facility] [address] [place] [address] Stephania KarenNeutrophils/100 WBC (Bld)61.9 %Mpmhun90.0-75.0The [facility] Comment on above:Performed By: #### CBC #### [facility] [address] [place] [address] Stephania KarenPlatelet mean volume (Bld) [Entitic vol]9.7 fLNormal9.5-13.5The [facility] HospitalComment on above:Performed By: #### CBC #### [facility] [address] [place] [address] Stephania LnetyWME881 103/ztLrpzln585-181Isf [facility] HospitalComment on above: Performed By: #### CBC #### [facility] [address] [place] [address] Stephania KarenRBC5.33 106/ulNormal4.70-6.10The [facility] HospitalComcorewell health butterworth hospital on above: Performed By: #### CBC #### [facility] [address] [place] [address] Stephania EnriqueenWBC8.3 103/ulNormal4.0-11.0The [facility] HospitalComcorewell health butterworth hospital on above: Performed By: #### CBC #### [facility] [address] [place] [address] Stephania KarenD-DIMERon 46-04-2592W-DIMER0.19 mg/L FEUNormal0.19-0.50The [facility] HospitalComcorewell health butterworth hospital on above:Performed By: #### DDIM #### [facility] [address] [place] [address] Stephania KarenD-DIMER COMMENTSSEE [facility]ITALNoOhioHealth Grove City Methodist HospitalComcorewell health [facility] on above:Result Comment: Increases in D-Dimer concentration observed with thromboembolic events can be variable due to localization, size, and age of the thrombus. Therefore, a thromboembolic event cannot be diagnosed with certainty on the basis of the reference range. D-Dimers may also be elevated for a variety of disorders including: advanced age, , coronary disease, cancer, liver disease, infection, inflammation, hematoma, DIC, trauma, post-surgery, diabetes, thrombolytic or anticoagulant therapy, stress, and generalized hospitalization. Performed By: #### DDIM #### [facility] [address] [place] [address] Stephania KarenPROF 14(COMP METB)on 24-47-6898Mdvsfud [Mass/Vol]4.0 g/dLNormal 3.5-5.0[facility] on above:Performed By: #### HSTROPN, BNP, CMP #### [facility] [address] [place], [place] [address] Stephania KarenAlbumin/Globulin [Mass ratio]1.3 {ratio}NormalWilson Memorial Hospital Comment on above:Performed By: #### MARYELLENTRROVERTON, BNP, CMP #### [facility] [address] [address] Stephania KarenALP [Catalytic activity/Vol]60 U/BIdwmmf17-074CrbWilson Memorial Hospital Comment on above:Performed By: #### MARYELLENTROPN, BNP, CMP #### [facility] [address] [address] Stephania KarenALT [Catalytic activity/Vol]58 U/RVtgpfy33-44AhjWilson Memorial Hospital Comment on above:Performed By: #### THOR BNP, CMP #### [facility] [address] [place] [address] Stephania KarenAnion gap [Moles/Vol]15.1 mmol/LNormalWilson Memorial HospitalComment on above:Performed By: #### MARYELLENTRROVERTON, BNP, CMP #### [facility] [address] [place] [address] Stephania KarenAST [Catalytic activity/Vol]36 U/RXxaqlj88-02YnqWilson Memorial Hospital Comment on above:Performed By: #### MARYELLENTRROVERTON, BNP, CMP #### [facility] [address] [place] [address] Stephania KarenBilirubin [Mass/Vol]0.3 mg/dLNormal0.2-1.3TSycamore [facility] Comment on above:Performed By: #### HSTROPN, BNP, CMP #### [facility] [address] [place] [address] Stephania KarenCalcium [Mass/Vol]9.1 mg/dLNormal8.4-10.2[facility] Comment on above:Performed By: #### MARYELLENTROPN, BNP, CMP #### [facility] [address] [place] [address] Stephania KarenChloride [Moles/Vol]103 mmol/YKhqwij92-813EniWilson Memorial Hospital Comment on above:Performed By: #### HSTROPN, BNP, CMP #### [facility] [address] [place] [address] Stephania KarenCO2 [Moles/Vol]27.0 mmol/YXvoigt18.0-30.0The [facility] Comment on above:Performed By: #### HSTROPN, BNP, CMP #### [facility] [address] [place] [address] Stephania KarenCreatinine [Mass/Vol]1.44 mg/dLCritically high0.66-1.25The [facility] HospitalComment on above:Performed By: #### HSTROPN, BNP, CMP #### [facility] [address] [place] [address] Stephania KarenEGFR-AF PAPUA NEW GUINEAN>60Normal>=60Wilson Memorial HospitalComment on above: Performed By: #### HSTROPN, BNP, CMP #### [facility] [address] [place] [address] Stephania KarenEGFR-NON AF JNNHRGJQ92 mL/min/1.73y9Pghbzxfnmc low>=60The [facility] HospitalComment on above:Performed By: #### HSTROPN, BNP, CMP #### [facility] [address] [place] [address] Stephania KarenGlobulin (S) [Mass/Vol]3.2 g/dLNormalThOhioHealth Berger HospitalComment on above:Performed By: #### HSTROPN, BNP, CMP #### [facility] [address] [place] [address] Stephania KarenGlucose [Mass/Vol]146 mg/dLCritically rrly05-264OjwWilson Memorial HospitalComment on above:Performed By: #### HSTROPN, BNP, CMP #### [facility] [address] [place] [address] Stephania KarenPotassium [Moles/Vol]4.1 mmol/LNormal3.4-5.0[facility] Comment on above:Performed By: #### HSTROPN, BNP, CMP #### [facility] [address] [place] [address] Stephania KarenProtein [Mass/Vol]7.2 g/dLNormal6.1-8.2The [facility] HospitalComment on above:Performed By: #### HSTROPN, BNP, CMP #### [facility] [address] [address] Stephania KarenSodium [Moles/Vol]141 mmol/BDctszg275-140Mpu [facility] Comment on above:Performed By: #### HSTROPN, BNP, CMP #### [facility] [address] [address] Stephania KarenUrea nitrogen [Mass/Vol]24.0 mg/dLCritically high9.0-20.0The [facility] HospitalComment on above:Performed By: #### HSTROPN, BNP, CMP #### [facility] [address] [address] Stephania KarenUrea nitrogen/Creatinine [Mass ratio]16.7 mg/mgNormalThe [facility] HospitalComment on above:Performed By: #### HSTROPN, BNP, CMP #### [facility] [address] [address] Stephania KarenTROPONIN, HIGH SENSITIVITYon 90-33-9049EIIKHG6.2 pg/mLNormal4.0-42.2 The [facility] HospitalComment on above:Result Comment: CUT-OFF POINTS HAVE BEEN ESTABLISHED BASED ON THE FOURTH UNIVERSAL DEFINITIONS OF MYOCARDIAL INFARCTION. THE UPPER REFERENCE LIMIT (URL) OF TROPONIN, DEFINED THE 99TH PERCENTILE OF cTnI DISTRIBUTION IN A REFERENCE POPULATION, HAS BEEN CONFIRMED THE DECISION THRESHOLD FOR NC DIAGNOSIS.Performed By: #### HSTROPN, BNP, CMP #### [facility] [address] [place] [address] Stephania KarenXR CHEST 2 Von 62-24-1142ZJ CHEST 2 VEXAM: CHEST 2 VIEWS HISTORY: Chest pain TECHNIQUE: PA and lateral views chest. COMPARISON: None. FINDINGS: There is blunting of the right lateral costophrenic recess. No lobar consolidation or pneumothorax. Pulmonary vasculature is within normal limits. There is mild aortic atherosclerosis. The cardiomediastinal silhouette is normal. IMPRESSION: 1. Blunted lateral right costophrenic recess, either from a tiny right pleural effusion or scarring. 2. No focal lung consolidation. 3. Normal heart size. Electronically authenticated by: DAISY LAWNG Date: 2021-02-14 13:08[facility] HospitalXR LT HIP W/ PELVIS 2-3 VIEWSon 64-91-6845OD LT HIP W/ PELVIS 2-3 VIEWSEXAMINATION: XR LT HIP W/ PELVIS MIN 2-3 VIEWSED CLINICAL HISTORY: pain to left hip TECHNOLOGISTS NOTE: COMPARISON: None FINDINGS: The pelvic ring is intact. No acute pelvic fracture or dislocation is identified. The junction of left femoral head and neck has abnormal a prominent convex contour. The left hip joint space is severely narrowed superolaterally with bony overgrowth at superior acetabulum. There is also osteophyte formation at the inferomedial aspect left hip joint. The right hip is also narrowed and has mild osteophyte formation inferomedially. IMPRESSION: No acute left hip or pelvic fracture or dislocation. Abnormalities left hip probably representing combination of CAM and pincer deformities with evidence of femoral acetabular impingement. Mild changes suggesting femoral acetabular impingement right hip. MACRO: None I have reviewed the study and interpretation with the resident and agree with the findings.NormalThe [facility] 14-33-1416MMTWSU HEALTHHNO ID: [id number]: Eve Garcia (Rt)vice: RadiologyAuthor Type: TechnicianType: Allied HealthFiled: 02/01/2018 1:51 PMNote Text: Radiology Service Progress NotePATIENT NAME: Willie parkMRN: [id number] OF SERVICE: February 01, 2018TIME: 1:51 PMPATIENT IDENTITY VERIFICATION COMPLETEDUSING TWO (2) METHODS: Patientconfirmed name verbally and ID band matches..PATIENT GENDER DATA: MalePATIENT RELEVANT IMPLANT DATA REVIEWED: Not ApplicableRADIOLOGY DEPARTMENT: General X-ray: Exam(s) Completed: Upper ExtremityX-Ray(s): Forearm, left :PERIPHERAL IV DATA: Not applicableSIGNED BY: Edwige Garcia 2017 1:51 PMNormalFairview HospitalED NOTEon [id number] NOTEHNO ID: [id number]: Floyd HwangRn) [employer] Louisice: (none)Author Type: Registered NurseType: ED NotesFiled: 02/01/2018 2:30 PMNote Text: Went over discharge instructions and follow up needs with patient. Ptgave verbal understanding of discharge instruction. Pt left with steadygait. Pt left by self.[facility] HospitalED NOTEHNO ID: [id number]: Floyd (Rn) JOAQUIN Louiservice: (none)Author Type: Registered NurseType: ED NotesFiled: 02/01/2018 1:54 PMNote Text: Pt sts a piece of glass struck his arm distal to elbow. Pt in noapparent distress. No bleeding noted.[facility]wood HospitalED PROV NOTEon [id number] PROV NOTEHNO ID: [id number]: [place]) PatelService: Emergency MedicineAuthor Type: Physician AssistantType: ED Provider NotesFiled: 02/01/2018 2:55 PMNote Text:ED Provider NotePatient Name: Willie LoraMRN: [id number] DATE: 02/01/18HistoryPatient presents with:Arm Injury: left forearm, glass stuck in armHistory provided by: PatientLanguage american sign language interpreter used: No47 year old male with complaint of forearm wound x prior to arrival. Hestates a storm window broke and fell on to his forearm. He hasa small cuton his arm and is unsure if he has glass in it. He didn't see anythingsticking out of the wound. 2/10 pain. No paresthesias or difficulty movingfingers/wrist. Unsure of his last tetanus.PAST MEDICAL HISTORYDiagnosis Date- Heart attack (HCC)PAST SURGICAL HISTORYProcedure Laterality Date- CARDIAC CATHETERIZATION HX stent x1No family history on file.Social HistorySocial History Main Topics- Smoking status: Current Every Day Smoker Packs/day: 0.50 Types: Cigarettes- Smokeless tobacco: Not on file- Alcohol use No- Drug use: No- Sexual activity: Not on fileALLERGIESNo Known AllergiesNo current facility- administered medications on file prior to encounter.Current Outpatient Prescriptionson File Prior to Encounter:HYDROcodone-acetaminophen (NORCO) 5-325 mg per tablet Take 1 tablet bymouth every 8 hours as needed for Pain.meloxicam (MOBIC) 7.5 mg tablet Take 1 tablet by mouth once daily.zolpidem (AMBIEN) 10 mg tab Take 1 tablet by mouth at bedtime as needed(for insomnia.).Aspirin 81mg tab Take 81 mg by mouth once daily.ibuprofen 800 mg tablet Take 1 tablet by mouth every 8 hours as needed forPain.Review of SystemsConstitutional: Negative for chills and fever.Skin: Positive for wound. Negative for pallor and rash.Neurological: Negative for weakness and numbness.Physical WbzlSV428/97 Pulse 107 Temp (Src) 98.1 (Oral) Resp 16 Ht 6' 0 (1.83m) Wt 215 lb (97.5kg) InB299% BMI 29.15 kg/(m2).Physical ExamConstitutional: He is oriented to person, place, and time. He appearswell-developed and well- nourished. No distress.Well appearing, in no distressHENT:Head: Normocephalic and atraumatic.Eyes: Conjunctivae and EOM are normal.Neck: Normal range of motion. Neck supple.Cardiovascular: Intact distal pulses.Pulmonary/Chest: Effort normal. No respiratory distress.Musculoskeletal: Normal range of motion. Arms:MS 5/5 of left wrist and all digits of left handNeurological: He is alert and oriented to person, place, and time. Nocranial nerve deficit.Skin: Skin is warm and dry. No rash noted.Psychiatric: He has a normal mood and affect. His behavior is normal.Nursingnote and vitals reviewed.Diagnostic TestingED Labs Ordered and Reviewed - No data to displayLeft forearm xray:NO ACUTE OSSEOUS ABNORMALITY.NO EVIDENCE OF RADIOPAQUE SOFT TISSUE FOREIGN BODY.ProceduresMedical Decision MakingVital signs were reviewed.Triage records were reviewed.Medical records were reviewed.Nursing notes were reviewed and incorporated.MedicationsTdap 0.5 mL injection (ADACEL) (0.5mL INTRAMUSCULAR Given 02/01/18 1351)MDM47 year old male with complaint of left forearm laceration. Exam noted.There is no visible or palpable foreign body. Xray with no acute findings.I tried to irrigate wound however it is an extremely small laceration. Idiscussed with patient that there is a small chance there may be a littlepiece of glass in there. If this is the case, it may work its way to th esurface of his skin. He Understands this. Tetanus was updated. 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 Results reviewed with patientThe patient and/or family-had the results of all tests and diagnosis explained to them-were given both verbal and written discharge instructions-were instructed of the importance of close fo jwet-pc-gzbaqdww on strict return precautions, to return to the ED if noimprovement of symptoms or pain worsens or new symptoms arise.-were told that close follow-up is essential for good health and goodoutcomesED Course / Clinical ImpressionClinical Impressions as of Feb 01 1448Laceration of left f orearm, initial encounterPlanSIGNATURE: DAVIDSON Rosado-Anna (Davidson) Martínez02/01/18 1455[facility] HospitalXR FOREARM 2V AP/LAT LTon [id number] FOREARM 2V AP/LAT LT* * *Final Report* * *DATE OF EXAM: Feb 01 2018 1:47PM FVX 5341 - XR FOREARM 2V AP/LAT LT / REASON: Forearm trauma, penetrating * * * * Physician Interpretation * * * *HISTORY: Forearm trauma, penetratingTECHNIQUE: XR FOREARM 2V AP/LAT LTCOMPARISON: NoneRESULT:No evidence of acute fracture or osseous malalignment. No radiopaque soft tissue foreign body. Small cortically ossific densities noted adjacent to the medial and lateral humeral condyles.IMPRESSION:NO ACUTE OSSEOUS ABNORMALITY.NO EVIDENCE OF RADIOPAQUE SOFT TISSUE FOREIGN BODY.Barrel Ribs Solderer: SHAKA Transcribe Date/Time: Feb 01 2018 1:50PDictated by : JACKSON CHARLES MDThis examination was interpreted and the report reviewed and electronically signed by: JACKSON CHARLES MD on Feb 01 2018 1:[id number]_IDCSIACNNWalden Behavioral CareCB and Differentialon 56-32-5205Uex Baso0.06 k/uLNormal<0.11[facility] HospitalComment on above:Performed By: #### CBCDIF, PT, CMP, CKCKMB, YECENIA ####[address] [place], [place] [phone] Mono0.62 k/uLNormal<0.87Ohiohealth HospitalComment on above:Performed By: #### CBCDIF, PT, CMP, CKCKMB, YECENIA ####[address] [place] [phone] Neut4.30 k/uLNormal1.45-7.50[facility] Comment on above:Performed By: #### CBCDIF, PT, CMP, CKCKMB, YECENIA ####[address] [phone]/100 WBC Auto (Bld)0.8 %NormalHolzer HospitalComment on above:Performed By: #### CBCDIF, PT, CMP, CKCKMB, YECENIA ####[address] [phone] DiffNormalOhiohealth HospitalComment on above:Performed By: #### CBCDIF, PT, CMP, CKCKMB, YECENIA ####[address] [place] [phone] 10*3/uLNormal<0.46Ohiohealth HospitalComment on above:Performed By: #### CBCDIF, PT, CMP, CKCKMB, YECENIA ####[address] [phone]/100 leukocytes2.6 %NormalOhiohealth HospitalComment on above:Performed By: #### CBCDIF, PT, CMP, CKCKMB, YECENIA ####[address] [phone] distribution width Auto Ratio (RBC)11.9 %Nhzuer80.5-15.0[facility] Comment on above:Performed By: #### CBCDIF, PT, CMP, CKCKMB, YECENIA ####[address] [place] [phone] (RBC) 10*6/uLNormal<0.01[facility] HospitalComment on above:Performed By: #### CBCDIF, PT, CMP, CKCKMB, YECENIA ####[address] [place] [phone] (RBC)0.0 /100 BXPBjjhwt1Vjztuwpuc HospitalComment on above:Performed By: #### CBCDIF, PT, CMP, CKCKMB, YECENIA ####[address] [place] [phone] (RBC) 5.00 10*6/uLNormal4.20-6.00[facility] HospitalComment on above:Performed By: #### CBCDIF, PT, CMP, CKCKMB, YECENIA ####[address] [place] [phone] (HCT)45.7 %Zbvelc61.0-51.0[facility] HospitalComment on above:Performed By: #### CBCDIF, PT, CMP, CKCKMB, YECENIA ####[address] [place] [phone] Hemoglobin mass conc (Bld)15.9 g/cMWlrims86.0-17.0[facility] HospitalComment on above:Performed By: #### CBCDIF, PT, CMP, CKCKMB, YECENIA ####[address] [place] [phone] 10*3/uLNormal1.00-4.00[facility] HospitalComment on above:Performed By: #### CBCDIF, PT, CMP, CKCKMB, YECENIA ####[address] [place] [phone]/100 lwfebfhdfr69.7 %[facility] HospitalComment on above:Performed By: #### CBCDIF, PT, CMP, CKCKMB, YECENIA ####[phone] 31.8 jEXeucbx67.0-34.0[facility]health HospitalComment on above:Performed By: #### CBCDIF, PT, CMP, CKCKMB, YECENIA ####[address] [place] [phone] mass conc (RBC)34.8 g/yTOuwamb85.5-36.0[facility]health HospitalComment on above:Performed By: #### CBCDIF, PT, CMP, CKCKMB, YECENIA ####[address] [place] [phone] 91.4 ySIjiith37.0-100.0[facility] HospitalComment on above:Performed By: #### CBCDIF, PT, CMP, CKCKMB, YECENIA ####[address] [place] [phone]/100 leukocytes8.6 %[facility] Comment on above:Performed By: #### CBCDIF, PT, CMP, CKCKMB, YECENIA ####[phone]/100 WBC Auto (Bld)59.3 %[facility] HospitalComment on above:Performed By: #### CBCDIF, PT, CMP, CKCKMB, YECENIA ####[phone] mean volume (PMV)10.2 fLNormal9.0-12.7 [facility] HospitalComment on above:Performed By: #### CBCDIF, PT, CMP, CKCKMB, YECENIA ####[address] [place] [phone] Lnwbcazyv319 10*3/hIPcoofl442-175Dpfaaibpn HospitalComment on above:Performed By: #### CBCDIF, PT, CMP, CKCKMB, YECENIA ####[address] [phone] (Leukocytes)7.25 10*3/uLNormal 3.70-11.00[facility] HospitalComment on above:Performed By: #### CBCDIF, PT, CMP, CKCKMB, YECENIA ####[address] [phone], Total and CKMBon 90-35-6641BIRYYM MB % not reported with CK <100 U/L.Normal0.0-4.0[facility] HospitalComment on above:Performed By: #### CBCDIF, PT, CMP, CKCKMB, YECENIA ####[address] [place] [phone] kinase (CK)60 U/FNzzhaj19-065Ctnkpdcsn HospitalComment on above:Performed By: #### CBCDIF, PT, CMP, CKCKMB, YECENIA ####[address] [phone] ng/mLNormal0.0-10.3[facility] HospitalComment on above:Performed By: #### CBCDIF, PT, CMP, CKCKMB, YECENIA ####[address] [place] [phone] Metabolic Panelon 30-99-2966Tevzktp aminotransferase (ALT) 37 U/LNormal0-41Holzer HospitalComment on above:Performed By: #### CBCDIF, PT, CMP, CKCKMB, YECENIA ####[address] [phone] g/dLNormal4.0-4.9[facility] HospitalComment on above: Performed By: #### CBCDIF, PT, CMP, CKCKMB, YECENIA ####[address] [phone] phosphatase (ALP)63 U/L Zswvin92-996Mtihpsbxr HospitalComment on above:Performed By: #### CBCDIF, PT, CMP, CKCKMB, YECENIA ####[address] [place] [phone] gap12 mmol/LNormal0-15[facility] HospitalComment on above: Performed By: #### CBCDIF, PT, CMP, CKCKMB, YECENIA ####[address] [phone] aminotransferase (AST) 25 U/LNormal0-40Holzer HospitalComment on above:Performed By: #### CBCDIF, PT, CMP, CKCKMB, YECENIA ####[address] [phone] (total)0.4 mg/dLNormal0.0-1.2[facility] Comment on above:Performed By: #### CBCDIF, PT, CMP, CKCKMB, YECENIA ####[address] [phone] mg/dL Normal8.5-10.2[facility] HospitalComment on above:Performed By: #### CBCDIF, PT, CMP, CKCKMB, YECENIA ####[address] [place] [phone] mmol/TIybrca78-055Binedjbfo HospitalComment on above:Performed By: #### CBCDIF, PT, CMP, CKCKMB, YECENIA ####[address] [place] [phone] mmol/LNormal 22-29[facility] HospitalComment on above:Performed By: #### CBCDIF, PT, CMP, CKCKMB, YECENIA ####[address] [place] [phone] mg/dLNormal0.67-1.17[facility] HospitalComment on above:Performed By: #### CBCDIF, PT, CMP, CKCKMB, YEECNIA ####[address] [place] [phone] (non-black) mL/min/{1.73_m2}Normal>60[facility] HospitalComment on above:Performed By: #### CBCDIF, PT, CMP, CKCKMB, YECENIA ####[address] [place] [phone] Comment: eGFR (Estimated GFR) Units of measure: mL/min/1.73 meters squaredeGFR is derived from the 4 variable MDRD equation for glomerular filtration rate (GFR) based on a stable serum creatinine, gender, and age.According to KDOQI guidelines, an eGFR <60 mL/min/1.73m2 is sufficient to diagnose a patient with chronic kidney disease.Glucose mass htld861 mg/dLHigh 74-99MGeorgetown Behavioral HospitalComment on above:Performed By: #### CBCDIF, PT, CMP, CKCKMB, YECENIA ####[address] [place] [phone] molar conc4.3 mmol/LNormal3.4-4.5[facility] Comment on above:Performed By: #### CBCDIF, PT, CMP, CKCKMB, YECENIA ####[address] [place] [phone] g/dL Normal6.6-8.7[facility] HospitalComment on above:Performed By: #### CBCDIF, PT, CMP, CKCKMB, YECENIA ####[address] [place] [phone] mmol/LPnboxe731-415Dzxpzhvdh HospitalComment on above:Performed By: #### CBCDIF, PT, CMP, CKCKMB, YECENIA ####[address] [place] [phone] acqpgpvj68 mg/dLNormal6-20MarUC Medical CenterComment on above:Performed By: #### CBCDIF, PT, CMP, CKCKMB, YECENIA ####[address] [place] [phone] NOTEon 94-08-6400BQ NOTEHNO ID: [id number]: Chitra (Kenrick) Silvino, RNService: (none)Author Type: Registered NurseType: ED NotesFiled: 07/05/2017 1:07 PMNote Text:Pt provided with discharge instructions and denies anyquestions. Ptverbalized understanding of instructions, reasons to return to ED,importance of follow-up care and OTC medications for pain. 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 Pt states itbegan while laying down in bed. Pt states he has been having a cough sincehe started his Lisinopril. Pt states he took one Nitro tablet withoutrelief ROVING CARRIER. Pt states his pain worsens mid-sternal during inspiration. Ptstates he has a smokers cough that brings up occasional phlegm th at he isnot concerned about because he was seen by his physician for. Pt oncardiac monitor and showing sinus rhythm at a rate of 78. Pt on continuouspulse ox and is maintaining at 99% on room air.Plan of care-Monitor Patient's Vital Signs for changes in condition-Monitor patient for changes in pain-Maintain patient safety and privacy-Provide comfort measures-Call light in placeSiderails up, bed in locked and low position'[facility] HospitalED PROV NOTEon 15-30-4680SI PROV NOTEHNO ID: [id number]: CRISTY Joneservice: Emergency MedicineAuthor Type: PhysicianType: ED Provider NotesFiled: 07/05/2017 1:00 PMNote Text:ED Provider NotePatient Name: Willie LoraMRN: [id number] DATE: 07/05/17HistoryPatient presents with:Chest Pain: onset 1 hour ago increase w inspirationHPI Comments: 47-year-old male with history of prior NC in [address], hypertension and hyperlipidemia presents with asubsternal chest discomfort that began approximately 3 hours prior to EDarrival. Symptoms have been intermittent, nonradiating, described as adull and sharp sensation that different times. Symptoms mildly aggravatedwith taking a deep breath, denies alleviating factors. Had a cough for thepast several days which seems to exacerbate chest discomfort. Cough seemsto be associated with lisinopril. Tried nitroglycerin at home with nochange in his symptoms. Saw PCP who prescribed an antitussive medicationwhich she did not get filled. Takes aspirin on a dailybasis.Significant cardiac history and family. Had URI symptoms approximately 2weeks ago for which he was given amoxicillin by his primary carephysician. Smokes 10 cigarettes a day, occasional alcoholuse, deniesillicit drug use.History provided by: PatientLanguage american sign language interpreter used: NoPAST MEDICAL HISTORYDiagnosis Date- Heart attackPAST SURGICAL HISTORYProcedure Laterality Date- CARDIAC CATHETERIZATION HX stent x1No family history on file.Social HistorySocial History Main Topics- Smoking status:Current Every Day Smoker Packs/day: 0.50 Types: Cigarettes- Smokeless tobacco: None- Alcohol use No- Drug use: No- Sexual activity: Not AskedALLERGIESNo Known AllergiesReview of SystemsConstitutional: Negative for chills, diaphoresis and fever.HENT: Negative for congestion, rhinorrhea and sore throat.Eyes: Negative for visual disturbance.Respiratory: Positive for cough. Negative for chest tightness andshortness of breath.Cardiovascular: Positive for chest pain. Negative for palpitations and legswelling.Gastrointestinal: Negative for blood in stool, nausea and vomiting.Genitourinary: Negative for dysuria and hematuria.Musculoskeletal: Negative for back pain and myalgias.Skin: Negative for rash.Neurological: Negative for syncope, weakness, light-headedness andheadaches.Physical ExamBP 133/94 Pulse 88 Temp (Src) 97.3 (Temporal Artery) Resp 15 Ht 5'11 (1.80m) Wt 200 lb (90.7kg) SpO2 98% BMI 27.91 kg/(m2).Physical ExamConstitutional: He is oriented to person, place, and time. He appearswell-developed and well-nourished. No distress.HENT:Head: Normocephalic and atraumatic.Mouth/Throat: Oropharynx is clear and moist. No oropharyngeal exudate.Eyes: EOM are normal. Pupils are equal, round, and reactive to light.Neck: Normal range of motion. Neck supple. No JVD present. No trachealdeviation present.Cardiovascular: Normal rate, regular rhythm, normal heart sounds andintactdistal pulses. Exam reveals no gallop and no friction rub.No murmur heard.Pulmonary/Chest: Effort normal and breath sounds normal. No stridor. Norespiratory distress. He has no wheezes. He has no rales. He exhibits notenderness.Abdominal: Soft. There is no tenderness.Musculoskeletal: Normal range of motion. He exhibits no edema ortenderness.Lymphadenopathy: He has no cervical adenopathy.Neurological: He is alert and oriented to person, place, and time. Nocranial nerve deficit. He exhibits normal muscle tone.Skin: Skin is warm and dry. No rash noted. He is not diaphoretic.Psychiatric: He has anormal mood and affect.Nursing note and vitals reviewed.Diagnostic TestingED Labs Ordered and ReviewedCOMPREHENSIVE METABOLIC PANEL (AK,AV,EU,FV,HL,SONG,MM,SP) - Abnormal;Notable for the following: Result Value Ref Range Glucose 116 (*) 74 - 99 mg/dL All other components within normal limitsPROTHROMBIN TIME / PT (AK,AV,EU,FV,HL,SONG,MM,SP)TROPONIN T (AV,EU,FV,HL,SONG,MM,SP)CBC + AUTO DIFF (AK,AV,EU,FV,HL,SONG,MM,SP)CK TOTAL AND CK-MB (AK,AV,EU,FV,HL,SONG,MM,SP)ProceduresMedical Decision Making / ED CourseED CoursePatient is in no acute distress. Afebrile, blood pressure 131/89,remaining vitals within normal limits. Sfc-xqu-noxfwwahz. EKG shows anormal sinus rhythm with a rate of 96, PACs noted, no PRshortening or QTCprolongation, no acute ischemic findings. Patient does have a significantcardiac history, concerned that this is the source of his presentation.Presentation also secondary to pleurisy given recent URI symptoms withexacerbation with cough or taking a deep breath. Not likely PE,dissection or other acute process at this time. Basic labs areunremarkable. Troponin and CK-MB are negative. Chest x-ray shows nopneumothorax, infiltrates or other acute findings. Findings discussed withthe patient. Mild improvement of discomfort on reevaluation. Discussedadmission for further evaluationand treatment. Patient prefers to gohome at this time. Patient does have a low heart score, we had shareddecision making. Patient states he has good outpatient follow-up [facility] who has referred him to a assayer helper.Encounter Diagnosis ICD-10-CM1. Cough due to MALINA inhibitor R05 T46.4X5A2. Tobacco use disorder F17.2002. Chest pain, unspecified type R07.9PlanThe Patient was DISCHARGED: Counseled patient regarding lab results ANDradiology results AND suspected diagnosis ANDneed for follow-up. Dischargedhome with verbal and written instructions. They were instructed to ret urnas needed for persistent or worsening symptoms or any new concerns.Condition at time of disposition: stableSIGNATURE: Naldo Jones MD07/05/17 1300 [facility] HospitalProtimeon 50-16-0322UAG Coag RelTime (Bld)1.0 {INR} Normal0.9-1.3[facility] HospitalComment on above:Result Comment: Vitamin K Antagonist (VKA) Therapeutic Range: INR 2 to 3 (Target INR of 2.5)Note: For patients treated with VKA drugs, such as warfarin, the [place] [employer] 2012 Guideline recommends a therapeutic INR range of 2 to 3 (target INR of 2.5). This recommendation includes high-risk patients with antiphospholipid syndrome with previous arterial or venous thromboembolism, current-generation mechanical or bioprosthetic aortic heart valve replacement.Note: Patients with mechanical aortic valve replacement and additional risk factors for thromboembolic events (atrialfibrillation, previous thromboembolism, LV dysfunction, hypercoagulable conditions) or an older gene ration mechanical AVR (i.e., ball in-Cage) or any mechanical MVR should have a INR therapeutic range of 2.5 to 3.5 (target INR of 3).Cristiane GH, et al. Chest 2012, 141:7S-47SNishtheodore RA, et al. [facility] 2017, 70: 252-289Performed By: #### CBCDIF, PT, CMP, CKCKMB, YECENIA ####[address] [place] [phone] Sec9.9 secNormal9.7-13.0[facility] HospitalComment on above:Performed By: #### CBCDIF, PT, CMP, CKCKMB, YECENIA ####[address] [place] [phone] Ton 33-48-1231Mfhlqpxt T.cardiac mass concug/LNormal0.000-0.029[facility] Comment on above:Performed By: #### CBCDIF, PT, CMP, CKCKMB, YECENIA ####[address] [place] [phone] CHEST 1V FRONTAL PORTon 35-99-1067IP CHEST 1V FRONTAL PORT* * *Final Report* * *DATE OF EXAM: Jul 05 2017 11:46AM MMX [id number] - XR CHEST 1V FRONTAL PORT / REASON: Chest pain * * * * Physician Interpretation * * * * EXAMINATION: CHEST RADIOGRAPH (PORTABLE SINGLE VIEW AP)Exam Date/Time: 07/05/2017 11:46 AMClinical History: Chest painM: XCP_4Comparison: 11/14/2014RESULT:Lines, tubes, and devices: None.Lungs and pleura: No new inf iltrate or consolidation. Mild right hemidiaphragm elevation. No pleural effusion or pneumothorax is identified.Cardiomediastinal silhouette: Heart size probably normal.-IMPRESSION:NO ACUTE FINDINGS.Barrel Ribs Solderer: SHAKA Transcribe Date/Time: Jul 05 2017 11:48ADictated by : HEMANT STONE MDThiangela examination was interpreted and the report reviewed and electronically signed by: Rohan MONCADA Jul 05 2017 11:49AM [id number] Hospital Vital Signs Date TimeVital SignValuePerforming NjvawlggrQstiurpv25-26-4980 12:15-0400 Diastolic blood mm[Hg]Damien Greenberg MD Work Phone: bon [facility]03-11-2025 12:15-0400Heart rate76 /minDamien Greenberg MD Work Phone: Bts [facility]03-11-2025 12:15-0400 Respiratory rate16 /minDamien Greenberg MD Work Phone: Buq [facility]03-11-2025 12:15-4949NkW9% (BldA) [Mass fraction]97 %Damien Greenberg MD Work Phone: Bbj [facility]03-11-2025 12:15-0400Systolic blood orfdwfjo274 mm[Hg]Damien Greenberg MD Work Phone: Bqz [facility]03-11-2025 11:50-0400Body xegdvlqdkpg92.9 [degF]Damien Greenberg MD Work Phone: Bny [facility]03-11-2025 10:13-0400Body tufkps679.6 cmDamien Greenberg MD Work Phone: bon [facility]03-11-2025 10:13-0400Body mass index (BMI) [Ratio]31.11 kg/d0UopzgpoDamien Greenberg MD Work Phone: Bon [facility]03-11-2025 10:13-0400Body guiarv474.6 kgDamien Greenberg MD Work Phone: Bon [facility]10-29-2024 08:45-0400Body xuvkqffrgkx94.81 [degF]Evans Foster MD Work Phone: FNav[facility]10-29-2024 08:45-0400Diastolic blood zbyshwpp46 mm[Hg]Evans Foster MD Work Phone: [phone] [facility] Hospital Vostu Unbeiw08-43-4655 08:45-0400Heart rate81 /Kamran Foster MD Work Phone: [phone] [facility]10-29-2024 08:45-0400 Respiratory rate16 /Kamran Foster MD Work Phone: [phone] Washington HospitalLat49[facility] HospitalOmwdxe26-61-5849 08:45-0860AnE3% (BldA) [Mass fraction]98 %Evans Foster MD Work Phone: MNav[facility]10-29-2024 08:45-0400Systolic blood kpoblhll366 mm[Hg]Evans Foster MD Work Phone: TNav[facility]10-29-2024 03:39-0400Body mass index (BMI) [Ratio]30.49 kg/l2WvhptsEvans Foster MD Work Phone: [phone] Washington HospitalLat49[facility] HospitalPjhmwm14-99-9684 03:39-0400Body acjqzt08.16 Yolanda Foster MD Work Phone: [phone]-[facility] HospitalLat49[facility] HospitalZbaiwk15-43-7250 17:07-0400Body axlfxp212.3 cmPsamantha Foster MD Work Phone: VCarilion Stonewall Jackson HospitalQeexo Encounters Encounter DateEncounter TypeCare ProviderFacilityStart: 06-19-2025 End: 82-88-3207nrgkhzunsrQkfv J Kenny PT Work Phone: noms [facility] Frephoebe putney memorial hospital - north campustComment on above:Right foot pain (Primary Dx); Arthritis of right footStart: 06-19-2025 End: 96-22-1851Sivxqr flowsheetKyle J Kenny PT Work Phone: noMount [facility] FremontStart: 06-19-2025 End: 25-56-1120Rxexlu flowsheetKyle J Kenny PT Work Phone: noms [facility] FremontStart: 05-16-2025 End: 90-86-4238Uoorha flowsheetAlison L Paul PA Work Phone: noms [facility]Start: 05-16-2025 End: 02-49-8754Bfveww flowsheetAlison L Paul PA Work Phone: noms [facility]ologyStart: 05-16-2025 End: 20-84-7998Wxouga outpatient new 30 minutesAlison L Paul PA Work Phone: noms [facility]ermatologyComment on above:Bacterial folliculitis (Primary Dx); Seborrheic keratosis; Melanocytic nevus of trunk; Inflamed seborrheic keratosisStart: 05-16-2025 End: 99-34-0796xvfmvztegdVGWUGU L PAULNot AvailableStart: 04-19-2025 End: 89-85-0865zyyyeaxlueZHAVJJFKassy Carroll [facility] HospitalStart: 04-19-2025 End: 91-84-2302Ergimqcjnr hospital visit by physicianSamaritan [facility] Laboratory Schedule [facility] LABComment on above:Skin lesions; STD exposure; Screening for HIV without presence of risk factors; Need for hepatitis C screening test; Viral warts, unspecified typeStart: 03-07-2025 End: 23-73-9663pklhdiuuwdSroccpaStephany Bradshaw MDFacility:[facility] Start: 03-02-2025 End: 19-32-8450bajpouqfltZmpajsvStephany Bradshaw MDFacility:[facility] Start: 02-14-2025 End: 67-23-4482uzseqsqftgZSVB L [facility] HospitalStart: 02-14-2025 End: 56-33-3861Dvetbufaxd hospital visit by physicianSam[facility] Ekg ScheduleMNHZ EKG Comment on above:Arthritis of right ankleStart: 01-17-2025 End: 89-44-1536Yzsjowhxz department patient visitTANRICARDO [facility] HospitalStart: 01-03-2025 End: 14-04-5250luigtvewgsZVHDSHLStephany [facility] HospitalStart: 01-03-2025 End: 26-09-0283Qqyhuzbvdb hospital visit by physicianHarpreet Bradshaw MD Work Phone: [facility] MRIComment on above:Osteoarthritis of right midfootNauseaStart: 12-04-2024 End: 36-97-0683yvxwruuqrjSZSDNLicking Memorial Hospitaltart: 12-01-2024 End: 19-90-8110vqlskogtntSFOPFKConrado [facility] HospitalStart: 12-01-2024 End: 14-61-2412Fwpnbotcax hospital visit by physicianChip Buitrago DPM Work Phone: [facility] MRIComment on above:Right foot painStart: 11-09-2024 End: 90-88-1402Kltlrvwov department patient visitSROSHAN Santos [facility] HospitalStart: 82-03-7838Rcsjamqmc for other preprocedural examination DAMIEN Kuhn [facility] HospitalStart: 10-31-2024 End: 19-16-4217aczzvzpozzIONTXXV A PRUITTMercy Lakeside HospitalStart: 10-31-2024 End: 17-53-0934Awjohfj encounter statusDamien Greenberg MD Work Phone: bNav[facility] Work Phone: Start: 10-31-2024 End: 35-69-2159Zsduyantfi hospital visit by Seamus Greenberg MD Work Phone: mthz ORComment on above:Pre-op testing (Primary Dx) Start: 10-30-2024 End: 83-35-3011veqsktqpbvNNTXW C ALFORDJoelleMercy Health Anderson Hospital HospitalStart: 10-30-2024 End: 04-15-0141Mzgpokumvt hospital visit by Soham Bradshaw MD Work Phone: mthz EKGStart: 10-24-2024 End: 17-05-7771ziepzavuuaAKCEVPODown East Community Hospital HospitalStart: 10-24-2024 End: 36-89-6320Fqinqualta hospital visit by Quentin Maya [address] [place] [address] RadiologyComment on above:Impingement of right shoulder; Rotator cuff tendinitis, right; Chronic right shoulder painStart: 09-26-2024 End: 63-32-8585arawfreukhFPCBHEW KATE [facility] HospitalStart: 09-26-2024 End: 15-27-0264Chxuaiehrz hospital visit by Soham Bradshaw MD Work Phone: [facility] LABComment on above:Essential hypertension; History of NC (myocardial infarction); HyperglycemiaStart: 08-11-2024 End: 92-72-6828zktztoagtpUEHOWLicking Memorial Hospitaltart: 06-19-2024 End: 85-29-2687ksvhxvapdjVIHJOXGordy [facility] HospitalStart: 06-19-2024 End: 06-00-5277Napqqqsrmc hospital visit by Cristine Foster MD Work Phone: mthz [facility]ENTERU MED SURGComment on above:Status post total replacement of left hip (Primary Dx)Start: 06-15-2024 End: 87-13-0756mpkfkpnmasRSQYBLGordy Taylor [facility] HospitalStart: 06-15-2024 End: 35-43-0715Sxoqprjoq for other preprocedural examinationEVANS [facility] HospitalStart: 05-29-2024 End: 40-75-3946rfyzulwbwgAUHMAK E HAVENSMerloraine [facility] HospitalStart: 05-17-2024 End: 96-16-0708hlasmpsssmSLCKMEO KATE OVERTONRMercy Lakeside HospitalStart: 05-10-2024 End: 66-03-9572pqcirzcocoBYQNZEO SINGH BRARMercy Lakeside HospitalStart: 04-26-2024 End: 48-47-3152uhnfowiiscJICHCAvita Health Systemtart: 02-28-3302tlasegcliiRJRFJ SONG MDFacility:AMBFPNRStart: 02-14-2021 End: 30-27-6868sxqppyccfyQX NONE LISTED REQUESTFacility:X5Uqgco: 05-07-2020 Patient encounter procedureUNKNOWN PROVIDERFacility:METROHealthStart: 05-07-2020 End: 14-26-2917Fhhvojtgp department patient visitUNKNO PROVIDER Facility:METROHealthStart: 02-01-2018 End: 67-75-1234Sduztdbeo department patient visitFanewton-wellesley hospital HospitalStart: 07-05-2017 End: 30-99-7070Lhgihfxjm department patient visitBethesda North Hospital Procedures DateProcedureProcedure DetailPerforming ClinicianStart: 22-70-5043XBXBKSQKTUU SKIN LESIONAlison Rosalie CEDEÑO Work Phone: Start: 63-14-4010Zyfimkhb hiv-1&hiv-2 single result Harpreet Bradshaw MD Work Phone: Start: 04-19-2025T. PALLIDUM Harmony Bradshaw MD Work Phone: Start: 21-80-1682Sdg routine ecg w/least 12 lds w/i&r Vijaya Del Real [employer] - INTERVENTIONAL RADIOLOGY RN Work Phone: Start: 25-06-9442Oyysn metabolic panel calcium total Vijaya Del Real [employer] - INTERVENTIONAL RADIOLOGY RN Work Phone: Start: 24-51-6393To abdominal real time w/image limitedTanricardo Bradshaw MD Work Phone: Start: 10-31-2024 End: 27-94-2369YckvkodhoqwTlsaiqt A Pruitt MD Work Phone: Start: 12-85-9784Ntu routine ecg w/least 12 lds w/i&r Anne James [employer] - INTERVENTIONAL RADIOLOGY RN Work Phone: Start: 79-30-4806Gcxsx shoulder complete minimum 2 viewsHarpreet Bradshaw MD Work Phone: Start: 16-23-4103Lgqjo panelTanricardo Bradshaw MD Work Phone: Start: 43-25-8384Yscvvfrbysyke metabolic panelHarpreet Bradshaw MD Work Phone: Start: 02-19-6231Ugvkp count hemoglobinEvans Foster MD Work Phone: start: 12-90-1986KFXZHBGFYRY CARE EVALUATION ONLY Evans Foster MD Work Phone: start: 48-70-9071Dmzlh hip unilateral with pelvis 1 Maura Foster MD Work Phone: Plan of Treatment DateCare ActivityDetailAuthorStart: 31-17-5434Tmvufdyoj for malignant neoplasm of colonCarilion Franklin Memorial HospitalStart: 18-12-8094QLiY/Tdap/Td vaccine (3 - Td or Tdap)DTaP/Tdap/Td vaccine (3 - Td or Tdap)[facility] HospitalStart: 05-17-2026 End: 57-05-2136Jvgkqns encounter ylquwuvyj02/25/2026 11:00 AM EDT Office Visit [facility] [address] [place] [address] Pao Miller PA [address] [place] [address] [facility]ologyStart: 04-19-2026 Depression MonitoringDepression MonitoringCarilion Franklin Memorial HospitalStart: 96-61-0139Xghyzlyrvb MonitoringDepression MonitoringCarilion Franklin Memorial Hospital Start: 63-64-7796Gtlenjfwxn ScreenDepression ScreenBon [facility] Start: 75-79-6227Sldzbwjujj A1c szkyyzagetxT2S test (Diabetic or Prediabetic)Bon [facility] HospitalStart: 54-82-9630Eidfa panelLipidsBon [facility] Start: 50-59-4043Ywwlreyjiv ScreenDepression ScreenCarilion Franklin Memorial Hospital Start: 07-25-2025 End: 22-13-1042Zflbmhx encounter aopesatai93/03/2025 3:00 PM EST Office Visit [facility] [address] [place] [address] Pao Miller, PA [address] [place] [address] [facility]atologyStart: 07-17-2025 End: 24-77-7446Lewxaua encounter utcchzygx75/25/2025 10:15 AM EST Office Visit [facility] [address] [place] [address] [address] [place] [address] Harpreet Bradshaw MD [address] [facility] [address] [place] [address] fu htn hld mi.[facility] Primary CareComment on above:fu htn hld mi.Start: 06-28-2025 End: 07-39-7472bfaerqapak52/06/2025 3:30 PM EST Treatment [facility] [address] [place] [phone] Michelle Langley, [employer]OVING CAR[employer]ER [address] [place] [address] [facility]dingtart: 06-26-2025 End: 24-68-8237pmeudqeqlp27/04/2025 3:30 PM EST Treatment [facility] [address] [place] [phone] Michelle Langley, [employer]OVING CAR[employer]ER [address] [place] [address] [facility]tart: 06-21-2025 End: 42-41-9485hvvczhwgzq22/30/2025 3:00 PM EDT Treatment [facility] [address]AL[address]FRE[address] OR[facility] [place] [phone] Josué Cox, PT [address] [place] [address] [facility]art: 06-15-2025 End: 11-90-2741Iygdpkr encounter gmfxgfhyj82/24/2025 11:00 AM EDT Office Visit [facility] [address] [place] [phone] Pao Miller PA [address] [place] [address] [facility]atologyStart: 05-16-2025 End: 91-18-6978Ucwszho encounter zmfblkced31/24/2025 1:40 PM EDT Office Visit [facility] [address] [place] [address] Pao Miller, PA [address] [address] [place] [address] ReinaldoME Thuy DermatologyComment on above:ArrivedStart: 98-81-2366WTUHT-19 Vaccine ( season)COVID-19 Vaccine ( season)[facility]OM HealthcareStart: 43-05-1890Wimyhmxda vaccinationInfluenza Vaccine (#1)[facility] HealthcareStart: 87-53-4052Saedvzszxh MonitoringDepression MonitoringBon [facility] HospitalStart: 04-13-2025 Hemoglobin A1c iysuizeydtdE0B test (Diabetic or Prediabetic)Bon [facility] HospitalStart: 93-43-8108Jnoin panelLipidsBon [facility] HospitalStart: 29-01-6169Ddjbapwxw vaccinationBon [facility] HospitalStart: 03-15-2025 End: 97-60-1515Qhddzmy encounter bewkafdss33/24/2025 1:00 PM EDT Office Visit [facility] [address] [place] [address] Dr [address] [place] [address] Harpreet Bradshaw MD [address] [place] [address] fu htn dep anx.[facility] CareComment on above:fu htn dep anx.Start: 11-28-2024 End: 01-39-9760Aovwele encounter vburaucrj98/08/2025 5:00 PM EDT Office Visit [address] [place] [address] Harpreet Bradshaw MD [address] [place] [address] fu right shoulder.[facility] CareComment on above:fu right shoulder.Start: 10-31-2024 End: 09-19-5874Vhbgjuelu to same day surgery zbwiat7310/31/2024 11:05 AM EDT - 10/31/2024 11:55 AM EDT Surgery [facility] OR [address] [place] [address] Damien Greenberg MD [address] [place] [address], [place] [address] COLORECTAL CANCER SCREENING, NOT HIGH [facility] ORComment on above:COLORECTAL CANCER SCREENING, NOT HIGH RISKStart: 10-31-2024 End: 41-53-9705Ezizs ca scrn not hi rsk [facility] HospitalStart: 69-22-2958Atvyjzfxnv hospital visit by [facility] ORStart: 10-24-2024 End: 49-49-5950Pgjlugu encounter oayfohybk02/04/2025 11:00 AM EST Office Visit [address] [place] [address] Harpreet Bradshaw MD [address] [address] fu htn hld.[facility] CareComment on above:fu htn hld.Start: 08-29-2024 End: 02-40-2586Ncpxqlt encounter ojzxgxkis84/07/2025 11:30 AM EST Office Visit [facility] [address] [place] [address] [address] [place] [address] Harpreet Bradshaw MD 27 [facility] [address] [place] [address] fu htn, hx of [facility] Primary CareComment on above:fu htn, hx of miStart: 02-06-4403ZLCDU-19 Vaccine ( season)COVID-19 Vaccine ( season)Bon [facility] HospitalStart: 06-93-7882HOKIL-19 Vaccine ( season)COVID-19 Vaccine ( season)Bon [facility] HospitalStart: 51-17-0537ITHWT-19 Vaccine ( season)COVID-19 Vaccine ( season)[facility] HospitalStart: 74-34-3334Tcfrwnczo vaccinationFlu vaccine (#1)[facility] HospitalStart: 61-10-1867Fbhcwxnq vaccine (1 of 2)Shingles vaccine (1 of 2)[facility] HospitalStart: 49-82-8868OSyI/Tdap/Td Vaccines (3 - Td or Tdap)DTaP/Tdap/Td Vaccines (3 - Td or Tdap)[facility] HealthcareStart: 52-94-3142Ohepwhyas for malignant neoplasm of colonCarilion [facility] Memorial Hospital Start: 12-71-2431Lexpljdoi B vaccine (1 of 3 - 19+ 3-dose series)Hepatitis B vaccine (1 of 3 - 19+ 3-dose series)Bon [facility] HospitalStart: 1990 Hepatitis B Vaccines (1 of 3 - 19+ 3-dose series)Hepatitis B Vaccines (1 of 3 - 19+ 3-dose series)[facility] HealthcareStart: 09-48-7568Zvbwxhpknsbb 50+ years Vaccine (1 of 2 - PCV)Pneumococcal 50+ years Vaccine (1 of 2 - PCV)[facility]art: 04-41-3845Gaulagbss C screeningHepatitis C screenJohnston Memorial Hospitalart: 37-17-7245DJG screeningHIV screenJohnston Memorial Hospitalart: 18-80-5411Hwpcqxvqenaj 0-64 years Vaccine (1 of 2 - PCV)Pneumococcal 0-64 years Vaccine (1 of 2 - PCV)[facility] Hospitalart: 85-44-1356HVM Vaccines (1 of 1 - Standard series)MMR Vaccines (1 of 1 - Standard series)[facility] Healthcare Start: 34-80-3672Gewremefn for malignant neoplasm of colonNOME Healthcare End: 08-29-1086Fihmjpvit/GC DNA, UrineBon [facility] HospitalComment on above:1 Occurrences starting 04/19/2025 until 5Colon ca scrn not hi rsk ind COLORECTAL CANCER SCREENING, NOT HIGH RISK Encounter for screening colonoscopy [facility] End: 81-52-6279Scfkbvucel and hematocrit, bloodHemoglobin and hematocrit, blood Lab Routine Tomorrow AM for 3 Occurrences starting 06/20/2024 until 06/22/2024, [address] [facility] HospitalComment on above:Tomorrow AM for 3 Occurrences starting 06/20/2024 until 06/22/2024, 1 completed End: 23-32-5735KYMNQYGQ PACU OXYGEN THERAPY PROTOCOLInitiate PACU Oxygen Therapy Protocol Respiratory Care Routine Continuous until discontinued starting 10/31/2024on [facility] [employer] Work Phone: Comment on above:Continuous until discontinued starting 10/31/2024 End: 34-36-6104PW Ankle - right WO contrastBon [facility] HospitalComment on above:1 Occurrences starting 01/03/2025 until 01/03/2025 End: 50-95-7195PZ Foot - right WO contrastCarilion Franklin Memorial HospitalComment on above:1 Occurrences starting 12/01/2024 until 12/01/2024Oxygen therapy [Minimum Data Set]Initiate Oxygen Therapy Protocol Respiratory Care Routine As Needed until discontinued starting 06/19/2024on [facility] on above: As Needed until discontinued starting 06/19/2024 End: 66-31-7314PHH Reflex to Titer and TPPARPR Reflex to Titer and TPPA Lab Routine Skin lesions STD exposure 1 Occurrences starting 04/19/2025 until 5Bon [facility] on above:1 Occurrences starting 04/19/2025 until 04/19/2025 End: 97-49-4784Vqfvnukjk Pallidum AB TP-[facility] on above:Once for 1 Occurrences starting 04/19/2025 until 04/19/2025 Immunizations Immunization DateImmunizationNotesCare VabfmxzeTndotdth49-92-3208WKSPN-76, [place] Vaccine, Vaccine UnspecifiedNathan Buitrago DPM Work Phone: [facility] HospitalLat49[facility] HospitalHtpxob41-55-5303GYUEL-49, [place] Vaccine, Vaccine UnspecifiedNathan Buitrago DPM Work Phone: [facility] HospitalLat49[facility] HospitalOwsguz81-59-3374OWASU-51, [place] Vaccine, Vaccine UnspecifiedNathan Buitrago DPM Work Phone: [facility] HospitalLat49[facility] HospitalBdyhnc57-59-3970yzmcxhd toxoid, reduced diphtheria toxoid, and acellular pertussis vaccine, Leisa Foster MD Work Phone: b[facility]Yo[facility] HospitalAxpitm15-42-3933ndkpyex toxoid, reduced diphtheria toxoid, and acellular pertussis vaccine, Leisa Foster MD Work Phone: b[facility] HospitalLat49[facility] Payers DatePayer CategoryPayerPolicy [id number] [employer] [place]ICAID [place] Member Subscriber Plan / Payer (Effective 2022-Present)Name: GuidoWillie Relation to Subscriber: Self Name: Willie Lora Payer ID: Not on file Type: Not on file Address: [place] [id number] [id number]lxeu [id number] Health Vn[id number] 2.840.1.545558.3.57[id number] 2.0.1.519516.3.57[id number] 2.0.1.362428.3.57[id number] 2.0.1.226959.3.57[id number] 2.0.1.866034.3.57[id number] 2.0.1.896842.3.57[id number] 2.0.1.235815.3.57[id number] 2.840.1.233584.3.57[id number] 2.0.1.531819.3.57[id number] 2.840.1.006650.3.57[id number] 2.840.1.510498.3.57[id number] 2.16.840.1.218457.3.57[id number] 2..840.1.396839.3.57[id number] 2.16.840.1.688367.3.57[id number] 2..840.1.349153.3.57[id number] 2.16.840.1.032942.3.57[id number] 2..840.1.854536.3.57[id number] 2..840.1.354754.3.57[id number] 2..840.1.405495.3.57[id number] 2..840.1.264641.3.57[id number] 2..840.1.031792.3.57[id number] 2..840.1.585656.3.57[id number] 2..840.1.096132.3.57[id number] 2..840.1.835766.3.57[id number] 2..840.1.612358.3.579.2.1259Self-pay Social History DateTypeDetailFacilityStart: 08-23-1988 End: 49-34-8656Ycjyzna smoking status [facility] tobacco dailyBon [facility] Hospitalart: 77-83-3860Lfattvh of tobacco useCigarette SmokerCarilion Franklin Memorial HospitalStart: 06-19-2024 End: 64-65-6682Sdtapkmumh smoked current (pack per day) - Reported0.5Bon [facility] HospitalStart: 06-19-2024 End: 08-31-4295Riujfbo use and exposureSmokeless tobacco non-userCarilion Franklin Memorial HospitalStart: 86-37-3221Wbdxaiyrz beverage intakeCurrent drinker of alcohol (finding)[facility]art: 06-19-2024 End: 07-06-0950ZAB UtilitiesCarilion Franklin Memorial HospitalHas the electric, gas, oil, or water company threatened to shut off services in your home in past 12MoYesJohnston Memorial Hospitalart: 04-91-9449Ysd hard is it for you to pay for the very basics like food, housing, medical care, and heatingNot hard at allCarilion Franklin Memorial Hospital(I/We) worried whether (my/our) food would run out before (I/we) got money to buy more.Never trueCarilion Franklin Memorial HospitalAt any time in the past 12 months, were you homeless or living in mcc [including now]?NoMikey [facility] HospitalStart: 08-80-2483Fte assigned at birthMaleBNaval Medical Center [facility] Start: 23-31-5687Bvkxfi identityIdentifies as male gender (finding)[facility] HospitalStart: 09-26-2024 End: 26-95-5541Ozwbxjdhv beverage intakeEx-drinker (finding)[facility] HospitalStart: 77-75-3729ZhgUdmu (finding)[facility] HospitalTobacco smoking status NHISTobacco smoking consumption unknownM[facility] HealthcareStart: 1971 Sex assigned at birthNot on fileMCKAY-DEE HOSPITAL CENTER HealthcareStart: 69-76-2896Qqclcbg smoking status NHISNever smoked tobaccoNOMS Healthcare Medical Equipment Procedure CodeEquipment CodeEquipment Original TextEquipment IdentifierDates Shell Acet Sz Kk Sri32jx Hip Ti Trabecular Mtl Clus H - [id number] Start: 00-03-2367Jeyv Screw 6.5x30 Self-Tap - [id number]: 11-69-1302Qoog Screw 6.5x30 Self-Tap - [id number]: 06-19-2024 Bone Screw 6.5x50 Self-Tap - [id number]: 64-01-7614Gcltotqtx Vivacit-E Elevated Liner Kk 36 X 56 - [id number]: 06-19-2024 Fitmore Hip Stem B Size 6 - [id number]: 34-51-6350Qlcs Fem Dcm15pk Nk L+0mm 12/14 Tapr Acet Hip Biolox Delt - [id number]: 06-19-2024 Functional Status XrkhBcakxnulflKgepqmMupjvkkd10-55-4943Hmgajdgsyjb anxiety disorder 7 item (JOSE-7)[facility] Clinical Notes 04-26-2024 to 06-19-2025 Note Date & IsdqIldrVodkcdeb01-64-8411 History of Present illness Narrative* Josué Cox, PT - 06/19/2025 4:00 PM EDT Images from the original note were not included. Physical Therapy Physical Therapy Evaluation Visit Patient Name: Willie Lora Today's Date: 06/19/2025 Encounter Diagnoses Name Primary? Right foot pain Yes Arthritis of right foot Visit number: 1 Subjective Willie Lora 55 y.o. male presents to physical [...] Please sign below. Date: documented in this encounterFreeman Heart InstituteGopidibbew75-36-1055 History of Present illness Narrative* DAVIDSON Niño - 05/16/2025 1:40 PM EDT Skin Check Location: Patient requests a full body skin examination Dermatologic history: no history of skin cancer, no history of atypical moles Lesion #1 Location: scrotum Duration: off and on years Quality: denies pain, denies itch Associated symptoms: looks like a wart Treatments: none recently; frozen off years ago Lesion #2 Location: thighs Duration: months Quality: denies pain, denies itch Modifying factors: aggravated by picking Associated symptoms: sores that don't heal Treatments: none New patient. Referred by Harpreet Bradshaw MD. All pertinent medical history, medications, and allergies were reviewed. General Exam: alert, oriented to person, place, and time, normal affect, well appearing Scalp, Examined Right leg Examined Head, Face Examined Left leg Examined Neck Examined Right foot Examined Chest Examined Left foot Examined Back Examined Buttocks Examined Patient kept underwear on Abdomen Examined Digits,nails: Examined Right arm Examined Left arm Examined Lymphatics: Not examined Hands Examined Skin Exam 1. BACTERIAL FOLLICULITIS Right Thigh - Anterior, Scalp Erythematous follicular papules and pustules. Discussed that folliculitis is a common condition in which the hair follicles become infected and can be symptomatic. Recommend patient wash scalp with OTC Dandruff shampoo 1-2 times weekly to help prevent flares. Recommend patient lather the shampoo on and then rinse off a few minutes later. Notify office if failing to improve despite treatment. Recommend patient to apply plain Vaseline to any open healing sores and cover with a bandage to promote healing 2. SEBORRHEIC KERATOSIS (4) Chest (Upper Torso, Anterior), Generalized, Left Arm, Right Arm Stuck on verrucous, variably pigmented papules and plaques. Patient was counseled regarding these benign growths. Removal is normally not necessary, but they may be removed if they are symptomatic or for cosmetic reasons. 3. MELANOCYTIC NEVUS OF TRUNK Generalized Scattered benign appearing, regular brown to light brown melanocytic papules and macules with similar morphology Counseled regarding these benign growths. Rarely, a nevus can develop into malignant melanoma, so any changing nevi should be promptly re-evaluated. 4. INFLAMED SEBORRHEIC KERATOSIS Left Scrotum Inflamed seborrheic keratoses: pink and brown stuck on verrucous scaly papule with surrounding erythema and bloody crust. The patient was informed that symptomatic seborrheic keratoses are benign growths that become inflamed, itchy, tender, traumatized, caught on clothing, or bleed. Symptomatic lesions can be treated with cryotherapy or curretage. Thicker lesions treated with cryotherapy may require more than one treatment. The patient was instructed to notify the office if abnormal redness or tenderness develops atthe treatment site. Cryotherapy today, see procedure note. Diagnosis: Inflamed seborrheic keratosis Indication: Inflamed Consent: Verbal consent was obtained and risks were discussed, including, but not limited to risks of scarring, darker or assembler for puller over hand pigmentary changes, recurrence, incomplete removal and infection. Method: Liquid nitrogen was used to treat the lesion(s) with two 5-10 second freeze-thaw cycles Number of lesions treated: 1 Post-procedure instructions: Instructions were given orally and in writing. The office will be contacted if the lesion fails to resolve despite treatment, or if a side effect develops such as abnormal crusting, scabbing, redness or tenderness Cryotherapy, skin lesion - Left Scrotum Next Visit: 1 month ISK follow up; 1 year skin check documented in this encounterFreeman Heart InstituteRyvcvnobje85-00-9840 [facility] Reason for cardiology visit: Follow-up on coronary artery disease, hypertension and hyperlipidemia Chief Complaint: Dyspnea on exertion HPI: 08/11/2024 Patient is here today for follow-up visit. He had left hip surgery without any problem. He continues to have exertional dyspnea. He denies any chest pain at rest or with exertion. Denies orthopnea or paroxysmal nocturnal dyspnea or palpitations or legs edema. He states that he had side effects to Bystolic causing a memory issue and lack of concentration and he would like to stop it. 04/26/2024 Willie Lora is a 54 y.o. male with history of coronary artery disease prior myocardial infarction and angioplasty with stent placement of the left circumflex artery 08/03/2011 in [facility] in [place]. Also he has history of hypertension, hyperlipidemia, tobacco and drug abuse. The patient states that he was in drug rehab facility in [place] in 2010 when he had heartburn and tooth ache and he ended up having NC and cardiac catheterization and angioplasty as discussed above. He followed up with cardiology in [place] for 1 year then he was out of insurance till 2014 when he started to follow with a assayer helper and he followed up with her for 3 years during which he was taking his medications. Again he went out of insurance and out of medications and he just went back on insurance and he restarted medications April 13, 2024. 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 He denies any chest pain at rest or with exertion. He admits exertional dyspnea which got better since he quit Celebrex. He denies orthopnea or paroxysmal nocturnal dyspnea or dizziness or palpitations or legs edema or leg discomfort on exertion. He denies snoring however he feels sleepy around 3 PM and he can take a nap. He is a smoker for a long time 1 pack/day since he was 17-year-old and he cut down to half pack per day since his NC in 2010. He used to drink alcohol every day since he was 19 till he was 36 and now he drinks probably several beers in addition to 1-2 shots once a month. He did in the past cocaine, marijuana and heroine. He went to detox program. Currently he smokes marijuana and sometimes he chews marijuana Gummies. No cocaine or heroin or other drugs. Family history: Many members in his family has coronary artery disease. ROS: All systems were reviewed and they were negative except for the positive findings noted above in the history Past Medical History He has a past medical history of Blindness of left eye, Coronary artery disease, Hyperlipidemia, Hypertension, and Myocardial infarction (CMS/HCC). Surgical History He has a past surgical history that includes Cardiac catheterization; Coronary stent placement; and Replacement total hip lateral position. Social History He reports that he has been smoking cigarettes. He has a 18 pack-year smoking history. He has never used smokeless tobacco. He reports current alcohol use of about 7.0 standard drinks of alcohol per week. He reports current drug use. Drug: Marijuana. Family History Family History Problem Relation Name Age of Onset Lung cancer Mother Heart attack Father Heart attack Maternal Grandmother Heart attack Paternal Grandfather Stroke Paternal Grandfather Allergies Patient has no known allergies. Medications Current Outpatient Medications: aspirin 81 mg EC tablet, Take 81 mg by mouth in the morning., Disp: , Rfl: celecoxib (CeleBREX) 100 mg capsule, Take 100 mg by mouth in the morning., Disp: , Rfl: losartan-hydrochlorothiazide (Hyzaar) 100-12.5 mg tablet, Take 1 tablet by mouth in the morning., Disp: , Rfl: losartan-hydrochlorothiazide (Hyzaar) 50-12.5 mg tablet, Take 2 tablets by mouth in the morning., Disp: , Rfl: omeprazole (PriLOSEC) [address] capsule, Take 20 mg by mouth before breakfast., Disp: , Rfl: ondansetron ODT (Zofran-ODT) 4 mg disintegrating tablet, 4 mg every 8 (eight) hours if needed., Disp: , Rfl: amLODIPine (Norvasc) 10 mg tablet, Take 1 tablet (10 mg) by mouth in the morning. (Patient not taking: Reported on 12/04/2024), Disp: 30 tablet, Rfl: 11 atorvastatin (Lipitor) 20 mg tablet, Take 1 tablet by mouth in the morning., Disp: , Rfl: Last Recorded Vitals Visit Vitals BP 111/77 (BP Location: Right arm, Patient Position: Sitting) Pulse 85 Ht 1.778 m (5' 10 ) Wt 103 kg (227 lb) SpO2 97% BMI 32.57 kg/m??? Smoking Status Every Day BSA 2.26 m??? Physical Examination: GENERAL: alert and oriented x3, well developed, in no acute distress. HEAD: atraumatic, normocephalic. EYES: YAQUELIN, EOMI. NECK: trachea midline, no JVD present, no carotid bruits present. CARDIAC: S1, S2 present. RRR. No murmur, rubs, or gallops. RESPIRATORY: CTAB, no increased effort of breathing, no rales, rhonchi, or wheezing. ABDOMEN: soft, nonte (more content not included)...[facility]03-11-[facility] History of Present illness Narrative* Dorcas Tamayo, RN - 10/31/2024 12:37 PM EDT Discharge Criteria Inpatients must meet Criteria 1 through 7. All other patients are either YES or N/A. If a NO is chosen then Anesthesia or Surgeon must be notified. 1. Minimum 30 minutes after last dose of sedative medication. Yes 2. Systolic BP between 90 - 160. Diastolic BP between 60 - 90. Yes 3. Pulse between 60 - 120 Yes 4. Respirations between 8 - 25. Yes 5. SpO2 92% - 100%. Yes 6. Able to cough and swallow or return to baseline function. Yes 7. Alert and oriented or return to baseline mental status. Yes 8. Demonstrates controlled, coordinated movements, ambulates with steady gait, or return to baseline activity function. Yes 9. Minimal or no pain or nausea, or at a level tolerable and acceptable to patient. Yes 10. Takes and retains oral fluids as allowed. Yes 11. Procedural / perioperative site stable. Minimal or no bleeding. Yes 12. If GI endoscopy procedure, minimal or no abdominal distention or passing flatus. Yes 13. Written discharge instructions and emergency telephone number provided. Yes 14. Accompanied by a responsible adult. Yes * Anne James APRN - CNP - 10/30/2024 10:47 AM EDT EKG reviewed with Remington ZUNIGA. Patient contacted and he continues to deny any further chest pain. Okay to proceed. * Anne James APRN - CNP - 10/27/2024 2:44 PM EST Case reviewed with anesthesia. It was noted that patient saw his PCP on 10/24/2024 with complaint of chest pain. No follow up was noted. Instrumentation Designer contacted patient and he states he did not have time to go to the ED, he states he went home and took aspirin and the pain went away. States I think it was just muscle. Patient is agreeable to completing an EKG on Wednesday, 10/30 prior to starting his bowel prep. Instrumentation Designer will contact patient again on Wednesday. * Sera Castellanos RN - 10/23/2024 3:08 PM EST Patient states they received their colon prep instructions and home medications that are to be taken on the day of their procedure with a small sip of water only, from the physician's office. documented in this encounterBon [facility] Hospital Discharge instructions* Discharge Instructions* Dorcas Tamayo RN - 10/31/2024 11:54 AM EDT 1) You colon looks normal. No polyps or other problems. 2) In the absence of any new symptoms or change in family history you should consider a repeat colonoscopy in 10 years for colon cancer screening. 3) Follow up with me as desired. Discharge Instructions for Colonoscopy Colonoscopy is a visual exam of the lining of the large intestine, also called the bowel or colon, with a colonoscope. A colonoscope is a flexible tube with a light and a viewing device. It allows the doctor to view the inside of the colon through a tiny video camera. Colonoscopy is performed for many reasons: unexplained anemia , pain, diarrhea , bloody stools, cancer screening, among many other reasons. Complications from a colonoscopy are rare. Some possible serious complications include perforated bowel (which might require surgery) and bleeding (which could require blood transfusion ). Minor complications include bloating, gas, and cramping that can last for 1-2 days after the procedure. Because air is put into your colon during the procedure, it is normal to pass large amounts of air from your rectum. You may not have a bowel movement for 1-3 days after the procedure. What You Will Need Someone to drive you home after the procedure Steps to Take Home Care Rest when you get home. Because the sedative will make you drowsy, don't drive, operate machinery, or make important decisions the day of the procedure. Feelings of bloating, gas, or cramping may persist for 24 hours. Diet Try sips of water first. If tolerated, resume regular diet or the diet recommended by your physician. Do not drink alcohol for 24 hours. Physical Activity You may return to work tomorrow. Do not drive, operate heavy machinery, or do activities that require coordination or balance until tomorrow Otherwise, return to your normal routine as soon as you are comfortable to do so, which is usually the next day after the procedure. Medications When taking medications, it's important to: Take your medication as directednot more, not less, not at a different time. Do not stop taking them without consulting your healthcare provider. Don't share them with anyone else. Know what effects and side effects to expect, and report them to your healthcare provider. If you are taking more than one drug, even if it is an [id number] medication, herb, or dietary supplement, be sure to check with a physician or pharmacist about drug interactions. Plan ahead for refills so you don't run out. Follow-up You will be called with your results usually within a week or We will have you make a follow up appointment You are always welcome to follow up in person if you have questions or there are other issue you would like addressed Call Your Doctor If Any of the Following Occurs Monitor your recovery once you leave the hospital. As soon as you have a problem, alert your doctor. If any of the following occur, call your doctor or come to the emergency room Bleeding from your rectum; notify your doctor if you pass a teaspoonful or more of blood Black, tarry stools Severe abdominal pain Hard, swollen abdomen Signs of infection, including fever or chills Inability to pass gas or stool Coughing, shortness of breath, chest pain, severe nausea or vomiting In case of an emergency, call 911 immediately. SAME DAY SURGERY DISCHARGE INSTRUCTIONS 1. Do not drive or operate hazardous machinery for 24 hours. 2. Do not make important personal or business decisions for 24 hours. 3. Do not drink alcoholic beverages for 24 hours. 4. Do not smoke tobacco products for 24 hours. 5. Eat light foods (Jell-O, soups, etc....) and drink plenty of fluids (water, Sprite, etc...) up to 8 glasses per day, as you can tolerate. 6. Limit your activities for 24 hours. Do not engage in heavy work until your surgeon gives you permission. 7. Call your surgeon for any questions regarding your surgery. 8. Patient should not be left alone for 12-24 hours following surgical procedure. COLONOSCOPY DISCHARGE INSTRUCTIONS: It's normal to have a feeling of fullness or mild cramping in your abdomen afterwards due to air that is put into your bowel during the procedure. Mild activities such as walking will help you pass the air. You may resume your regular diet. You will receive a letter or phone call with your test results in 2 weeks. If you have not receiveda letter or a phone call in 2 weeks please call the office for your results. CALL THE DOCTOR IF YOU HAVE: Chest pain or trouble breathing. Bleeding from your rectum, vomiting or spitting up of blood that is more than a few streaks or red or black stools A fever above 101F or if you have chills Pain that is worse or different than any pain you had before the procedure Nausea or vomiting that lasts for more than 2 hours. If symptoms are to severe call 911 or go to the nearest Emergency Room. SAME DAY SURGERY DISCHARGE INSTRUCTIONS 1. Do not drive or operate hazardous machinery for 24 hours. 2. Do not make important personal or business decisions for 24 hours. 3. Do not drink alcoholic beverages for 24 hours. 4. Do not smoke tobacco products for 24 hours. 5. Eat light foods (Jell-O, soups, etc....) and drink plenty of fluids (water, Sprite, etc...) up to 8 glasses per day, as you can tolerate. 6. Limit your activities for 24 hours. Do not engage in heavy work until your surgeon gives you permission. 7. Call your surgeon for any questions regarding your surgery. 8. Patient should not be left alone for 12-24 hours following surgical procedure. COLONOSCOPY DISCHARGE INSTRUCTIONS: It's normal to have a feeling of fullness or mild cramping in your abdomen afterwards due to air that is put into your bowel during the procedure. Mild activities such as walking will help you pass the air. You may resume your regular diet. CALL THE DOCTOR IF YOU HAVE: Chest pain or trouble breathing. Bleeding from your rectum, vomiting or spitting up of blood that is more than a few streaks or red or black stools A fever above 101F or if you have chills Pain that is worse or different than any pain you had before the procedure Nausea or vomiting that lasts for more than 2 hours. If symptoms are to severe call 911 or go to the nearest Emergency Room. documented in [facility]Bon [facility] Reason for cardiology visit: Follow-up on coronary artery disease, hypertension and hyperlipidemia Chief Complaint: Dyspnea on exertion HPI: 08/11/2024 Patient is here today for follow-up visit. He had left hip surgery without any problem. He continues to have exertional dyspnea. He denies any chest pain at rest or with exertion. Denies orthopnea or paroxysmal nocturnal dyspnea or palpitations or legs edema. He states that he had side effects to Bystolic causing a memory issue and lack of concentration and he would like to stop it. 04/26/2024 Willie Lora is a 54 y.o. male with history of coronary artery disease prior myocardial infarction and angioplasty with stent placement of the left circumflex artery 08/03/2011 in [facility] in [place]. Also he has history of hypertension, hyperlipidemia, tobacco and drug abuse. The patient states that he was in drug rehab facility in [place] in 2010 when he had heartburn and tooth ache and he ended up having NC and cardiac catheterization and angioplasty as discussed above. He followed up with cardiology in [place] for 1 year then he was out of insurance till 2014 when he started to follow with a assayer helper and he followed up with her for 3 years during which he was taking his medications. Again he went out of insurance and out of medications and he just went back on insurance and he restarted medications April 13, 2024. 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 He denies any chest pain at rest or with exertion. He admits exertional dyspnea which got better since he quit Celebrex. He denies orthopnea or paroxysmal nocturnal dyspnea or dizziness or palpitations or legs edema or leg discomfort on exertion. He denies snoring however he feels sleepy around 3 PM and he can take a nap. He is a smoker for a long time 1 pack/day since he was 17-year-old and he cut down to half pack per day since his NC in 2010. He used to drink alcohol every day since he was 19 till he was 36 and now he drinks probably several beers in addition to 1-2 shots once a month. He did in the past cocaine, marijuana and heroine. He went to detox program. Currently he smokes marijuana and sometimes he chews marijuana Gummies. No cocaine or heroin or other drugs. Family history: Many members in his family has coronary artery disease. ROS: All systems were reviewed and they were negative except for the positive findings noted above in the history Past Medical History He has a past medical history of Blindness of left eye, Coronary artery disease, Hyperlipidemia, Hypertension, and Myocardial infarction (CMS/HCC). Surgical History He has a past surgical history that includes Cardiac catheterization; Coronary stent placement; and Replacement total hip lateral position. Social History He reports that he has been smoking cigarettes. He has a 18 pack-year smoking history. He has never used smokeless tobacco. He reports current alcohol use of about 7.0 standard drinks of alcohol per week. He reports current drug use. Drug: Marijuana. Family History Family History Problem Relation Name Age of Onset Lung cancer Mother Heart attack Father Heart attack Maternal Grandmother Heart attack Paternal Grandfather Stroke Paternal Grandfather Allergies Patient has no known allergies. Medications Current Outpatient Medications: aspirin 81 mg EC tablet, Take 81 mg by mouth in the morning., Disp: , Rfl: atorvastatin (Lipitor) 20 mg tablet, Take 1 tablet by mouth in the morning., Disp: , Rfl: celecoxib (CeleBREX) 100 mg capsule, Take 100 mg by mouth in the morning., Disp: , Rfl: losartan-hydrochlorothiazide (Hyzaar) 50-12.5 mg tablet, Take 2 tablets by mouth in the morning., Disp: , Rfl: nebivolol (Bystolic) 5 mg tablet, Take 1 tablet (5 mg) by mouth in the morning., Disp: 90 tablet, Rfl: 3 Last Recorded Vitals Visit Vitals BP 162/90 (BP Location: Left arm, Patient Position: Sitting) Pulse 83 Ht 1.778 m (5' 10 ) Wt 102 kg (224 lb) SpO2 97% BMI 32.14 kg/m??? Smoking Status Every Day BSA 2.24 m??? Physical Examination: GENERAL: alert and oriented x3, well developed, in no acute distress. HEAD: atraumatic, normocephalic. EYES: YAQUELIN, EOMI. NECK: trachea midline, no JVD present, no carotid bruits present. CARDIAC: S1, S2 present. RRR. No murmur, rubs, or gallops. RESPIRATORY: CTAB, no increased effort of breathing, no rales, rhonchi, or wheezing. ABDOMEN: soft, nontender, nondistended. EXTREMITIES: no lower extremity edema,. No rash/skin discoloration present. NEURO: strength/sensation equal and symmetric in bilateral upper and lower extremities. PSYCH: appropriate mood, affect, and judgement. Labs: 04/13/2024 Cholesterol 251, HDL 34, triglyceride 537, LDL cannot be calculated due to high triglyceride Direct LDL 14 (more content not included)...[facility] 06-20-2024 History of Present illness Narrative* Elly Meadows RN - 06/20/2024 2:14 PM EDT Reviewed discharge instructions with patient and friend Marcus. Patient aware of need to diamond picker prescriptions. Reviewed new medications and side effects to monitor for. Reviewed home medications and when next dose is due. Instructed to ambulate with use of walker as instructed by Physical Therapy. No driving until cleared by Physician, patient instructed to shower with use of CHG soap on post op day #4 as long as waterproof dressing remains intact. Bottle of CHG soap sent home with patient. Reviewed s/s of infection to monitor for and provided Dr. Foster phone number in case of need. Educational handouts given on Preventing Surgical Site infections and Hip Replacement Surgery: Post-op. Questions answered. Verbalizes understanding. Copy of discharge instructions given to patient. * Kenn Kate PTA - 06/20/2024 1:36 PM EDT Physical Therapy Facility/Department: [facility] MED SURG Daily Treatment Note NAME: Willie Lora : 1970 Date of Service: 06/20/2024 Discharge Recommendations: Continue to assess pending progress, Home with Home health PT, Outpatient PT Patient Diagnosis(es): The encounter diagnosis was Status post total replacement of left hip. Assessment Assessment: Pt. ambulated 30ftx2 with WW< CGA for safety with L knee hyperextended. Pt. had one instance with ambulation of L knee giving but able to maintain balance with CGA/ Min A. Ascended anddescended 2 steps x2 with L HR and R sided cane use with CGA for safety. Reviewed HEp with good understanding from pt. Transfers: CGA Activity Tolerance: Patient tolerated treatment well Equipment Needed: No Plan Physical Therapy Plan General Plan: 2 times a day 7 days a week Current Treatment Recommendations: Strengthening;ROM;Balance training;Transfer training;Endurance training;Functional mobility training;IADL training;ADL/Self- care training;Gait training;Stair training;Pain management;Neuromuscular re- education;Manual;Home exercise program;Safety education & tra ining;Patient/Caregiver education & training;Modalities;Positioning;Therapeutic activities Restrictions Restrictions/Precautions Restrictions/Precautions: Fall Risk, Weight Bearing, General Precautions Lower Extremity Weight Bearing Restrictions Left Lower Extremity Weight Bearing: Partial Weight Bearing Partial Weight Bearing Percentage Or Pounds: 40% Subjective Subjective Subjective: Pt. in chair upon arrival, agreeable to therapy at this time. Pain: 6/10 L hip Orientation Overall Orientation Status: Within Functional Limits Cognition Overall Cognitive Status: WFL Objective Bed Mobility Training Bed Mobility Training: No Transfer Training Transfer Training: Yes Overall Level of Assistance: Contact-guard assistance;Assist X1 Interventions: Verbal cues Sit to Stand: Contact-guard assistance;Assist X1 Stand to Sit: Contact-guard assistance;Assist X1 Gait Training Right Side Weight Bearing: Full Left Side Weight Bearing: Partial (%) Gait Gait Training: Yes Left Side Weight Bearing: Partial (%) Right Side Weight Bearing: Full Overall Level of Assistance: Contact-guard assistance;Assist X1 Distance (ft): 60 Feet Assistive Device: Walker, rolling;Gait belt Interventions: Verbal cues Rail Use: Left Stairs - Level of Assistance: Assist X1;Contact-guard assistance Number of Stairs Trained: 2 Safety Devices Type of Devices: All fall risk precautions in place;Left in bed;Nurse notified;Call light within reach (HERRERA at bedside with pt.) Restraints Restraints Initially in Place: No Goals Short Term Goals Time Frame for Short Term Goals: 10 days Short Term Goal 1: Patient will ambulate 50' with FWW, supervision, maintaining WB precautions. Short Term Goal 2: Patient will perform bed mobility tasks and transfers with NC Short Term Goal 3: Patient will tolerate 20-30 minutes of therex/act to improve endurance for ADLs. Short Term Goal 4: Patient will negotiate 4 steps using one hand rail for a safe return home. Patient Goals Patient Goals : Be able to return home Education Patient Education Education Given To: Patient Education Provided: Role of Therapy;Plan of Care;Transfer Training Education Method: Verbal Barriers to Learning: None Education Outcome: Verbalized understanding Therapy Time Individual Concurrent Group Co-treatment Time In 1240 Time Out 1320 Minutes 40 Kenn Kate PTA * Evans Foster MD - 06/20/2024 11:31 AM EDT Department of Orthopedic Surgery Progress Note POD: 1 Subjective: Systemic or Specific Complaints:No Complaints Objective: Patient Vitals for the past 24 hrs: BP Temp Temp src Pulse Resp SpO2 Height Weight 06/20/24 0845 (!) 152/71 97.8 F (36.6 C) Temporal 81 16 98 % -- -- 06/20/24 0339 -- -- -- -- -- -- -- 99.2 kg (218 lb 9.6 oz) 06/20/24 0336 135/83 -- -- 74 -- -- -- -- 06/20/24 0056 (!) 139/94 -- -- 75 -- -- -- -- 06/19/24 2328 (!) 153/80 -- -- 77 -- -- -- -- 06/19/24 2224 (!) 150/83 -- -- 81 -- -- -- -- 06/19/24 2112 (!) 149/75 -- -- 79 -- -- -- -- 06/19/24 1846 (!) 156/84 97.3 F (36.3 C) Temporal 77 16 97 % -- -- 06/19/24 1707 -- -- -- -- -- -- 1.803 m (5' 11 ) -- 06/19/24 1700 136/88 97.1 F (36.2 C) Temporal 66 16 98 % -- -- 06/19/24 1615 138/88 -- -- 68 16 94 % -- -- 06/19/24 1600 (!) 156/90 -- -- 72 16 94 % -- -- 06/19/24 1555 133/77 -- -- 69 16 94 % -- -- 06/19/24 1550 119/76 -- -- 64 20 93 % -- -- 06/19/24 1545 110/66 97 F (36.1 C) Temporal 63 20 94 % -- -- In: 4150 [P.O.:3200; I.V.:950] Out: 900 In: 4150 Out: 900 [Urine:600] General: alert, appears stated age, and cooperative Wound: Wound clean and dry no evidence of infection. Motion: Painless Range of Motion in affected extremity DVT Exam: No evidence of DVT seen on physical exam. Additional exam: left hip wound intact Data Review CBC: Lab Results Component Value Date/Time WBC 9.3 05/17/2024 11:23 AM RBC 5.22 05/17/2024 11:23 AM HGB 12.8 06/20/2024 05:45 AM HCT 37.3 06/20/2024 05:45 AM PLT 293 05/17/2024 11:23 AM Assessment: left total hip. Plan: 1: Home today, RTO 2 weeks 2: Continue Deep venous thrombosis prophylaxis 3: Continue Pain Control EVANS FOSTER MD, MD * Julia Brandt, CLAUDIA, LD - 06/20/2024 8:15 AM EDT Nutrition Assessment Type and Reason for Visit: Initial Nutrition Recommendations/Plan: Continue current diet. Encourage protein foods to aid healing needs. Malnutrition Assessment: Malnutrition Status: Insufficient data Nutrition Assessment: Increased nutrient needs r/t acute injury/trauma aeb elective L total hip replacement surgery with healing needs. Altered nutrition related labs r/t endocrine dysfunction aeb A!C 5.8. Encourage protein foods and consistent meals to aid glycemic control. Multiple failed attempts to visit with Pt, with other staff members. Nutrition Related Findings: no edema. No bowel sound data. Wound Type: Surgical Incision Current Nutrition Therapies: ADULT DIET; Regular Anthropometric Measures: Height: 180.3 cm (5' 11 ) Current Body Wt: 99.2 kg (218 lb 11.1 oz) BMI: 30.5 Hematology: Recent Labs 06/20/24 0545 HGB 12.8* HCT 37.3* Chemistry:No results for input(s): NA , K , CL , CO2 , GLUCOSE , BUN , CREATININE , MG , CALCIUM , CAION , PHOS in the last 72 hours. No results for input(s): LABALBU , LABA1C , G9RZMAX , FT4 , TSH , AST , ALT , LDH , GGT , ALKPHOS , BILITOT , AMMONIA , AMYLASE , LIPASE , LACTATE , CHOL , TRIG , HDL , LDLDIRECT , BNP , TROPONINI , CKTOTAL in the last 72 hours. Invalid input(s): PROT , F7FYKTM , LDLCALC , LABVLDL Nutrition Diagnosis: Increased nutrient needs related to acute injury/trauma as evidenced by wounds Nutrition Interventions: Food and/or Nutrient Delivery: Continue Current Diet Nutrition Education/Counseling: No recommendation at this time Coordination of Nutrition Care: Continue to monitor while inpatient Plan of Care discussed with: no one Goals: Goals: Meet at least 75% of estimated needs Nutrition Monitoring and Evaluation: Behavioral-Environmental Outcomes: None Identified Food/Nutrient Intake Outcomes: Food and Nutrient Intake Physical Signs/Symptoms Outcomes: Biochemical Data, Skin, Weight Discharge Planning: Continue current diet [address]ULIA [address], JOHN Contact: [id number] * Kenn Bender - 06/20/2024 6:36 AM EDT Patient up to the bathroom with instructions to pull the bathroom light once he is done. Instrumentation Designer sethis chair up to sit in once done in the bathroom. Instrumentation Designer moved patients belongings off to the side and got a big whiff of marijuana. Instrumentation Designer opened drawstring bag and saw a container of leafy looking substance. Instrumentation Designer placed patients belongings in the cabinet away from patients reach. Will educate him once out of the bathroom. * Komal Edmondson RCP - 06/19/2024 9:57 PM EDT RESPIRATORY ASSESSMENT PROTOCOL Patient Name: Willie Lora Room#: 0328/0328-01 : 1970 Admitting diagnosis: Primary osteoarthritis of left hip [M16.12] Status post total replacement of left hip [Z96.642] Medical History: Past Medical History: Diagnosis Date Heart attack (HCC) 2011 Hyperlipidemia Hypertension PATIENT ASSESSMENT LABORATORY DATA Hematology: Lab Results Component Value Date/Time WBC 9.3 05/17/2024 11:23 AM RBC 5.22 05/17/2024 11:23 AM HGB 16.6 05/17/2024 11:23 AM HCT 46.8 05/17/2024 11:23 AM PLT 293 05/17/2024 11:23 AM Chemistry: No results found for: PHART , FTB4KQL , PO2ART , M3OMCOQP , GIV0XYK , PBEA , NBEA VITALS Pulse: 79 Respirations: 16 BP: (!) 149/75 SpO2: 97 % O2 Device: None (Room air) Temp: 97.3 F (36.3 C) SKIN COLOR [x] Normal [] Pale [] Dusky [] Cyanotic RESPIRATORY PATTERN [x] Normal [] Dyspnea [] Jose-Castano [] Kussmaul [] Biots AMBULATORY [] Yes [] No [x] With Assistance PEAK FLOW Predicted: Personal Best: Patient Acuity 0 1 2 3 4 Score Level of Consciousness (LOC) [x] Alert & Oriented or Pt normal LOC [] Confused;follows directions [] Confused & uncooper-ative [] Obtunded [] Comatose 0 Respiratory Rate (RR) [x] Reg. rate & pattern. 12 - 20 bpm [] Increased RR. Greater than 20 bpm [] SOB w/ exertion or RR greater than 24 bpm [] Access- ory muscle use at rest. Abn. resp. [] SOB at rest. 0 Bilateral Breath Sounds (BBS) [x] Clear [] Diminish-ed bases [] Diminish-ed t/o, or rales [] Sporadic, scattered wheezes or rhonchi [] Persistentwheezes and, or absent BBS 0 Cough [x] Strong, effective, & non-prod. [] Effective & prod. Less than 25 ml (2 TBSP) over past 24 hrs [] Ineffective & non-prod to less than 25 ML over past 24 hrs [] Ineffective and, or greater than 25 ml sputum prod. past 24 hrs. [] Nonspon- taneous; Requires suctioning 0 Pulmonary History (PULM HX) [] No smoking and no chronic pulmonary history [] Former smoker. Quit over 12 mos. ago [x] Current smoker or quit w/ in 12 mos [] Pulm. History and, or 20 pk/yr smoking hx [] Admitted w/ acute pulm. dx and, or has been admitted w/ pulm. dx 2 or more times over past 12 mos 2 Surgical History this Admit (SURG HX) [] No surgery [x] General surgery [] Lower abdominal [] Thoracic or upper abdominal [] Thoracic w/ pulm. disease 1 Chest X-Ray (CXR)/CT Scan [x] Clear or not applicable [] Not available [] Atelectasis or pleural effusions [] Localized infiltrate or pulm. edema [] Con-solidated Infiltrates, bilateral, or in more than 1 lobe 0 TOTAL ACUITY: 3 CARE PLAN If Acuity Level is 2, 3, or 4 in any of the following: [] BILATERAL BREATH SOUNDS (BBS) [x] PULMONARY HISTORY (PULM HX) [] Respiratory Rate (RR) Goal: Improve respiratory functions in patients with airway disease and decrease WOB [x] AEROSOL PROTOCOL Total Acuity: 14-28 [] Secondary Assessment in 24 hrs Total Acuity: 9-13 [] Secondary Assessment in 24 hrs Total Acuity: 4-8 [] Secondary Assessment in 24 hrs Total Acuity: 0-3 [x] Secondary Assessment in 48 hrs HHN AEROSOL THERAPY with [physician-ordered bronchodilator(s)] q 4 & Albuterol PRN q2 hrs. Breath-Actuated Neb if BBS Acuity = 4, and pt. can use MP. Notify physician if condition deteriorates. HHN AEROSOL THERAPY with [physician-ordered bronchodilator(s)] QID and Albuterol PRN q4 hrs. Breath-Actuated Neb if BBS Acuity = 4, and pt. can use MP. Notify physician if condition deteriorates. MDI THERAPY with 2 actuations of [physician-ordered bronchodilator(s)] via spacer TID Albuterol and PRN q4 hrs. If unable to utilize MDI: HHN [physician-ordered bronchodilator(s)] TID and Albuterol PRN q4 hrs. Notify physician if condition deteriorates. MDI THERAPY with [physician-ordered bronchodilator(s)] via spacer TID PRN. If unable to utilize MDI: HHN [physician-ordered bronchodilator(s)] TID PRN. Notify physician if condition deteriorates. If Acuity Level is 2, 3, or 4 in any of the following: [] COUGH [] SURGICAL HISTORY (SURG HX) [] CHEST XRAY (CXR) Goal: Improvement in sputum mobilization in patients with ineffective airway clearance. Reverse atelectasis. [] Bronchopulmonary Hygiene Protocol Total Acuity: 14-28 [] Secondary Assessment in 24 hrs Total Acuity: 9-13 [] Secondary Assessment in 24 hrs Total Acuity: 4-8 [] Secondary Assessment in 24 hrs Total Acuity: 0-3 [] Secondary Assessment in 48 hrs METANEB QID with [physician-ordered bronchodilator(s)] if CXR Acuity = 4; otherwise: PD&P, Oscillatory Therapy, or Vest QID & PRN AND PEP QID & PRN NT Sxn PRN for ineffective cough METANEB QID with [physician-ordered bronchodilator(s)] if CXR Acuity = 4; otherwise: PD&P, Oscillatory Therapy or Vest QID & PRN AND PEP QID & PRN NT Sxn PRN for ineffective cough PD&P, Oscillatory Therapy, or Vest TID & PRN AND PEP TID & PRN Instruct patient to self-perform IS q1hr WA If Acuity Level is 2 or above in the following: [] PULMONARY HISTORY (PULM HX) Goal: Assist patient in quitting smoking to slow or stop the progression of lung disease. [] Smoking Cessation Protocol SMOKING CESSATION EDUCATION provided according to policy RT_201: (siena with an X) ____Yes ____ No ____ NA Smoking Cessation Booklet given: ____Yes ____No ____Patient Refused * Noemí Low RN - 06/19/2024 9:32 PM EDT Patient stood at bedside with 2 staff with walker at bedside. Patient took a few steps at bedside. Patient reports that numbness in LLE is still persisting. Patient sitting at the side of the bed at this time per request. [place] x2 tablets given for 7/10 pain at this time. Water pitcher refilled. Ice pack refilled. * Kenn Bender - 06/19/2024 4:49 PM EDT Perfect serve consult sent to Dr Jackson at this time * Edu Juan RN - 06/19/2024 4:15 PM EDT Discharge Criteria Inpatients must meet Criteria 1 through 7. All other patients are either YES or N/A. If a NO is chosen then Anesthesia or Surgeon must be notified. 1. Minimum 30 minutes after last dose of sedative medication. Yes 2. Systolic BP between 90 - 160. Diastolic BP between 60 - 90. Yes 3. Pulse between 60 - 120 Yes 4. Respirations between 8 - 25. Yes 5. SpO2 92% - 100%. Yes 6. Able to cough and swallow or return to baseline function. Yes 7. Alert and oriented or return to baseline mental status. Yes 8. Demonstrates controlled, coordinated movements, ambulates with steady gait, or return to baseline activity function. N/A 9. Minimal or no pain or nausea, or at a level tolerable and acceptable to patient. N/A 10. Takes and retains oral fluids as allowed. N/A 11. Procedural / perioperative site stable. Minimal or no bleeding. N/A 12. If GI endoscopy procedure, minimal or no abdominal distention or passing flatus. N/A 13. Written discharge instructions and emergency telephone number provided. N/A 14. Accompanied by a responsible adult. N/A * Sera Castellanos RN - 06/14/2024 4:12 PM EDT Patient instructed on the pre-operative, intra-operative, and post-operative process. Patient instructed on NPO status. Medication instructions and pre operative instruction sheet reviewed with the patient. CHG skin prep instructions reviewed with patient. documented [facility] course Narrative* Evans Foster MD - 06/20/2024 11:34 AM EDT Physician Discharge Summary Patient ID: Willie Lora [id number] 1970 Admit date: 06/19/2024 Discharge date and time: Admitting Physician: Evans Foster MD Primary Care Physician: Harpreet Bradshaw MD Primary Discharge Diagnoses: DJD left Hip Additional Diagnoses: Diagnosis Date Heart attack (HCC) 2010 Hyperlipidemia Hypertension Hospital Course: The patient was admitted for the above. He was treated with surgery and improved over the course of his hospitalization. Consults: none Procedures: left Hip total replacement Complications: none Discharge Condition: good Post op anemia: acute blood loss Lab Results Component Value Date/Time HGB 12.8 06/20/2024 05:45 AM HGB 16.6 05/17/2024 11:23 AM HGB 17.6 05/10/2024 01:20 PM HGB 17.3 04/13/2024 09:23 AM Estimate Blood Loss: BMI: Body mass index is 30.49 kg/m . Over Weight Disposition: Home Patient Instructions: Medication List START taking these medications oxyCODONE-acetaminophen 5-325 MG per tablet Commonly known as: Percocet Take 1-2 tablets by mouth every 6 hours as needed for Pain for up to 7 days. Max Daily Amount: 8 tablets CONTINUE taking these medications aspirin 81 MG chewable tablet atorvastatin 20 MG tablet Commonly known as: Lipitor Take 1 tablet by mouth daily Bystolic 5 MG tablet Generic drug: nebivolol losartan-hydroCHLOROthiazide 100-12.5 MG per tablet Commonly known as: Hyzaar Take 1 tablet by mouth daily omeprazole 20 MG delayed release capsule Commonly known as: PRILOSEC Take 1 capsule by mouth every morning (before breakfast) Where to Get Your Medications These medications were sent to [facility] [id number] [facility] [address] [place] [address] - [phone] [place] [id number] oxyCODONE-acetaminophen 5-325 MG per tablet Activity: Physical Therapy Wound Care: keep wound clean and dry, shower after 4 days if no drainage Other: Follow-up with EVANS FOSTER MD in 2 weeks. Signed: EVANS FOSTER MD, M.D. 06/20/2024 11:34 AM documented in this encounterBon [facility] Hospital Discharge instructions* Discharge Instructions* Elly Meadows RN - 06/19/2024 6:07 PM EDT Move toes to improve circulation. Continue exercises as instructed by Physical Therapy. Ambulate with walker. No driving until cleared by Physician May use Tylenol for mild pain. Do not exceed 4000 mg of Acetaminophen in a 24 hour period. May use ice as needed for 20-30 minutes at a time. Place cloth between ice pack and incision site. Continue to use incentive spirometer frequently during the day. May shower on Post op day #4 with use of CHG soap if waterproof dressing is intact. Do not remove dressing until follow up appointment with Dr. Foster on 07/04/24 @ 1:45 PM Report the following signs or any questions regarding your physical condition to your surgeon immediately: Dr. Foster: [phone] Excessive swelling of, or around the wound area. Redness. Temperature of 100 degrees (F) or above. Excessive pain. * Discharge Instr - Activity* Elly Meadows RN - 06/19/2024 6:08 PM EDT As tolerated with use of walker as instructed by Physical Therapy * Discharge Instr - Diet* Elly Meadows RN - 06/20/2024 11:41 AM EDT Good nutrition is important when healing from an illness, injury, or surgery. Follow any nutrition recommendations given to you during your hospital stay. If you were given an oral nutrition supplement while in the hospital, continue to take this supplement at home. You can take it with meals, in-between meals, and/or before bedtime. These supplements can be purchased at most local grocery stores, pharmacies, and chain [employer]stores. If you have any questions about your diet or nutrition, call the hospital and ask for the dietitian. Regular diet * Attachments The following attachments cannot be sent through Care Everywhere. * Surgical Site Infections: Prevention: General Info (Greek) * Hip Replacement Surgery: Posterior: Post-op (Greek) documented in this encounterBon [facility] Reason for cardiology consult: Cardiac clearance for left hip replacement Chief Complaint: Dyspnea on exertion HPI: Willie Lora is a 53 y.o. male with history of coronary artery disease prior myocardial infarction and angioplasty with stent placement of the left circumflex artery 08/03/2011 in [facility] in [place]. Also he has history of hypertension, hyperlipidemia, tobacco and drug abuse. The patient states that he was in drug rehab facility in [place] in 2010 when he had heartburn and tooth ache and he ended up having NC and cardiac catheterization and angioplasty as discussed above. He followed up with cardiology in [place] for 1 year then he was out of insurance till 2014 when he started to follow with a assayer helper and he followed up with her for 3 years during which he was taking his medications. Again he went out of insurance and out of medications and he just went back on insurance and he restarted medications April 13, 2024. 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 He denies any chest pain at rest or with exertion. He admits exertional dyspnea which got better since he quit Celebrex. He denies orthopnea or paroxysmal nocturnal dyspnea or dizziness or palpitations or legs edema or leg discomfort on exertion. He denies snoring however he feels sleepy around 3 PM and he can take a nap. He is a smoker for a long time 1 pack/day since he was 17-year-old and he cut down to half pack per day since his NC in 2010. He used to drink alcohol every day since he was 19 till he was 36 and now he drinks probably several beers in addition to 1-2 shots once a month. He did in the past cocaine, marijuana and heroine. He went to detox program. Currently he smokes marijuana and sometimes he chews marijuana Gummies. No cocaine or heroin or other drugs. Family history: Many members in his family has coronary artery disease. Cardiology ROS: GENERAL: Denies fever, chills, night sweats, weight loss. HEENT: Denies changes in vision, photophobia, changes in hearing, epistaxis, oral bleeding. CARDIOVASCULAR: He reports exertional dyspnea. Denies chest pain, orthopnea/PND, lower extremity edema, palpitations, lightheadedness/dizziness. RESPIRATORY: Denies SOB, coughing, wheezing GI: Denies abdominal pain, nausea/vomiting, heartburn, melena/hematochezia. RENAL: Denies dysuria, hematuria, flank pain. MSK: Denies muscle weakness/pain, arthralgias/joint pain. NEUROLOGIC: Denies LOC, weakness, numbness, headaches. SKIN: Denies abnormal rashes or bleeding. PSYCH: Denies significant anxiety, depression, sleep disturbances. Past Medical History He has a past medical history of Blindness of left eye, Coronary artery disease, Hyperlipidemia, Hypertension, and Myocardial infarction ([facility] Surgical History He has a past surgical history that includes Cardiac catheterization and Coronary stent placement. Social History He reports that he has been smoking cigarettes. He has a 18.00 pack-year smoking history. He has never used smokeless tobacco. He reports current alcohol use of about 7.0 standard drinks of alcohol per week. He reports current drug use. Drug: Marijuana. Family History No family history on file. Allergies Patient has no known allergies. Medications Current Outpatient Medications: aspirin 81 mg EC tablet, Take 81 mg by mouth in the morning., Disp: , Rfl: atorvastatin (Lipitor) 20 mg tablet, Take 1 tablet by mouth in the morning., Disp: , Rfl: losartan-hydrochlorothiazide (Hyzaar) 50-12.5 mg tablet, Take 1 tablet by mouth in the morning., Disp: , Rfl: nebivolol (Bystolic) 5 mg tablet, Take 1 tablet (5 mg) by mouth in the morning., Disp: 30 tablet, Rfl: 11 Last Recorded Vitals Visit Vitals BP (!) 140/93 (BP Location: Left arm, Patient Position: Sitting) Pulse 101 Ht 1.778 m (5' 10 ) Wt 97.1 kg (214 lb) SpO2 97% BMI 30.71 kg/m??? Smoking Status Every Day BSA 2.19 m??? Physical Examination: GENERAL: alert and oriented x3, well developed, in no acute distress. HEAD: atraumatic, normocephalic. EYES: YAQUELIN, EOMI. NECK: trachea midline, no JVD present, no carotid bruits present. CARDIAC: S1, S2 present. RRR. No murmur, rubs, or gallops. RESPIRATORY: CTAB, no increased effort of breathing, no rales, rhonchi, or wheezing. ABDOMEN: soft, nontender, nondistended. EXTREMITIES: no lower extremity edema,. No rash/skin discoloration present. NEURO: strength/sensation equal and symmetric in bilateral upper and lower extremities. PSYCH: appropriate mood, affect, and judgement. Labs: 04/13/2024 Cholesterol 251, HDL 34, triglyceride 537, LDL cannot be calculated due to high triglyceride Direct LDL 142 TSH 1.68 HbA1c 5.8% Sodium 135, potassium 3.9, glucose 173, BUN 13, creatinine 1, GFR above 90 White blood count 9, hemoglobin 1 (more content not included)...[facility] Diagnosis Status post total replacement of left hip- Primary Status post total replacement of left hip Hypertension Unspecified essential hypertension [facility] Diagnosis Essential hypertension Unspecified essential hypertension History of NC (myocardial infarction) Old myocardial infarction Hyperglycemia Other abnormal glucose Encounter for screening colonoscopy- Primary Special screening for malignant neoplasms, colon [facility]* Diagnosis Impingement of right shoulder Rotator cuff tendinitis, right Chronic right shoulder pain Pain in joint, shoulder region Encounter for screening colonoscopy Special screening for malignant neoplasms, colon [facility]* Diagnosis Pre-op testing Preoperative examination, unspecified Colon cancer screening Special screening for malignant neoplasms, colon [facility]* Diagnosis Right foot pain Pain in limb [facility]* Diagnosis Osteoarthritis of right midfoot [facility]* Diagnosis Nausea Nausea alone [facility]* Diagnosis Arthritis of right ankle Unspecified arthropathy, ankle and foot [facility]* Diagnosis Skin lesions STD exposure Screening for HIV without presence of risk factors Special screening examination for other specified viral diseases Need for hepatitis C screening test Special screening examination for other specified viral diseases Viral warts, unspecified type [facility]* Diagnosis Bacterial folliculitis- Primary Other specified disease of hair and hair follicles Seborrheic keratosis Melanocytic nevus of trunk Benign neoplasm of skin of trunk, except scrotum Inflamed seborrheic keratosis [facility]* Diagnosis Right foot pain- Primary Pain in soft tissues of limb Arthritis of right foot [facility] Narrative* Auth/CertSpecialtyDiagnoses / ProceduresReferred By ContactReferred To Contact Diagnoses Encounter for screening colonoscopy Procedures IL COLON CA SCRN NOT HI RSK IND IL COLONOSCOPY FLX DX W/COLLJ SPEC WHEN PFRMD IL COLONOSCOPY W/BIOPSY SINGLE/MULTIPLE IL COLSC FLX W/RMVL OF TUMOR POLYP LESION SNARE TQ COLORECTAL CANCER SCREENING, NOT HIGH RISK Damien Greenberg MD [address] [place] [address] Phone: tel: [facility] [address] [place] [address] Referral IDStatusReasonStart DateExpiration DateVisits RequestedVisits [id number] [facility] for visit Narrative* Imaging (Routine) - Closed SpecialtyDiagnoses / ProceduresReferred By ContactReferred To ContactRadiology Diagnoses Right foot pain Procedures MRI FOOT RIGHT WO CONTRAST Chip Buitrago, SAMUEL [address] [place] [address] Phone: tel: fax: Referral IDStatusReasonStart DateExpiration DateVisits RequestedVisits [id number]/1/20254/ [facility] for visit Narrative* Imaging (Routine) - Closed SpecialtyDiagnoses / ProceduresReferred By ContactReferred To ContactRadiology Diagnoses Osteoarthritis of right midfoot Procedures MRI ANKLE RIGHT WO CONTRAST Vijaya Del Real, BRANDY - INTERVENTIONAL RADIOLOGY RN [address] [place] [address] Phone: tel: fax: Referral IDStatusReasonStart DateExpiration DateVisits RequestedVisits [id number]/6/20255/ [facility] for visit Narrative* Imaging (Routine) - Open SpecialtyDiagnoses / ProceduresReferred By ContactReferred To ContactRadiology Diagnoses Nausea Procedures US GALLBLADDER RUQ Augustine, Harpreet Kline MD [address] [facility] [address] [place] [address] Phone: tel: fax: Referral IDStatusReasonStart DateExpiration DateVisits RequestedVisits [id number] [facility] for visit Narrative* Outpatient Service (Routine) - OpenSpecialtyDiagnoses / ProceduresReferred By ContactReferred To Contact Cardiology Diagnoses Arthritis of right ankle Procedures EKG 12 lead Vijaya Del Real, GLOVE STITCHER - INTERVENTIONAL RADIOLOGY RN [address] [place] [address] Phone: tel: fax: Referral IDStatusReasonStart DateExpiration DateVisits RequestedVisits [id number]/[id number] [facility] for visit Narrative* Rehabilitation - Outpatient (Routine) - AuthorizedSpecialtyDiagnoses / ProceduresReferred By Contact Referred To ContactPhysical Therapy Diagnoses Encounter for other orthopedic aftercare Primary osteoarthritis, right ankle and foot Procedures IL PHYSICAL THERAPY EVALUATION HIGH COMPLEX 45 MINS Chip Buitrago, DPM [address] [place] [address] Phone: tel: fax: Josué Cox, PT [address] [place] [address] Phone: tel: fax: Referral IDStatusReasonStart DateExpiration DateVisits RequestedVisits [id number] [facility] Summary Purpose Family History No Family History Records FoundNo Family History Records FoundNo Family History Records FoundNo Family History Records FoundNo Family History Records FoundNo Family History Records FoundNo Family History Records FoundNo Family History Records FoundNo Family History Records FoundNo Family History Records Found Advance Directives Date ActivatedDate ZkjqwkujabiOiqfgmej93/ 9:00 AMNameRelationship Healthcare Agent RelationshipCommunicationCarolyn MichaelGirlfriendPrimary Decision Maker* * Date ActivatedDate NrqsalugxeoZubhmhkp89/28/2024 9:00 AM06/20/2024 4:25 PMName RelationshipHealthcare Agent RelationshipCommunicationCarolyn Izabelrlfriend Primary Decision Maker* * NameRelationshipHealthcare Agent RelationshipCommunicationCarolyn Michael GirlfriendPrimary Decision Maker* * Date ActivatedDate VlvyhcafhziZupqjukf76/28/2024 9:00 AM06/20/2024 4:25 PMName RelationshipHealthcare Agent RelationshipCommunicationCarolyn Izabelrlfriend Primary Decision Maker* * NameRelationshipHealthcare Agent RelationshipCommunicationCarolyn Michael GirlfriendPrimary Decision Maker* * NameRelationshipHealthcare Agent RelationshipCommunicationCarolyn Michael GirlfriendPrimary Decision Maker* * NameRelationshipHealthcare Agent RelationshipCommunicationCarolyn Michael GirlfriendPrimary Decision Maker* * NameRelationshipHealthcare Agent RelationshipCommunicationCarolyn Michael GirlfriendPrimary Decision Maker* * NameRelationshipHealthcare Agent RelationshipCommunicationCarolyn Michael GirlfriendPrimary Decision Maker* * Additional Source Comments (unrecognized sect ion and content) No Status Records FoundNo Status Records FoundNo Status Records FoundNo Status Records FoundNo Status Records FoundNo Status Records FoundNo Status Records FoundNo Status Records FoundNo Status Records FoundNo Status Records Found INFORMATION SOURCE (unrecogn ized section and content) DATE CREATED AUTHOR 02/08/2018 [facility] DATE CREATED AUTHOR AUTHOR'S ORGANIZ ATION 02/15/2018 [facility] DATE CREATED AUTHOR AUTHOR'S ORGANIZ ATION 05/31/2020 [facility] DATE CREATED AUTHOR AUTHOR'S ORGANIZ ATION 02/17/2021 [facility] DATE CREATED AUTHOR AUTHOR'S ORGANIZ ATION 12/30/2022 [facility] DATE CREATED AUTHOR AUTHOR'S ORGANIZ ATION 01/20/2025 [facility] DATE CREATED AUTHOR AUTHOR'S ORGANIZ ATION 03/08/2025 [facility] DATE CREATED AUTHOR AUTHOR'S ORGANIZ ATION 03/10/2025 [facility] DATE CREATED AUTHOR AUTHOR'S ORGANIZ ATION 04/21/2025 [facility] DATE CREATED AUTHOR AUTHOR'S ORGANIZ ATION 05/17/2025 [facility] EPIC Reason for Visit (unrecogniz ed section and content) SpecialtyDiagnoses / ProceduresReferred By ContactReferred To Contact Diagnoses Primary osteoarthritis of left hip Primary osteoarthritis of left hip [M16.12] Procedures IL ARTHRP ACETBLR/PROX FEM PROSTC AGRFT/ALGRFT HIP TOTAL ARTHROPLASTY Evans Foster MD [address] [place] [address] [facility] [address] [place] [address] Referral IDStatusReasonStart DateExpiration DateVisits RequestedVisits [id number] Skin LesionSkin CheckSpecialty Diagnoses / ProceduresReferred By ContactReferred To ContactDermatology Diagnoses skin lesion Procedures office visit Harpreet Bradshaw MD [address] [facility] [address] [place] [address] Phone: tel: fax: Pao Miller, DAVIDSON [address] [facility] [address] [place] [address] Phone: tel: fax: Referral IDStatusReasonStart DateExpiration DateVisits RequestedVisits [id number]/20253/7/[id number] Ordered Prescriptions (unrec ognized section and content) PrescriptionSigDispensedRefillsStart DateEnd Date rivaroxaban (XARELTO) 10 MG TABS tablet Indications:Status post total replacement of left hipTake 1 tablet by mouth daily (with breakfast) for 12 days 12 tablet oxyCODONE-acetaminophen (PERCOCET) 5-325 MG per tablet Indications:Status post total replacement of left hipTake 1-2 tablets by mouth every 6 hours as needed for Pain for up to 7 days. Max Daily Amount: 8 tablets 40 tablet Scheduled Active and Recently Administ ered Medications (unrecognized section and content) Medication Order acetaminophen (TYLENOL) tablet 650 mg (COMPLETED) 650 mg, Oral, ONCE, 1 dose, On Wed06/19/24 at 0930, Maximum dose of acetaminophen is 4000 mg from all sources in 24 hours., Give in pre-op * 1153 (Given - Provider: Elly Eckert RN) acetaminophen (TYLENOL) tablet 650 mg 650 mg, Oral, EVERY 6 HOURS, First dose on Wed06/19/24 at 1800, Until Discontinued, Maximum dose of acetaminophen is 4000 mg from all sources in 24 hours., Post-op * 1731 (Given - Provider: Yuki Liu RN) * 2302 (Not Given - Provider: Noemí Low RN - Reason: Patient/family refused - Comment: states that dont help worth shit ) * 0446 (Given - Provider: Noemí Low RN) * 1134 (Not Given - Provider: Yuki Liu RN - Reason: Contraindicated - Comment: Pt receiving Percocet) * 1800 (Due) aspirin chewable tablet 81 mg 81 mg, Oral, DAILY, First dose on Wed06/20/24 at 0900, Until Discontinued * 0850 (Given - Provider: Yuki Liu, KENRICK) atorvastatin (LIPITOR) tablet 20 mg 20 mg, Oral, DAILY, First dose on Wed06/19/24 at 2145, Until Discontinued * 2302 (Not Given - Provider: Noemí Low RN - Reason: Patient took at home) * 2100 (Due) ceFAZolin (ANCEF) 2,000 mg in sterile water 20 mL IV syringe (COMPLETED) 2,000 mg, IntraVENous, ONCE, On Wed06/19/24 at 1100, For 1 dose, Administer over 5 mins. Reconstitute 2 g vial with 20 mL Sterile Water. Withdraw entire contents., Pre-op (day of surgery) * 1309 (New Bag - Provider: Anna Pablo, GLOVE STITCHER - DYE LAB TECHNICIAN) ceFAZolin (ANCEF) 2,000 mg in sterile water 20 mL IV syringe (COMPLETED) 2,000 mg, IntraVENous, EVERY 8 HOURS, 2 doses, First dose on Wed06/19/24 at 2100, Last dose on Wed06/20/24 at 0500, Antimicrobial Indications: Surgical Prophylaxis, Administer over 5 mins. Reconstitute 2 g vial with 20 mL Sterile Water. Withdraw entire contents., Post-op * 2113 (Given - Provider: Noemí Low RN) * 0440 (Given - Provider: Noemí Low RN) celecoxib (CELEBREX) capsule 400 mg (COMPLETED) 400 mg, Oral, ONCE, 1 dose, On Wed06/19/24 at 0930, Give in pre-op * 1155 (Given - Provider: Elly Eckert RN) enoxaparin Sodium (LOVENOX) injection 30 mg 30 mg, SubCUTAneous, 2 TIMES DAILY, First dose on Wed06/20/24 at 0900, Until Discontinued, Indication of Use: Prophylaxis-DVT/PE, Other, Other Enoxaparin Indication: post-op, Administer by deep subCUTAneous injection with pt lying down. Alternate injection sites on abdominal wall. Do not rub site after injection. Check with provider prior to any invasive procedure., Post-op * 0849 (Given - Provider: Yuki Liu RN) * 2100 (Due) hydroCHLOROthiazide (HYDRODIURIL) tablet 12.5 mg(Linked Group 1) 12.5 mg, Oral, DAILY, First dose on Wed06/20/24 at 0900, Until Discontinued * 0850 (Given - Provider: Yuki Liu RN) losartan (COZAAR) tablet 100 mg(Linked Group 1) 100 mg, Oral, DAILY, First dose on Wed06/20/24 at 0900, Until Discontinued * 0850 (Given - Provider: Yuki Liu RN) metoprolol succinate (TOPROL XL) extended release tablet 25 mg 25 mg, Oral, DAILY, First dose on Wed06/20/24 at 0900, Until Discontinued, Substituted for nebivolol (BYSTOLIC) * 0850 (Given - Provider: Yuki Liu RN) nicotine (NICODERM CQ) 14 MG/24HR 1 patch 1 patch, TransDERmal, Administer over 24 Hours, DAILY, First dose on Wed06/19/24 at 2030, Apply new patch to nonhairy, clean, dry skin on the upper body or upper outer arm. Rotate patch sites. Notify pharmacy if patient or provider prefers patch to be removed at bedtime and replaced in the morning. Hazardous Medication -- Refer to facility policy for handling and disposal. * 2111 (Patch Applied - Provider: Noemí Low RN) * 0850 (Patch Applied - Provider: Yuki Liu RN) pantoprazole (PROTONIX) tablet 40 mg 40 mg, Oral, DAILY BEFORE BREAKFAST, First dose (after last modification) on Wed06/19/24 at 2330, Until Discontinued, Do not crush or break. Substituted for Omeprazole (PRILOSEC). * 2327 (Given - Provider: Noemí Low RN) * 0850 (Given - Provider: Yuki Liu RN) sodium chloride flush 0.9 % injection 5-40 mL 5-40 mL, IntraVENous, EVERY 12 HOURS SCHEDULED (2 times per day), First dose on Wed06/19/24 at 2100, Until Discontinued, For Line Patency: Peripheral IV = 5 mL; Midline or Central Line = 10 mL/lumen. If following IV push medication, administer flush at same rate as the IV push. Flush volume is determined by type of infusion therapy being given. For non-viscous solutions use: Peripheral IV = 5 mLMidline or Central Line = 10 mL/lumen For viscous solutions (i.e. blood components, parenteral nutrition, contrast media, or after obtaining blood sample) use: Peripheral IV = 10 mL Midline or Central Line = 20 mL/lumen, Post-op * 1952 (Not Given - Provider: Noemí Low RN - Reason: IV Fluid Infusing) * 0857 (Not Given - Provider: Yuki Liu RN - Reason: IV Fluid Infusing) * 2100 (Due) tranexamic acid (LYSTEDA) tablet 1,300 mg (COMPLETED) 1,300 mg, Oral, ONCE, 1 dose, On Wed06/19/24 at 0930, Do not crush or break., Give in pre-op * 1153 (Given - Provider: Elly Eckert RN) tranexamic acid (LYSTEDA) tablet 1,300 mg (COMPLETED) 1,300 mg, Oral, ONCE, 1 dose, On Wed06/20/24 at 0000, Do not crush or break. to be given 12 hours after initial pre-op dose * 2326 (Given - Provider: Noemí Low RN) tranexamic acid (LYSTEDA) tablet 1,300 mg (COMPLETED) 1,300 mg, Oral, ONCE, 1 dose, On Wed06/19/24 at 1800, Do not crush or break. Give dose 6 hours after initial pre-op dose * 1731 (Given - Provider: Yuki Liu RN) Medication Order// lactated ringers IV soln infusion SOLN IntraVENous, at 80 mL/hr, CONTINUOUS, Starting on Wed06/19/24 at 1700, Saline Lock IV with adequate oral intake., Post-op * 1716 (Restarted - Provider: Yuki Liu RN) * 0900 (Stopped - Provider: Yuki Liu RN - Comment: Jorge Srivastava NP) Medication Order// 0.9 % sodium chloride infusion IntraVENous, at 5-250 mL/hr, PRN, if patient receiving piggyback infusions and maintenance fluids are not ordered, Starting on Wed06/19/24 at 1642, For piggyback infusion, administer at same rate aspiggyback for a total of 25 mL. Enter 25 mL into dose field and piggyback rate into rate field of order. If piggyback is infusing at a rate less than 100 mL/hr, enter 25 mL into dose field and 100 mL/hr into rate field of order., Post-op acetaminophen (TYLENOL) tablet 650 mg 650 mg, Oral, EVERY 6 HOURS PRN, Starting on Wed06/19/24 at 1642, Until Discontinued, Pain Mild (1-3), Maximum dose of acetaminophen is 4000 mg from all sources in 24 hours. HYDROcodone-acetaminophen (NORCO) 5-325 MG per tablet 2 tablet (CANCELED) 2 tablet, Oral, EVERY 6 HOURS PRN, Starting on Wed06/19/24 at 1642, Until Wed06/20/24 at 0807, Pain Severe (7-10), Maximum dose of acetaminophen is 4000 mg from all sources in 24 hours. * 2111 (Given - Provider: Noemí Low RN) * 0336 (Given - Provider: Noemí Low RN) HYDROmorphone HCl PF (DILAUDID) injection 0.5 mg (CANCELED) 0.5 mg, IntraVENous, EVERY 3 HOURS PRN, Starting on Wed06/19/24 at 1642, Until Wed06/20/24 at 0807, Pain Severe (7-10), If oral and IV narcotics ordered, use oral first and only use IV if oral is ineffective or cannot take oral. Do Not give oral and IV within 1 hour of each other unless specifically ordered., Post-op * 0055 (Given - Provider: Noemí Low RN - Comment: okayed to give by Kenn LEYVA) arezazbgj-OICarknyyhk-gwclpixj 60-150-60 MG/50ML injection (CANCELED) PRN, Starting on Wed06/19/24 at 1326, Until Wed06/19/24 at 1543, Intra-op * 1326 (Given - Provider: Evans Foster MD - Comment: injected with 50ml of sodium chloride) oxyCODONE-acetaminophen (PERCOCET) 5-325 MG per tablet 1 tablet(Linked Group 2) 1 tablet, Oral, EVERY 4 HOURS PRN, Starting on Wed06/20/24 at 0807, Until Discontinued, Pain Moderate (4-6), Maximum dose of acetaminophen is 4000 mg from all sources in 24 hours. * 0849 (See Alternative - Provider: Yuki Liu RN) oxyCODONE-acetaminophen (PERCOCET) 5-325 MG per tablet 2 tablet(Linked Group 2) 2 tablet, Oral, EVERY 4 HOURS PRN, Starting on Wed06/20/24 at 0807, Until Discontinued, Pain Severe (7-10), Maximum dose of acetaminophen is 4000 mg from all sources in 24 hours. * 0849 (Given - Provider: Yuki Liu RN) sod chloride IRR soln 0.9 % 1,000 mL with gentamicin (GARAMYCIN) 80 mg (CANCELED) PRN, Starting on Wed06/19/24 at 1325, Intra-op * 1325 (Given - Provider: Evans Foster MD) sod chloride IRR soln 0.9 % 3,000 mL with gentamicin (GARAMYCIN) 80 mg (CANCELED) PRN, Starting on Wed06/19/24 at 1326, Intra-op * 1326 (Given - Provider: Evans Foster MD) sodium chloride (PF) 0.9 % injection (CANCELED) PRN, Starting on Wed06/19/24 at 1326, Until Wed06/19/24 at 1543, Intra-op * 1326 (Given - Provider: Evans Foster MD - Comment: injected with 50ml of BK) sodium chloride flush 0.9 % injection 5-40 mL 5-40 mL, IntraVENous, PRN, Starting on Wed06/19/24 at 1642, Until Discontinued, Line Care, After every IV line use, For Line Patency: Peripheral IV = 5 mL; Midline or Central Line = 10 mL/lumen. If following IV push medication, administer flush at same rate as the IV push. Flush volume is determined by type of infusion therapy being given. For non-viscous solutions use: Peripheral IV = 5 mL Midline or Central Line = 10 mL/lumen For viscous solutions (i.e. blood components, parenteral nutrition, contrast media, or after obtaining blood sample) use: Peripheral IV = 10 mL Midline or Central Line = 20 mL/lumen, Post-op vancomycin (VANCOCIN) injection (CANCELED) PRN, Starting on Wed06/19/24 at 1506, Until Wed06/19/24 at 1543, Intra-op * 1506 (Given - Provider: Evans Foster MD) Medication Order ketorolac-BUPivacaine 60-150-60 MG/50ML injection 1 dose, Starting on Wed06/19/24 at 1204, Until Wed06/20/24 at 0014, ArmaniShannen: cabinet override, Shannen Lomeli: cabinet override * 1215 (Due) Order Group 1: losartan (COZAAR) tablet 100 mgJump to med 100 mg, Oral, DAILY, First dose on Wed06/20/24 at 0900, Until Discontinued And hydroCHLOROthiazide (HYDRODIURIL) tablet 12.5 mgJump to med 12.5 mg, Oral, DAILY, First dose on Wed06/20/24 at 0900, Until Discontinued Group 2: oxyCODONE-acetaminophen (PERCOCET) 5-325 MG per tablet 1 tabletJump to med 1 tablet, Oral, EVERY 4 HOURS PRN, Starting on Wed06/20/24 at 0807, Until Discontinued, Pain Moderate (4-6), Maximum dose of acetaminophen is 4000 mg from all sources in 24 hours. Or oxyCODONE-acetaminophen (PERCOCET) 5-325 MG per tablet 2 tabletJump to med 2 tablet, Oral, EVERY 4 HOURS PRN, Starting on Wed06/20/24 at 0807, Until Discontinued, Pain Severe (7-10), Maximum dose of acetaminophen is 4000 mg from all sources in 24 hours. Medication Order/ sodium chloride flush 0.9 % injection 5-40 mL 5-40 mL, IntraVENous, EVERY 12 HOURS SCHEDULED (2 times per day), First dose on Wed10/31/24 at 2100, Until Discontinued, For Line Patency: Peripheral IV = 5 mL; Midline or Central Line = 10 mL/lumen.If following IV push medication, administer flush at same rate as the IV push. Flush volume is determined by type of infusion therapy being given. For non-viscous solutions use: Peripheral IV = 5 mL Midline or Central Line = 10 mL/lumen For viscous solutions (i.e. blood components, parenteral nutrition, contrast media, or after obtaining blood sample) use: Peripheral IV = 10 mL Midline or CentralLine = 20 mL/lumen, PACU only * 2100 (Due) Medication Order/ lactated ringers infusion IntraVENous, at 100 mL/hr, CONTINUOUS, Starting on Wed10/31/24 at 1030, Pre-op (day of surgery) * 1034 (New Bag - Provider: Elly Eckert RN) * 1129 (NoRateChange - Provider: BRANDY Rosenthal CRNA) * 1148 (Stopped - Provider: BRANDY Rosenthal CRNA) Medication Order/ 0.9 % sodium chloride infusion IntraVENous, at 5-250 mL/hr, PRN, if patient receiving piggyback infusions and maintenance fluids are not ordered, Starting on Wed10/31/24 at 1157, For piggyback infusion, administer at same rate as piggyback for a total of 25 mL. Enter 25 mL into dose field and piggyback rate into rate field of order. If piggyback is infusing at a rate less than 100 mL/hr, enter 25 mL into dose field and 100 mL/hr into rate field of order., PACU only droPERidol (INAPSINE) injection 0.625 mg 0.625 mg, IntraVENous, ONCE PRN, 1 dose, Starting on Wed10/31/24 at 1157, Until Wed11/01/24 at 1157, Nausea, Secondary antiemetic therapy., PACU only fentaNYL (SUBLIMAZE) injection 25 mcg 25 mcg, IntraVENous, EVERY 5 MIN PRN, 2 doses, Starting on Wed10/31/24 at 1157, Until Discontinued,Pain Moderate (4-6), For Phase I. If Phase II oral narcotics have been administered in the last 60 minutes, do not administer IV narcotics unless specifically approved by provider., PACU only fentaNYL (SUBLIMAZE) injection 50 mcg 50 mcg, IntraVENous, EVERY 5 MIN PRN, 2 doses, Starting on Wed10/31/24 at 1157, Until Discontinued,Pain Severe (7-10), For Phase I. If Phase II oral narcotics have been administered in the last 60 minutes, do not administer IV narcotics unless specifically approved by provider., PACU only naloxone 0.4 mg in 10 mL sodium chloride syringe IntraVENous, PRN, Opioid Reversal, Starting on Wed10/31/24 at 1157, PRN if respiratory rate is lessthan 6/min and patient is difficult to arouse then notify physician STAT. Mix 9 mL of sodium chloride 0.9% with 0.4 mg (1 mL) of naloxone (NARCAN) in 10 mL syringe. (Note: dilution is 0.04 mg/mL) Give 0.08 mg (2 mL of special dilution), slow IV push, repeat up to 0.4 mg (10 mL) or until patient is responsive to physical stimulation and respiratory rate is equal to or greater than 6 breaths/min. Continue to observe, if no response within 3 minutes of administration of 0.4 mg (10 mL) total, repeat dose (0.4 mg as administered previously). Concentration 0.04 mg/mL, PACU only ondansetron (ZOFRAN) injection 4 mg 4 mg, IntraVENous, ONCE PRN, 1 dose, Starting on Wed10/31/24 at 1157, Until Wed11/01/24 at 1157, Nausea, Initial antiemetic therapy., PACU only oxyCODONE (ROXICODONE) immediate release tablet 10 mg(Linked Group 1) 10 mg, Oral, PRN, 1 dose, Starting on Wed10/31/24 at 1157, Until Wed10/31/24 at 2359, Pain Severe (7-10), PHASE II, PACU only oxyCODONE (ROXICODONE) immediate release tablet 5 mg(Linked Group 1) 5 mg, Oral, PRN, 1 dose, Starting on Wed10/31/24 at 1157, Until Wed10/31/24 at 2359, Pain Moderate (4-6), PHASE II, PACU only sodium chloride flush 0.9 % injection 5-40 mL 5-40 mL, IntraVENous, PRN, Starting on Wed10/31/24 at 1157, Until Discontinued, Line Care, After every IV line use, For Line Patency: Peripheral IV = 5 mL; Midline or Central Line = 10 mL/lumen. If following IV push medication, administer flush at same rate as the IV push. Flush volume is determined by type of infusion therapy being given. For non-viscous solutions use: Peripheral IV = 5 mL Midline or Central Line = 10 mL/lumen For viscous solutions (i.e. blood components, parenteral nutrition,contrast media, or after obtaining blood sample) use: Peripheral IV = 10 mL Midline or Central Line= 20 mL/lumen, PACU only Order Group 1: oxyCODONE (ROXICODONE) immediate release tablet 5 mgJump to med 5 mg, Oral, PRN, 1 dose, Starting on Wed10/31/24 at 1157, Until Wed10/31/24 at 2359, Pain Moderate (4-6), PHASE II, PACU only Or oxyCODONE (ROXICODONE) immediate release tablet 10 mgJump to med 10 mg, Oral, PRN, 1 dose, Starting on Wed10/31/24 at 1157, Until Wed10/31/24 at 2359, Pain Severe (7-10), PHASE II, PACU only Care Teams (unrecognized sec tion and content) Team MemberRelationshipSpecialtyStart DateEnd Date Harpreet Bradshaw MD [address] [place], [place] [phone] PCP - GeneralFamily Medicine04/13/24Team MemberRelationshipSpecialtyStart DateEnd Date Harpreet Bradshaw MD [address] [place], [place] [phone] PCP - GeneralFamily Medicine09/26/24Team MemberRelationshipSpecialtyStart DateEnd Date Harpreet Bradshaw MD [address] [place], [place] [phone] PCP - GeneralFamily Medicine09/26/24Team MemberRelationshipSpecialtyStart DateEnd Date Harpreet Bradshaw MD [address] [place], [place] [phone] PCP - GeneralFamily Medicine09/26/24Team MemberRelationshipSpecialtyStart DateEnd Date Harpreet Bradshaw MD [address] [place] [address] [address] [place] [id number] PCP - GeneralFamily Medicine09/26/24Team MemberRelationshipSpecialtyStart DateEnd Date Harpreet Bradshaw MD [address] [place] [address] [address] [place] [address] PCP - GeneralFamily Medicine09/26/24Team MemberRelationshipSpecialtyStart DateEnd Date Harpreet Bradshaw MD [address] [facility] [address] [place] [address] PCP - GeneralFamily Medicine09/26/24Team MemberRelationshipSpecialtyStart DateEnd Date Harpreet Bradshaw MD [address] [place] [address] [address] [place] [id number] PCP - GeneralFamily Medicine09/26/24Team MemberRelationshipSpecialtyStart DateEnd Date Harpreet Bradshaw MD [address] [place] [address] [address] [place] [address] PCP - GeneralFamily Medicine09/26/24Team MemberRelationshipSpecialtyStart DateEnd Date Rosanne Stafford MD PCP - GeneralFamily Xtailbnt52/12/23Team MemberRelationshipSpecialtyStart Date End Date Rosanne Stafford MD PCP - GeneralFamily Bhsrwfgh37/12/23Team MemberRelationshipSpecialtyStart Date End Date Rosanne Stafford MD PCP - [facility]08/03/23Team MemberRelationshipSpecialtyStart Date End Date Rosanne Stafford MD PCP - [facility]08/03/23 FOR RECORDS PERTAINING TO PATIENTS WHO ARE OR HAVE BEEN ENROLLED IN A CHEMICAL DEPENDENCY/SUBSTANCEABUSE PROGRAM, SOME INFORMATION MAY BE OMITTED. This clinical summary was aggregated from multiple sources. Caution should be exercised in using it in the provision of clinical care. This summary normalizes information from multiple sources, and as a consequence, information in this document may materially change the coding, format and clinical context of patient data. In addition, data may be omitted in some cases. CLINICAL DECISIONS SHOULD BE BASED ON THE PRIMARY CLINICAL RECORDS. [facility]. provides no warranty or guarantee of the accuracy or completeness of information in this document.
[2025-06-20 10:20] LABS: Alanine Aminotransferase 51 U/L (16-63); Aspartate Amino Transferase 28 U/L (15-37); Cholesterol 142 mg/dL (<=200); HDL Cholesterol 33 mg/dL (40-60); Triglycerides 159 mg/dL (<=150); VLDL CHOLESTEROL 31.8 mg/dL
== END 2025-06-20 09:15 | disposition home or self-care (01) ==
LOC: LAB 09:16
PROVIDERS: Visit Provider Internal Medicine Cardiovascular Disease
DX: E78.2 Mixed hyperlipidemia (principal)
CPT/HCPCS: 36415; 80061; 84450; 84460